=== PATIENT | male | born 1955 | race Caucasian/White ===

== ENCOUNTER 2016-06-30 14:06 | Inpatient (IN) ==
[2016-06-30] MEDS ORDERED: Naloxone 0.4 MG/ML INJ IVP PRN (17:21)
[2016-06-30] MEDS ORDERED: *HR* LORazepam 2 MG/ML VIAL IVP PRN ×2 (17:28)
[2016-06-30] MEDS ORDERED: NON-FORMULARY MEDICATION 1 EACH EACH (Albuterol Sulfate [Albuterol Sulfate] 2.5 MG) IH PRN (17:29)
--- NOTE | 2016-06-30 17:47 | Internal Med History&Physical ---
Date of Encounter: 06/30/16 Time of Encounter: 17:30 Assessment and Plan (1) Recurrent cellulitis of lower leg Current visit: Yes Status: Acute Patient will be treated with IV antibiotics-vancomycin and Zosyn. Failed outpatient treatment. Monitor vital signs. (2) Pleural effusion, right Current visit: Yes Status: Acute Right-sided large pleural effusion. No prior images available to review. We will consult IR for paracentesis. Follow results of pleural fluid analysis. (3) Essential hypertension Current visit: Yes Status: Chronic Monitor blood pressure. Continue home medications. (4) Alcohol abuse Current visit: Yes Status: Acute Chronic alcohol abuse. At risk for alcohol withdrawal. We will place patient on CIWA protocol. High risk for complications due to use of IV Ativan. (5) Pneumonia Current visit: No Status: Suspected Chest x-rays findings suggestive of underlying pneumonia. Most likely aspiration given the history of alcohol abuse. Will treat with Zosyn. Qualifiers: Pneumonia type: aspiration pneumonia Aspiration pneumonia type: unspecified Laterality: right Lung location: lower lobe of lung Qualified Code(s): J69.0 - Pneumonitis due to inhalation of food and vomit (6) Alcoholic liver disease Current visit: Yes Status: Chronic Patient appears to be having underlying alcoholic liver disease and cirrhosis. Liver enzymes are elevated. We will get ultrasound of the abdomen for further evaluation. Internal Medicine - H&P: HPI Chief complaint: Bilateral lower extremity redness and swelling Admitted From: Emergency Dept Plans for Post Hospital Care: Home History of present illness: Mr. Ackerman is a 60 year old male patient with a history of cirrhosis, chronic alcohol abuse, COPD, hyperlipidemia and hypertension who presented to the ER after being referred there by his primary care provider. Patient has been dealing with bilateral lower extremity cellulitis for about a month and has had multiple episodes of pneumonia that were treated with outpatient antibiotics. He recently was started on Keflex 1 week back with no improvement in his cellulitis. As such was asked to go to the ER for further evaluation. Patient currently complains of about 5 out of 10 pain in his bilateral lower extremities. This has progressively been getting worse. He denies any shortness of breath or chest pain. No nausea or vomiting. He drinks alcohol regularly and takes about 30 beers every day. No fever chills or night sweats. No nausea or vomiting. No hematemesis or melena. Past Med Surg Social Fam HX - Past Medical History Attestation: Yes The following information was validated with the patient. Source: patient, old records reviewed Medical history: cirrhosis, COPD, hyperlipidemia, hypertension - Social History Smoking Status: Current every day smoker Smokeless Tobacco Status: No Alcohol use: heavy Drug use: none - Additional Family History Additional family history: Reviewed and found to be noncontributory at this time Internal Medicine - H&P: Meds Albuterol Sulfate 2.5 mg IH Q6H PRN 06/30/16 [History] Albuterol Sulfate [Proair Hfa] 2 puff IH Q4H PRN 06/30/16 [History] Cephalexin [Keflex] 500 mg PO Q6HR 06/30/16 [History] Gabapentin [Neurontin] 800 mg PO Q6H 06/30/16 [History] Ibuprofen [Motrin] 800 mg PO Q8HR PRN 06/30/16 [History] Lisinopril-HCTZ 20-12.5 [Prinzide 20-12.5] 1 each PO BID 06/30/16 [History] Metoprolol [Lopressor] 50 mg PO BID 06/30/16 [History] Omeprazole 20 mg PO DAILY 06/30/16 [History] Allergies codeine Allergy (Verified 06/30/16 11:49) See Comments Penicillins Allergy (Verified 06/30/16 11:49) See Comments All Systems PM: A 10-system review of systems was performed and is negative for pertinent findings except as documented above in the HPI. - Constitutional Constitutional: no chills, no fever(s), no night sweats - EENT Eyes: no change in vision, no discharge, no pain, no photophobia Ears: no ear discharge, no ear pain, no tinnitus Nose, mouth and throat: no dysphagia, no nasal discharge, no neck pain, no sore throat - Cardiovascular Cardiovascular ROS IM: no chest pain, no diaphoresis, no dyspnea, no lightheadedness, no palpitations, no syncope - Respiratory Respiratory: no cough, no dyspnea, no wheezing, no excessive phlegm production - Gastrointestinal Gastrointestinal: no abdominal pain, no diarrhea, no hematemesis, no hematochezia, no melena, no nausea, no vomiting - Musculoskeletal Musculoskeletal ROS IM: no numbness, no tingling - Integumentary Integumentary IM: erythema (In bilateral lower extremities) - Neurological Neurological ROS: no confusion, no convulsions, no focal weakness, no numbness, no tingling, no tremor(s) - Hematologic/Lymphatic Hematologic/Lymphatic: no easy bruising - Constitutional General appearance: Present: cooperative, mild distress, A&O X 3, answers questions appropriately - Neck Neck exam general surgery: Present: supple, trachea midline. Absent: lymphadenopathy - Respiratory Respiratory exam: Present: decreased breath sounds (In right lower lobe), prolonged expiratory phase. Absent: accessory muscle use, rales, rhonchi, wheezes - Cardiovascular Cardiovascular exam: Present: RRR, +S1, +S2. Absent: diastolic murmur, gallop, rubs, systolic murmur - GI/Abdominal GI/Abdominal exam: Present: normal bowel sounds, soft, no peritoneal signs. Absent: distended, tenderness - Extremities Exam Extremities exam: Present: warm, radial pulses palpable and symetrical. Absent : calf tenderness, cyanotic, pedal edema Additional comments: Bilateral lower extremity cellulitis extending from the ankle up to the knee on both legs circumferentially. No discharge. Warm to touch. Tenderness to palpation. - Neurological Exam Neurological exam: Present: CN II-XII intact, oriented X3, no focal deficits. Absent: facial droop, speech deficit - Skin Skin exam: Present: dry, erythema (As described above), intact Internal Med - H&P Results - Impressions Reviewed chest x-ray which shows large right-sided pleural effusion with possible underlying atelectasis/infiltrate - Attending Attestation This document has been at least partially created by [employer] voice recognition technology by Dr. Naidu. Errors in grammar, wording or other phrases may exist. If errors are found after the documentation is signed, they will be addressed individually in the addendum section of this document when appropriate.
[2016-06-30] MEDS: Gabapentin 400 MG CAPSULE PO SCH ×2 (19:11→21:11)
[2016-06-30] MEDS: Lisinopril-HCTZ 20-12.5mg TABLET PO SCH (21:11)
[2016-06-30] MEDS: Lactobacillus 1 EACH CAP.SPRINK PO SCH (21:12)
[2016-06-30] MEDS: *HR* HYDROcodone/Acet 5/325 mg TABLET PO PRN (21:12)
[2016-06-30] MEDS: 0.9 % Sodium Chloride 1,000 ML IVC SCH (21:18)
[2016-06-30] MEDS: *HR* LORazepam 2 MG/ML VIAL IVP PRN (22:07)
[2016-07-01] MEDS: Clindamycin 600 MG/50 ML 600 MG/50 ML IV.SOLN IVPB SCH ×2 (00:07→07:45)
[2016-07-01] MEDS: Gabapentin 400 MG CAPSULE PO SCH ×4 (00:07→16:52)
[2016-07-01] MEDS ORDERED: Vancomycin 1,500 MG in D5% in Water 250 ML IVPB SCH (02:00)
[2016-07-01] MEDS: *HR* HYDROcodone/Acet 5/325 mg TABLET PO PRN ×2 (02:07→07:40)
[2016-07-01] MEDS: *HR* LORazepam 2 MG/ML VIAL IVP PRN ×4 (02:09→20:30)
[2016-07-01 04:58] LABS: Basophils % 0.3 %; Hematocrit 42.2 % (37.5-50.1); Hemoglobin 13.9 g/dL (12.9-16.9); Immature Granulocytes % 0.5 % (0-4); Lymphocytes # 0.4 K/mcL (0.6-4.6); Lymphocytes % 10.3 %; Mean Corpuscular HGB Conc 32.9 g/dL (31.6-35.5); Mean Corpuscular Hemoglobin 29.1 pg (28.0-33.3); Mean Corpuscular Volume 88.3 fL (83.0-100.0); Mean Platelet Volume 8.7 fL (9.4-12.4); Monocytes # 0.4 K/mcL (0.0-1.3); Monocytes % 9.8 %; Neutrophils # 2.9 K/mcL (1.6-8.9); Platelet Count 141 K/mcL (140-400); Red Blood Count 4.78 M/mcL (4.19-5.50); Red Cell Distribution Width 18.8 % (11.5-14.5); Segmented Neutrophils % 79.1 %
[2016-07-01 05:15] LABS: BUN/Creatinine Ratio 5 (6-26); Calcium 8.4 mg/dL (8.6-10.8); Carbon Dioxide 27 mEq/L (19-29); Chloride 92 mEq/L (98-109); Glucose 158 mg/dL (70-99); Osmolality,Calculated 270 (280-300); Potassium 4.3 mEq/L (3.5-4.5); Sodium 130 mEq/L (136-145); eGFR For African Americans > 60 (> 60); eGFR For Non-African Americans > 60 (> 60)
[2016-07-01 05:16] LABS: Blood Urea Nitrogen 3 mg/dL (8-26)
[2016-07-01] MEDS: *HR* Enoxaparin 40 MG/0.4 ML SYRINGE SQ SCH (05:46)
[2016-07-01] MEDS: Folic Acid 1 MG TABLET PO SCH (07:40)
[2016-07-01] MEDS: Lisinopril-HCTZ 20-12.5mg TABLET PO SCH ×2 (07:40→20:30)
[2016-07-01] MEDS: Lactobacillus 1 EACH CAP.SPRINK PO SCH ×2 (07:40→20:30)
[2016-07-01] MEDS: Vitamin B Complex/Vit C/Vit E 1 EACH TABLET PO SCH (07:40)
[2016-07-01] MEDS: Thiamine (B-1) 100 MG TABLET PO SCH (07:40)
[2016-07-01] MEDS: 0.9 % Sodium Chloride 1,000 ML IVC SCH (07:47)
--- NOTE | 2016-07-01 10:28 | IR Procedure Note ---
Date of procedure: 07/01/16 Consent Obtained: Written consent Timeout: Correct patient and procedure verified, Correct site verified, Time out performed, Skin prep completed Local anesthetic: Lidocaine 1% Indications: Right pleural effusion Procedure Performed: Right thoracentesis Complications: None; Tolerated procedure well (Monitor on floor)
--- NOTE | 2016-07-01 16:15 | Internal Med Progress Note ---
Date of Encounter: 07/01/16 Time of Encounter: 15:00 - Assessment and plan (1) Pleural effusion, right Current Visit: Yes Status: Acute Assessment and plan: s/p thoracentesis, will obtain tests to rule out exuadte vs transudate. continue monitoring. fluid restrcition. (2) Alcoholic liver disease Current Visit: Yes Status: Chronic Assessment and plan: chronic alcohol intake. risk for DT. DT prophlyaixs. librium started. monitor lfts. (3) Essential hypertension Current Visit: Yes Status: Chronic Assessment and plan: likely elevated bp due to alcohol withdrwal, will ocntinue monitiring. (4) Pneumonia Current Visit: No Status: Suspected Assessment and plan: allergic to penicilins, risk of aspiration, xray concerning for pneumonia, will switch from clindamycin and give cephalosporins, rocephin, and flagyl por possible aspiration pneumonia since he was receving keflex as outpatient wothout reactions. Qualifiers: Pneumonia type: aspiration pneumonia Aspiration pneumonia type: unspecified Laterality: right Lung location: lower lobe of lung Qualified Code(s): J69.0 - Pneumonitis due to inhalation of food and vomit - Subjective Interval history: first encounter with the patient. seen and examined s/p thoracentesis. complains of distal tremors. productive cough, he has chronic cough for many months. chronic active smoker. drinks beer daily, last drink 2 days ago. - Constitutional Vitals: Temp Pulse Resp BP Pulse Ox 97.5 F L 88 20 164/104 97 07/01/16 11:47 07/01/16 11:47 07/01/16 11:47 07/01/16 11:47 07/01/16 11:47 General appearance: Present: cooperative, mild distress, A&O X 3, answers questions appropriately - Head Head exam: Present: atraumatic, normocephalic - Eye Eye exam: Present: PERRL, conjuntiva pink, sclera anicteric Pupils: Present: PERRL - Neck Neck exam general surgery: Present: supple, trachea midline. Absent: lymphadenopathy - Respiratory Respiratory exam: Present: decreased breath sounds, CTAB. Absent: accessory muscle use, rales, rhonchi, wheezes - Cardiovascular Cardiovascular exam: Present: RRR, +S1, +S2. Absent: diastolic murmur, gallop, rubs, systolic murmur - GI/Abdominal GI/Abdominal exam: Present: normal bowel sounds, soft, no peritoneal signs. Absent: distended, tenderness - Extremities Exam Extremities exam: Present: warm, radial pulses palpable and symetrical. Absent : calf tenderness, cyanotic, pedal edema - Neurological Exam Neurological exam: Present: CN II-XII intact, oriented X3, no focal deficits. Absent: pronater drift, facial droop, speech deficit - Skin Skin exam: Present: dry, intact Internal Medicine: Result - Labs CBC & Chem 7: 07/01/16 04:30 07/01/16 04:30 Labs: Short CBC 07/01/16 Range/Units 04:30 WBC 3.7 L (4.3-11.1) K/mcL Hgb 13.9 (12.9-16.9) g/dL Hct 42.2 (37.5-50.1) % Plt Count 141 (140-400) K/mcL Neutrophils # 2.9 (1.6-8.9) K/mcL BMP 07/01/16 04:30 Sodium 130 L Potassium 4.3 Chloride 92 L Carbon Dioxide 27 BUN 3 L Creatinine 0.58 L Glucose 158 H Calcium 8.4 L - Impressions Impressions Liver Ultrasound 06/30/16 19:45 IMPRESSION: 1. Limited evaluation due to overlying bowel gas. The gallbladder is not identified and evaluated. 2. Fatty liver. 3. Right pleural effusion. D/ / Prince Kohler MD / Prince Kohler MD Interpreting Provider: Prince Kohler MD Paracentesis Ultrasound 07/01/16 00:00 IMPRESSION: 1. Successful ultrasound guided right thoracentesis. D/ / Jarrod Lopez MD / Jarrod Lopez MD Interpreting Provider: Jarrod Lopez MD Chest X-Ray 07/01/16 10:28 IMPRESSION: Decreased size of right pleural effusion status post thoracentesis. No evidence of pneumothorax. Persistent volume loss, and right basilar opacity. D/ / Yonathan Skaggs MD / Yonathan Skaggs MD Interpreting Provider: Yonathan Skaggs MD Consult Discharge Plan - Plan Referrals: Tootie Montano, SMELLER [Primary Care Provider] - 07/07/16 11:00 am (Please follow up as schedule..)
[2016-07-01] MEDS: Vancomycin 1,500 MG in D5% in Water 250 ML IVPB SCH (16:33)
[2016-07-01] MEDS: MetroNIDAZOLE 500 MG/100 ML 500 MG/100 ML BAG IVPB SCH (16:55)
[2016-07-01 17:10] LABS: LDH,Pleural Fluid 317 Units/L (No Ref Range); Total Protein,Pleural Fluid 3.4 g/dL (No Ref Range)
[2016-07-01 17:26] LABS: RBC,Pleural Fluid 0.004 M/mcL
[2016-07-01 17:50] LABS: Appearance of Pleural Fl Clear (Clear)
[2016-07-02] MEDS: Gabapentin 400 MG CAPSULE PO SCH ×4 (00:15→17:25)
[2016-07-02] MEDS: MetroNIDAZOLE 500 MG/100 ML 500 MG/100 ML BAG IVPB SCH ×3 (00:15→16:14)
[2016-07-02] MEDS: *HR* LORazepam 2 MG/ML VIAL IVP PRN ×6 (00:15→23:05)
[2016-07-02] MEDS: Vancomycin 1,500 MG in D5% in Water 250 ML IVPB SCH ×2 (03:56→17:21)
[2016-07-02 04:25] LABS: Basophils % 0.5 %; Eosinophils # 0.1 K/mcL (0.0-0.6); Eosinophils % 0.9 %; Hematocrit 39.7 % (37.5-50.1); Hemoglobin 12.8 g/dL (12.9-16.9); Immature Granulocytes % 0.3 % (0-4); Lymphocytes # 1.2 K/mcL (0.6-4.6); Mean Corpuscular HGB Conc 32.2 g/dL (31.6-35.5); Mean Corpuscular Hemoglobin 28.4 pg (28.0-33.3); Mean Platelet Volume 8.8 fL (9.4-12.4); Monocytes # 0.3 K/mcL (0.0-1.3); Monocytes % 5.2 %; Neutrophils # 4.2 K/mcL (1.6-8.9); Platelet Count 127 K/mcL (140-400); Red Blood Count 4.51 M/mcL (4.19-5.50); Red Cell Distribution Width 18.8 % (11.5-14.5); Segmented Neutrophils % 72.1 %
[2016-07-02 04:38] LABS: BUN/Creatinine Ratio 9 (6-26); Blood Urea Nitrogen 5 mg/dL (8-26); Calcium 8.2 mg/dL (8.6-10.8); Carbon Dioxide 30 mEq/L (19-29); Chloride 92 mEq/L (98-109); Glucose 107 mg/dL (70-99); Osmolality,Calculated 268 (280-300); Potassium 3.3 mEq/L (3.5-4.5); Sodium 130 mEq/L (136-145); eGFR For African Americans > 60 (> 60); eGFR For Non-African Americans > 60 (> 60)
[2016-07-02 04:42] LABS: Albumin 2.7 g/dL (3.5-5.0); Albumin/Globulin Ratio 0.8 (1.1-2.2); Bilirubin,Direct 0.5 mg/dL (0.0-0.5); Bilirubin,Indirect 0.4 mg/dL (0.0-1.2); Bilirubin,Total 0.9 mg/dL (0.2-1.2); Globulin 3.3 g/dL (2.4-3.5)
[2016-07-02] MEDS: *HR* Enoxaparin 40 MG/0.4 ML SYRINGE SQ SCH (05:43)
[2016-07-02] MEDS: Thiamine (B-1) 100 MG TABLET PO SCH (09:52)
[2016-07-02] MEDS: Lactobacillus 1 EACH CAP.SPRINK PO SCH ×2 (09:52→21:30)
[2016-07-02] MEDS: Magnesium Oxide 400 MG TABLET PO SCH ×2 (09:52→21:31)
[2016-07-02] MEDS: Lisinopril-HCTZ 20-12.5mg TABLET PO SCH ×2 (09:52→21:31)
[2016-07-02] MEDS: Folic Acid 1 MG TABLET PO SCH (09:53)
[2016-07-02] MEDS: Vitamin B Complex/Vit C/Vit E 1 EACH TABLET PO SCH (09:53)
[2016-07-02] MEDS ORDERED: Magnesium Sulfate 1 GM in D5% in Water 100 ML IVPB ONE (10:45)
[2016-07-02] MEDS: Furosemide 40 MG TABLET PO SCH (11:36)
--- NOTE | 2016-07-02 11:41 | Internal Med Progress Note ---
Date of Encounter: 07/02/16 Time of Encounter: 11:39 - Assessment and plan (1) Pleural effusion, right Current Visit: Yes Status: Acute Assessment and plan: s/p thoracentesis, loile ytransudate, follow ldh continue monitoring. fluid restrcition. lasix and aldactone added in light of pssible chronic liver disease. will ocntinue motiring. (2) Alcoholic liver disease Current Visit: Yes Status: Chronic (3) Essential hypertension Current Visit: Yes Status: Chronic (4) Pneumonia Current Visit: No Status: Suspected Assessment and plan: allergic to penicilins, risk of aspiration, xray concerning for pneumonia, continue with rocephin, and flagyl por possible aspiration pneumonia since he was receving keflex as outpatient wothout reactions. Qualifiers: Pneumonia type: aspiration pneumonia Aspiration pneumonia type: unspecified Laterality: right Lung location: lower lobe of lung Qualified Code(s): J69.0 - Pneumonitis due to inhalation of food and vomit (5) Cellulitis Current Visit: Yes Status: Acute Assessment and plan: continue with vancomycn Qualifiers: Site of cellulitis: extremity Site of cellulitis of extremity: lower extremity Laterality: unspecified laterality Qualified Code(s): L03.119 - Cellulitis of unspecified part of limb - Subjective Interval history: seen and examined had atian and was under efect of medication during this encounter. productive cough, he has chronic cough for many months. chronic active smoker. drinks beer daily, last drink 2 days ago. - Constitutional Vitals: Temp Pulse Resp BP Pulse Ox 98.1 F 88 18 105/66 94 07/02/16 11:09 07/02/16 11:09 07/02/16 11:09 07/02/16 11:09 07/02/16 11:09 General appearance: Present: cooperative, A&O X 2, mild distress, answers questions appropriately - Head Head exam: Present: atraumatic, normocephalic - Eye Eye exam: Present: PERRL, conjuntiva pink, sclera anicteric Pupils: Present: PERRL - Neck Neck exam general surgery: Present: supple, trachea midline. Absent: lymphadenopathy - Respiratory Respiratory exam: Present: decreased breath sounds. Absent: accessory muscle use, rales, rhonchi, wheezes - Cardiovascular Cardiovascular exam: Present: RRR, +S1, +S2. Absent: diastolic murmur, gallop, rubs, systolic murmur - GI/Abdominal GI/Abdominal exam: Present: normal bowel sounds, soft, no peritoneal signs. Absent: distended, tenderness - Extremities Exam Extremities exam: Present: warm, radial pulses palpable and symetrical. Absent : calf tenderness, cyanotic, pedal edema - Neurological Exam Neurological exam: Present: CN II-XII intact, oriented X3, no focal deficits. Absent: pronater drift, facial droop, speech deficit - Skin Skin exam: Present: dry, intact Internal Medicine: Result - Labs CBC & Chem 7: 07/02/16 04:11 07/02/16 04:11 Labs: Short CBC 07/02/16 Range/Units 04:11 WBC 5.8 D (4.3-11.1) K/mcL Hgb 12.8 L (12.9-16.9) g/dL Hct 39.7 (37.5-50.1) % Plt Count 127 L (140-400) K/mcL Neutrophils # 4.2 (1.6-8.9) K/mcL BMP 07/02/16 04:11 Sodium 130 L Potassium 3.3 L D Chloride 92 L Carbon Dioxide 30 H BUN 5 L Creatinine 0.54 L Glucose 107 H Calcium 8.2 L Liver Function 07/02/16 Range/Units 04:11 Total Bilirubin 0.9 (0.2-1.2) mg/dL Direct Bilirubin 0.5 (0.0-0.5) mg/dL AST 62 H (5-34) Units/L ALT 49 (0-55) Units/L Alkaline Phosphatase 121 (38-126) Units/L Albumin 2.7 L (3.5-5.0) g/dL Consult Discharge Plan - Plan Referrals: Tootie Montano, CRANE CHASER [Primary Care Provider] - 07/07/16 11:00 am (Please follow up as schedule..)
--- NOTE | 2016-07-02 16:20 | ECHO - Doppler Report ---
Echocardiogram Name: Ivan Ackerman Date of Study: 07/02/2016 Date: 1955 Ht: 70.0 in Medical Record#: [id number] Age: 60 Wt: 231.0 lb Gender: Male BSA: 2.22 Order #: [id number] Location: [facility] Room #: 2A34 Reading Physician: Neeraj Garcia DO, FACLazaro, RORY Space Control Supervisor: CHASTITY ChawlaT, RD Ordering Physician: Perry Durant MD Primary Physician: Tootie Montano CNP Indications: LVF assessment Impressions: LVEF 60-65%. Normal LV chamber size, wall thickness and function. Mild left ventricular diastolic dysfunction. Right ventricle was not well visualized. Grossly, it is normal in function. No evidence of pulmonary hypertension. No obvious significant valvular dysfunction. Left Ventricular Wall Motion: Rest Echo Findings All wall segments showed normal motion. Findings: Study Quality * Technically sub-optimal due to poor echocardiographic windows. ECG Findings * Normal sinus rhythm. Left Ventricle * LVEF 60-65%. * Normal LV chamber size, wall thickness and function. * Mild left ventricular diastolic dysfunction. Right Ventricle * Right ventricle was not well visualized. Grossly, it is normal in function. Left Atrium * Left atrium is not visualized well enough to quantify size. Right Atrium * Right atrium is not visualized well enough to quantify size. Interatrial Septum * Interatrial septum not well evaluated. Aortic Valve * Aortic valve not well visualized. * No aortic regurgitation. * No aortic stenosis. Mitral Valve * Mild mitral annular calcification. * No mitral regurgitation. * No mitral stenosis. Tricuspid Valve * Normal tricuspid valve structure and function. * Trace tricuspid regurgitation. * No evidence of pulmonary hypertension. Pulmonic Valve * Pulmonic valve not well visualized. * No pulmonic regurgitation. Aorta * Normally sized aortic root. Pericardium * The pericardium appears normal. IVC * The IVC is not well evaluated. Pulmonary Artery * Pulmonary artery not well visualized. History Hypertension Hypercholesteremia Measurements: BP: 105/ 66 2D Normal Values RVIDd: 3.90 cm <2.7 cm IVSd: 1.20 cm 0.6 - 1.0 cm LVIDd: 4.50 cm 3.7 - 5.6 cm LVPWd: 1.30 cm 0.6 - 1.1 cm LVIDs: 3.00 cm 1.5 - 3.6 cm AO: 2.50 cm < 4.0 cm LA: 4.20 cm 2.0 - 4.0cm %FS: 33.30 cm >25 % LA volume: 96 Mitral Valve Dec Time:225.00 msec Peak E:.66 m/sec Peak A:.90 m/sec E/A Ratio:0.7 Peak E' Lat Frantz:9.55 cm/s Peak E' Med Frantz:4.97 cm/s E/E' Lat Ratio:6.9 E/E' Med Ratio:13.3 Tricuspid Valve TV Regurg Peak Grad: 19.00mmHg TV Regurg Peak Frantz: 2.17m/sec Updated by Neeraj Garcia DO, FACLazaro, RORY, THADDEUS on 07/02/2016 4:15:39 PM electronically signed on 07/02/2016 4:15:58 PM with status of Final Wall Motion Ramesh: 1=Normal, 2=Hypokinesis, 3=Akinesis, 4=Dyskinesis, 5=Aneurysmal, 6=Hyperkinetic, X=Not Visualized (Blank)=Missing
[2016-07-03] MEDS: *HR* LORazepam 2 MG/ML VIAL IVP PRN ×3 (00:26→21:39)
[2016-07-03] MEDS: MetroNIDAZOLE 500 MG/100 ML 500 MG/100 ML BAG IVPB SCH ×4 (00:26→23:30)
[2016-07-03] MEDS: Gabapentin 400 MG CAPSULE PO SCH ×5 (00:26→23:36)
[2016-07-03] MEDS: Vancomycin 1,500 MG in D5% in Water 250 ML IVPB SCH ×2 (03:59→18:11)
[2016-07-03 04:54] LABS: Albumin 2.7 g/dL (3.5-5.0); Albumin/Globulin Ratio 0.7 (1.1-2.2); Bilirubin,Direct 0.5 mg/dL (0.0-0.5); Bilirubin,Indirect 0.7 mg/dL (0.0-1.2); Bilirubin,Total 1.2 mg/dL (0.2-1.2); Globulin 3.7 g/dL (2.4-3.5); Total Protein 6.4 g/dL (6.0-8.3)
[2016-07-03] MEDS: *HR* Enoxaparin 40 MG/0.4 ML SYRINGE SQ SCH (05:50)
[2016-07-03] MEDS: Vitamin B Complex/Vit C/Vit E 1 EACH TABLET PO SCH (08:11)
[2016-07-03] MEDS: Lactobacillus 1 EACH CAP.SPRINK PO SCH ×2 (08:11→21:39)
[2016-07-03] MEDS: Thiamine (B-1) 100 MG TABLET PO SCH (08:11)
[2016-07-03] MEDS: Magnesium Oxide 400 MG TABLET PO SCH ×2 (08:12→21:39)
[2016-07-03] MEDS: Lisinopril-HCTZ 20-12.5mg TABLET PO SCH ×2 (08:12→21:39)
[2016-07-03] MEDS: Furosemide 40 MG TABLET PO SCH (08:12)
[2016-07-03] MEDS: Folic Acid 1 MG TABLET PO SCH (08:12)
[2016-07-03] MEDS ORDERED: Magnesium Sulfate 2 GM in D5% in Water 100 ML IVPB ONE (08:23)
[2016-07-03 08:56] LABS: Basophils # 0.1 K/mcL (0.0-0.2); Basophils % 0.8 %; Eosinophils # 0.2 K/mcL (0.0-0.6); Eosinophils % 3.5 %; Hemoglobin 13.7 g/dL (12.9-16.9); Immature Granulocytes % 0.5 % (0-4); Lymphocytes # 1.4 K/mcL (0.6-4.6); Lymphocytes % 20.9 %; Mean Corpuscular HGB Conc 32.6 g/dL (31.6-35.5); Mean Corpuscular Hemoglobin 29.4 pg (28.0-33.3); Mean Corpuscular Volume 90.1 fL (83.0-100.0); Mean Platelet Volume 9.4 fL (9.4-12.4); Monocytes # 0.7 K/mcL (0.0-1.3); Monocytes % 9.8 %; Neutrophils # 4.3 K/mcL (1.6-8.9); Platelet Count 114 K/mcL (140-400); Red Blood Count 4.66 M/mcL (4.19-5.50); Red Cell Distribution Width 18.6 % (11.5-14.5); Segmented Neutrophils % 64.5 %
[2016-07-03 09:06] LABS: BUN/Creatinine Ratio 9 (6-26); Blood Urea Nitrogen 7 mg/dL (8-26); Calcium 9.2 mg/dL (8.6-10.8); Carbon Dioxide 33 mEq/L (19-29); Chloride 91 mEq/L (98-109); Glucose 105 mg/dL (70-99); Osmolality,Calculated 280 (280-300); Potassium 3.8 mEq/L (3.5-4.5); Sodium 136 mEq/L (136-145); eGFR For African Americans > 60 (> 60); eGFR For Non-African Americans > 60 (> 60)
--- NOTE | 2016-07-03 10:57 | Pulmonology Consult Note ---
Date of Encounter: 07/03/16 Time of Encounter: 10:30 Assessment and Plan (1) Pleural effusion, right Current Visit: Yes Status: Acute I reviewed his CT chest and pleural fluid analysis which made exudative criteria and predominantly is lymphocytic with differential diagnosis of tumor, TB, or a resolving process such as pneumonia. He also has eosinophilia in the fluid with differential diagnosis of blood or air in the pleural space (no evidence of pneumothorax), drug reaction, paragonimiasis and less, and the TB and malignancy. Since the fluid was not sent for complete workup, which confirmed there is still fluid in the lab and added workup for TB, cytology, cultures and due to his alcohol abuse added Amylase. This was discussed with primary team and thank you for consultation would have more recommendation one we have those results back. (2) Pneumonia Current Visit: No Status: Suspected Patient is high risk of aspiration and I suspect chronic aspiration since he mainly right side. Consider changing antibiotics to Unasyn with aspiration precaution.. Qualifiers: Pneumonia type: aspiration pneumonia Aspiration pneumonia type: unspecified Laterality: right Lung location: lower lobe of lung Qualified Code(s): J69.0 - Pneumonitis due to inhalation of food and vomit (3) Alcoholic liver disease Current Visit: Yes Status: Chronic (4) Cellulitis Current Visit: Yes Status: Acute Qualifiers: Site of cellulitis: extremity Site of cellulitis of extremity: lower extremity Laterality: unspecified laterality Qualified Code(s): L03.119 - Cellulitis of unspecified part of limb History of Present Illness Consult date: 07/03/16 Requesting physician: Perry Durant Reason for consult: pleural effusion Chief complaint: Bilateral lower extremity swelling/cellulitis History of present illness: This is a 60-year-old male with significant history of liver cirrhosis secondary to chronic alcohol abuse and COPD. He is very lethargic and sleepy this morning am not able to obtain a reliable history from him and not able to reach a family member for that reason this history is taken from the chart. Apparently this gentleman was referred to the emergency room by his primary care physician for the bilateral lower extremity cellulitis and multiple episodes of pneumonia which was treated as outpatient. According to the chart patient denies any shortness of breath or chest pain and there was no nausea or vomiting. He continued to drink alcohol regularly. I am not able to obtain any history regarding previous TB history or sick contact. Past Med Surg Social Fam HX - Past Medical History Medical history: cirrhosis, COPD, hyperlipidemia, hypertension - Social History Smoking Status: Current every day smoker Packs per day: 1 Smokeless Tobacco Status: No Alcohol use: heavy Drug use: none - Family History Father Hx Family Medical Disorders: (DVT) Medications and Allergies Albuterol Sulfate 2.5 mg IH Q6H PRN 06/30/16 [History] Albuterol Sulfate [Proair Hfa] 2 puff IH Q4H PRN 06/30/16 [History] Cephalexin [Keflex] 500 mg PO Q6HR 06/30/16 [History] Gabapentin [Neurontin] 800 mg PO Q6H 06/30/16 [History] Ibuprofen [Motrin] 800 mg PO Q8HR PRN 06/30/16 [History] Lisinopril-HCTZ 20-12.5 [Prinzide 20-12.5] 1 each PO BID 06/30/16 [History] Metoprolol [Lopressor] 50 mg PO BID 06/30/16 [History] Omeprazole 20 mg PO DAILY 06/30/16 [History] Allergies codeine Allergy (Verified 06/30/16 11:49) See Comments Penicillins Allergy (Verified 07/01/16 12:03) Rash ROS unobtainable: due to mental status All Systems: A 10-system review of systems was performed and is negative for pertinent findings except as documented above in the HPI. Physical Examination Vital Signs: Vital Signs, Last 4 Hours Temp Pulse Resp BP Pulse Ox 07/03/16 06:57 97.5 F L 82 18 99/62 92 General appearance: lethargic ENT: oropharynx dry, other (Food in the mouth) Neck: supple, no JVD Effort: normal Auscultation: left: rhonchi, right: diminished breath sounds Percussion: left: not dull, right: dull Cardiovascular: regular rate and rhythm Gastrointestinal: normoactive bowel sounds, soft, non-tender Extremities: edema, other (Cellulitis with erythema) unable to assess due to mental status Results - Laboratory Findings CBC and BMP: 07/03/16 08:46 07/03/16 08:46 Abnormal lab findings: Abnormal lab results RDW 18.6 % (11.5-14.5) H 07/03/16 08:46 Plt Count 114 K/mcL (140-400) L 07/03/16 08:46 Chloride 91 mEq/L (98-109) L 07/03/16 08:46 Carbon Dioxide 33 mEq/L (19-29) H 07/03/16 08:46 BUN 7 mg/dL (8-26) L 07/03/16 08:46 Glucose 105 mg/dL (70-99) H 07/03/16 08:46 Magnesium 1.2 mg/dL (1.6-2.6) L 07/03/16 04:31 AST 62 Units/L (5-34) H 07/03/16 04:31 Albumin 2.7 g/dL (3.5-5.0) L 07/03/16 04:31 Globulin 3.7 g/dL (2.4-3.5) H 07/03/16 04:31 Albumin/Globulin Ratio 0.7 (1.1-2.2) L 07/03/16 04:31 Pleural RBC 0.004 M/mcL (0.000-0.002) H 07/01/16 10:15 - Diagnostic Findings CT scan - chest: report reviewed, image reviewed - Clinical Findings Intake & Output: Intake & Output 07/02/16 07/03/16 07/03/16 23:59 07:59 15:59 Intake Total 570 / 570 100 / 100 Balance 570 / 570 100 / 100 Weight 104.6 kg Consult Discharge Plan - Plan Referrals: Tootie Montano, [employer] [Primary Care Provider] - 07/07/16 11:00 am (Please follow up as schedule..)
--- NOTE | 2016-07-03 13:14 | Internal Med Progress Note ---
Date of Encounter: 07/03/16 Time of Encounter: 11:00 - Assessment and plan (1) Pleural effusion, right Current Visit: Yes Status: Acute Assessment and plan: s/p thoracentesis, fluid consistent with exudate, ct obtained yesterday, which revealed a residual pneumothroax, pulmonology consulted in light of exudate fluid, will follow recommendations and follow pleural fluid results. broad differential including parapneumonic vs tb or even malignancy. continue monitoring. fluid restriction. lasix and aldactone stopped since fluid was not transudate. (2) Alcoholic liver disease Current Visit: Yes Status: Chronic Assessment and plan: chronic alcohol intake. risk for DT. DT prophlyaixs. librium started. monitor lfts. (3) Essential hypertension Current Visit: Yes Status: Chronic (4) Pneumonia Current Visit: No Status: Suspected Assessment and plan: allergic to penicilins, risk of aspiration, xray concerning for pneumonia, continue with rocephin, and flagyl por possible aspiration pneumonia since he was receving keflex as outpatient wothout reactions. Qualifiers: Pneumonia type: aspiration pneumonia Aspiration pneumonia type: unspecified Laterality: right Lung location: lower lobe of lung Qualified Code(s): J69.0 - Pneumonitis due to inhalation of food and vomit (5) Cellulitis Current Visit: Yes Status: Acute Assessment and plan: continue with vancomycn Qualifiers: Site of cellulitis: extremity Site of cellulitis of extremity: lower extremity Laterality: unspecified laterality Qualified Code(s): L03.119 - Cellulitis of unspecified part of limb (6) Hypomagnesemia Current Visit: Yes Status: Acute Assessment and plan: will give iv magnesium today and continue wth po. continue monitoring levels. - Subjective Interval history: seen and examined had atian and was under efect of medication during this encounter. chronic active smoker. drinks beer daily, last drink 3 days ago. - Constitutional Vitals: Temp Pulse Resp BP Pulse Ox 98.0 F 81 18 106/70 95 07/03/16 12:29 07/03/16 12:29 07/03/16 12:29 07/03/16 12:29 07/03/16 12:29 General appearance: Present: mild distress, answers questions appropriately - Head Head exam: Present: atraumatic, normocephalic - Eye Eye exam: Present: PERRL, conjuntiva pink, sclera anicteric Pupils: Present: PERRL - Neck Neck exam general surgery: Present: supple, trachea midline. Absent: lymphadenopathy - Respiratory Respiratory exam: Present: decreased breath sounds. Absent: accessory muscle use, rales, rhonchi, wheezes - Cardiovascular Cardiovascular exam: Present: RRR, +S1, +S2. Absent: diastolic murmur, gallop, rubs, systolic murmur - GI/Abdominal GI/Abdominal exam: Present: normal bowel sounds, soft, no peritoneal signs. Absent: distended, tenderness - Extremities Exam Extremities exam: Present: warm, radial pulses palpable and symetrical. Absent : calf tenderness, cyanotic, pedal edema - Neurological Exam Neurological exam: Present: CN II-XII intact, oriented X3, no focal deficits. Absent: pronater drift, facial droop, speech deficit - Skin Skin exam: Present: dry, intact Internal Medicine: Result - Labs CBC & Chem 7: 07/03/16 08:46 07/03/16 08:46 Labs: Short CBC 07/03/16 Range/Units 08:46 WBC 6.6 (4.3-11.1) K/mcL Hgb 13.7 (12.9-16.9) g/dL Hct 42.0 (37.5-50.1) % Plt Count 114 L (140-400) K/mcL Neutrophils # 4.3 (1.6-8.9) K/mcL BMP 07/03/16 08:46 Sodium 136 Potassium 3.8 Chloride 91 L Carbon Dioxide 33 H BUN 7 L Creatinine 0.77 Glucose 105 H Calcium 9.2 Liver Function 07/03/16 Range/Units 04:31 Total Bilirubin 1.2 (0.2-1.2) mg/dL Direct Bilirubin 0.5 (0.0-0.5) mg/dL AST 62 H (5-34) Units/L ALT 49 (0-55) Units/L Alkaline Phosphatase 112 (38-126) Units/L Albumin 2.7 L (3.5-5.0) g/dL - Impressions Impressions Chest CT 07/02/16 17:31 IMPRESSION: Trace right pneumothorax with moderate to large pleural effusion remaining. Trace pneumothorax may relate to previous day thoracentesis. Severe consolidative changes in the right lung as described above. More nonspecific patchy ground-glass airspace disease is seen in the left upper lobe. Pneumonia and pulmonary edema are primary considerations. Recommend follow-up chest x-ray in approximately 12 hours time to ensure that the right-sided pneumothorax does not increase in size. This could be performed at a sooner interval if clinically indicated. The findings and recommendations were discussed with Dr. Durant at 6:59 p.m., 07/02/2016. D/ / 07/02/2016 18:54:18 Alberto Christina MD / nikki Interpreting Provider: Alberto Christina MD Chest X-Ray 07/03/16 06:00 IMPRESSION: 1. Larger right pleural effusion with associated atelectasis in the right lung base. Underlying hemothorax cannot be excluded. 2. Low lung volumes. D/ / Mu Andre MD / Mu Andre MD Interpreting Provider: Mu Andre MD Consult Discharge Plan - Plan Referrals: Tootie Montano CNP [Primary Care Provider] - 07/07/16 11:00 am (Please follow up as schedule..)
[2016-07-04 04:25] LABS: Hemoglobin 13.7 g/dL (12.9-16.9)
[2016-07-04 04:28] LABS: Basophils % 0.4 %; Eosinophils # 0.4 K/mcL (0.0-0.6); Eosinophils % 6.4 %; Hematocrit 42.6 % (37.5-50.1); Immature Granulocytes % 0.4 % (0-4); Immature Platelets 4.5 % (1.1-6.1); Lymphocytes # 1.3 K/mcL (0.6-4.6); Lymphocytes % 23.3 %; Mean Corpuscular HGB Conc 32.2 g/dL (31.6-35.5); Mean Corpuscular Hemoglobin 29.3 pg (28.0-33.3); Mean Platelet Volume 9.5 fL (9.4-12.4); Monocytes # 0.6 K/mcL (0.0-1.3); Monocytes % 11.3 %; Neutrophils # 3.2 K/mcL (1.6-8.9); Red Blood Count 4.68 M/mcL (4.19-5.50); Red Cell Distribution Width 18.6 % (11.5-14.5); Segmented Neutrophils % 58.2 %
[2016-07-04 04:37] LABS: BUN/Creatinine Ratio 12 (6-26); Blood Urea Nitrogen 12 mg/dL (8-26); Calcium 8.9 mg/dL (8.6-10.8); Carbon Dioxide 29 mEq/L (19-29); Chloride 94 mEq/L (98-109); Glucose 79 mg/dL (70-99); Osmolality,Calculated 275 (280-300); Potassium 4.2 mEq/L (3.5-4.5); Sodium 133 mEq/L (136-145); eGFR For African Americans > 60 (> 60); eGFR For Non-African Americans > 60 (> 60)
[2016-07-04 04:51] LABS: Albumin 2.7 g/dL (3.5-5.0); Albumin/Globulin Ratio 0.7 (1.1-2.2); Bilirubin,Indirect 0.7 mg/dL (0.0-1.2); Total Protein 6.7 g/dL (6.0-8.3)
[2016-07-04 04:54] LABS: Bilirubin,Direct 0.3 mg/dL (0.0-0.5)
[2016-07-04] MEDS: *HR* Enoxaparin 40 MG/0.4 ML SYRINGE SQ SCH (05:13)
[2016-07-04] MEDS: Vancomycin 1,500 MG in D5% in Water 250 ML IVPB SCH (05:13)
[2016-07-04] MEDS: Gabapentin 400 MG CAPSULE PO SCH ×4 (05:15→22:37)
[2016-07-04 05:25] LABS: Platelet Count 83 K/mcL (140-400)
[2016-07-04 05:29] LABS: Anisocytosis 1+ (Not Present); Large Platelets Present (Not Present); Macrocytosis Present (Not Present); Platelet Estimate Decreased (Normal); Polychromasia 1+ (Not Present)
[2016-07-04] MEDS ORDERED: Aminoglycoside Consult 1 EACH MC ONE (07:58)
[2016-07-04] MEDS: Lactobacillus 1 EACH CAP.SPRINK PO SCH ×2 (09:11→22:37)
[2016-07-04] MEDS: Folic Acid 1 MG TABLET PO SCH (09:11)
[2016-07-04] MEDS: Thiamine (B-1) 100 MG TABLET PO SCH (09:12)
[2016-07-04] MEDS: Lisinopril-HCTZ 20-12.5mg TABLET PO SCH ×2 (09:12→22:37)
[2016-07-04] MEDS: Vitamin B Complex/Vit C/Vit E 1 EACH TABLET PO SCH (09:12)
[2016-07-04] MEDS: *HR* HYDROcodone/Acet 5/325 mg TABLET PO PRN ×2 (09:18→15:30)
[2016-07-04 09:19] LABS: Amylase,Pleural Fluid 41 Units/L (No Ref Range)
--- NOTE | 2016-07-04 10:02 | Pulmonology Progress Note ---
<Brian Camacho - Last Filed: 07/04/16 10:28> Date of Encounter: 07/04/16 Time of Encounter: 09:46 Assessment and Plan (1) Pleural effusion, right Current Visit: Yes Status: Acute Thoracentesis performed on a right-sided pleural effusion correlate with an exudative process. Patient has risk factors of chronic alcoholism and risk of aspiration, close living quarters, history of hemoptysis. Lites criteria: LDH (0.68) greater than 0.60, protein ratio (0.57) greater than 0.50, pleural cholesterol is 49, pleural pH is 7.50: Correlates with an exudative pleural effusion - Acid-fast stain of pleural fluid was negative for acid-fast bacilli. - Adenosine deaminase of the pleural fluid has been ordered. - Suspects infectious process, patient is high risk for aspiration pneumonia with chronic alcoholism. DDx: Infectious bacterial pneumonia with empyema, parapneumonic effusion, less likely malignancy - Patient's antibiotic coverage includes Flagyl and ceftriaxone. (2) Pneumonia Current Visit: No Status: Suspected Patient is a high-risk for aspiration pneumonia with his chronic alcoholism. With his right-sided pleural effusion and consolidation this is suspicious for aspiration pneumonia. - Preliminary pleural fluid culture has no bacterial growth at 24 hours. - Continue on ceftriaxone and Flagyl Qualifiers: Pneumonia type: aspiration pneumonia Aspiration pneumonia type: unspecified Laterality: right Lung location: lower lobe of lung Qualified Code(s): J69.0 - Pneumonitis due to inhalation of food and vomit (3) Alcoholic liver disease Current Visit: Yes Status: Chronic Patient is a known alcoholic who drinks roughly 30 beers per day. Continue CIWA protocol and treat symptomatically. Subjective Principal diagnosis: pleural effusion Interval history: Mr. Ackerman 60-year-old male is seen and evaluated the patient bedside this morning. He is lethargic but responsive. He complains of right sided chest discomfort which she says has been going on for some time. He said they have been treated in the outpatient setting for pneumonia but that was not improving. He continues to have occasional coughing without sputum production. Admits to a history of hemoptysis with his last episode 1 month ago, current sputum production is clear. His living situation he lives in dorm style living will with other residents. Denies fevers, chills, diaphoresis, nausea, vomiting , diarrhea, constipation. He still feels very shaky and some of his responses are not completely coherent. Objective PUL Vital signs: Last Vital Signs Temp 97.6 F 07/04/16 07:48 Pulse 72 07/04/16 07:48 Resp 18 07/04/16 07:48 BP 111/71 07/04/16 07:48 Pulse Ox 94 07/04/16 09:35 General appearance: no acute distress, alert, lethargic Eyes: nonicteric ENT: oropharynx moist Neck: supple Effort: normal Auscultation: bilateral: rhonchi (Diffuse rhonchi with mild wheezing) Cardiovascular: regular rate and rhythm Gastrointestinal: normoactive bowel sounds, soft, non-tender, non-distended Integumentary: erythema (Bilateral lower extremities.) Extremities: no cyanosis, no edema, no clubbing, pink and warm Musculoskeletal: no deformities non-focal exam, pupils equal and round mood appropriate, affect normal Results - Laboratory Findings CBC and BMP: 07/04/16 03:43 07/04/16 03:43 Abnormal lab findings: Abnormal lab results RDW 18.6 % (11.5-14.5) H 07/04/16 03:43 Plt Count 83 K/mcL (140-400) L 07/04/16 03:43 Platelet Estimate Decreased (Normal) L 07/04/16 03:43 Large Platelets Present (Not Present) A 07/04/16 03:43 Polychromasia 1+ (Not Present) A 07/04/16 03:43 Anisocytosis 1+ (Not Present) A 07/04/16 03:43 Macrocytosis Present (Not Present) A 07/04/16 03:43 Sodium 133 mEq/L (136-145) L 07/04/16 03:43 Chloride 94 mEq/L (98-109) L 07/04/16 03:43 Calculated Osmolality 275 (280-300) L 07/04/16 03:43 Magnesium 2.8 mg/dL (1.6-2.6) H 07/04/16 03:43 AST 57 Units/L (5-34) H 07/04/16 03:43 Albumin 2.7 g/dL (3.5-5.0) L 07/04/16 03:43 Globulin 4.0 g/dL (2.4-3.5) H 07/04/16 03:43 Albumin/Globulin Ratio 0.7 (1.1-2.2) L 07/04/16 03:43 Pleural RBC 0.004 M/mcL (0.000-0.002) H 07/01/16 10:15 - Microbiology Findings Microbiology Findings: Microbiology, Last 48 Hours 07/01/16 10:15 Body Fluid Culture - Preliminary Pleural Fluid 07/01/16 10:15 Acid Fast Stain - Final Pleural Fluid - Clinical Findings Intake & Output: Intake & Output 07/03/16 07/04/16 07/04/16 23:59 07:59 15:59 Intake Total 450 / 450 100 / 100 0 / 0 Output Total 0 / 0 Balance 450 / 450 100 / 100 0 / 0 Weight 103.4 kg Consult Discharge Plan - Plan Referrals: Tootie Montano CNP [Primary Care Provider] - 07/07/16 11:00 am (Please follow up as schedule..) <Erlin Melgoza - Last Filed: 07/04/16 16:34> Date of Encounter: 07/04/16 Objective PUL Vital signs: Last Vital Signs Temp 97.8 F 07/04/16 16:09 Pulse 80 07/04/16 16:09 Resp 16 07/04/16 16:09 BP 103/62 07/04/16 16:09 Pulse Ox 96 07/04/16 16:09 Results - Laboratory Findings CBC and BMP: 07/04/16 03:43 07/04/16 03:43 Abnormal lab findings: Abnormal lab results RDW 18.6 % (11.5-14.5) H 07/04/16 03:43 Plt Count 83 K/mcL (140-400) L 07/04/16 03:43 Platelet Estimate Decreased (Normal) L 07/04/16 03:43 Large Platelets Present (Not Present) A 07/04/16 03:43 Polychromasia 1+ (Not Present) A 07/04/16 03:43 Anisocytosis 1+ (Not Present) A 07/04/16 03:43 Macrocytosis Present (Not Present) A 07/04/16 03:43 Sodium 133 mEq/L (136-145) L 07/04/16 03:43 Chloride 94 mEq/L (98-109) L 07/04/16 03:43 Calculated Osmolality 275 (280-300) L 07/04/16 03:43 Magnesium 2.8 mg/dL (1.6-2.6) H 07/04/16 03:43 AST 57 Units/L (5-34) H 07/04/16 03:43 Albumin 2.7 g/dL (3.5-5.0) L 07/04/16 03:43 Globulin 4.0 g/dL (2.4-3.5) H 07/04/16 03:43 Albumin/Globulin Ratio 0.7 (1.1-2.2) L 07/04/16 03:43 Pleural RBC 0.004 M/mcL (0.000-0.002) H 07/01/16 10:15 Vancomycin Trough 26.1 mcg/mL (10-20) H* 07/04/16 14:47 - Microbiology Findings Microbiology Findings: Microbiology, Last 48 Hours 07/01/16 10:15 Body Fluid Culture - Preliminary Pleural Fluid 07/01/16 10:15 Acid Fast Stain - Final Pleural Fluid - Clinical Findings Intake & Output: Intake & Output 07/04/16 07/04/16 07/04/16 07:59 15:59 23:59 Intake Total 100 / 100 0 / 0 Output Total 0 / 0 Balance 100 / 100 0 / 0 Weight 103.4 kg - Attending Attestation I examined this patient and my medical decision-making was reviewed with the FEED PROJECT ENGINEER/PA/Advanced Practice Nurse/Resident Physician. I agree with the documented findings, disposition and treatment plan as described except to the extent set forth below. 60-year-old alcoholic with history of cirrhosis presenting with leukocytosis and pleural effusion. Suspect aspiration pneumonia Pleural fluid analysis thus far consistent with an exudative lymphocytic predominant process cytology pending from this perspective would also add on ADA to other pleural fluid studies that have ordered been collected Agree with treatment for aspiration pneumonia and would have formal speech and swallow evaluation if this has not been performed - when I saw the patient the was very somnolent and did not appear to be safe to have an a full tray of food at his bedside Defer management of ongoing cirrhosis to the primary medicine service We will continue to follow
[2016-07-04] MEDS: metroNIDAZOLE 500 MG TABLET PO SCH ×2 (10:33→16:28)
[2016-07-04] MEDS: *HR* LORazepam 2 MG/ML VIAL IVP PRN (10:33)
[2016-07-04] MEDS ORDERED: Albuterol 2.5 MG/3 ML NEBULIZER IH PRN (11:30)
[2016-07-04] MEDS ORDERED: metroNIDAZOLE 500 MG TABLET PO SCH (16:00)
[2016-07-04] MEDS: Ipratropium/Albuterol Neb 3 ML IH SCH ×2 (16:13→22:20)
--- NOTE | 2016-07-04 18:07 | Internal Med Progress Note ---
Date of Encounter: 07/04/16 Time of Encounter: 11:00 - Assessment and plan (1) Pleural effusion, right Current Visit: Yes Status: Acute Assessment and plan: s/p thoracentesis, fluid consistent with exudate, ct obtained , which revealed a residual pneumothroax, pulmonology consulted in light of exudate fluid, will follow recommendations and follow pleural fluid results. broad differential including parapneumonic vs tb or even malignancy. ada requested. continue monitoring. fluid restriction. lasix and aldactone stopped since fluid was not transudate and not significant ascites. (2) Alcoholic liver disease Current Visit: Yes Status: Chronic Assessment and plan: chronic alcohol intake. risk for DT. DT prophlyaixs. librium started, will taper down dose. monitor lfts. (3) Essential hypertension Current Visit: Yes Status: Chronic (4) Pneumonia Current Visit: No Status: Suspected Assessment and plan: allergic to penicilins, risk of aspiration, xray and ct consistent with pneumonia, continue with rocephin, and flagyl por possible aspiration pneumonia since he was receving keflex as outpatient without reactions. will d//c vancomycin. speech and swallow eval. Qualifiers: Pneumonia type: aspiration pneumonia Aspiration pneumonia type: unspecified Laterality: right Lung location: lower lobe of lung Qualified Code(s): J69.0 - Pneumonitis due to inhalation of food and vomit (5) Cellulitis Current Visit: Yes Status: Acute Assessment and plan: looks more like chronic venous stasis. Qualifiers: Site of cellulitis: extremity Site of cellulitis of extremity: lower extremity Laterality: unspecified laterality Qualified Code(s): L03.119 - Cellulitis of unspecified part of limb (6) Hypomagnesemia Current Visit: Yes Status: Acute Assessment and plan: overcorrected, will continue monitoring. - Subjective Interval history: seen and examined had ativan and was under effect of medication during this encounter. chronic active smoker. drinks beer daily, last drink 4 days ago. - Constitutional Vitals: Temp Pulse Resp BP Pulse Ox 97.8 F 80 16 103/62 96 07/04/16 16:09 07/04/16 16:09 07/04/16 16:13 07/04/16 16:09 07/04/16 16:13 General appearance: Present: A&O X 1, mild distress, answers questions appropriately - Head Head exam: Present: atraumatic, normocephalic - Eye Eye exam: Present: PERRL, conjuntiva pink, sclera anicteric Pupils: Present: PERRL - Neck Neck exam general surgery: Present: supple, trachea midline. Absent: lymphadenopathy - Respiratory Respiratory exam: Present: CTAB. Absent: accessory muscle use, rales, rhonchi, wheezes - Cardiovascular Cardiovascular exam: Present: RRR, +S1, +S2. Absent: diastolic murmur, gallop, rubs, systolic murmur - GI/Abdominal GI/Abdominal exam: Present: normal bowel sounds, soft, no peritoneal signs. Absent: distended, tenderness - Extremities Exam Extremities exam: Present: warm, radial pulses palpable and symetrical. Absent : calf tenderness, cyanotic, pedal edema - Neurological Exam Neurological exam: Present: CN II-XII intact, oriented X3, no focal deficits. Absent: pronater drift, facial droop, speech deficit - Skin Skin exam: Present: dry, intact Internal Medicine: Result - Labs CBC & Chem 7: 07/04/16 03:43 07/04/16 03:43 Labs: Short CBC 07/04/16 Range/Units 03:43 WBC 5.5 (4.3-11.1) K/mcL Hgb 13.7 (12.9-16.9) g/dL Hct 42.6 (37.5-50.1) % Plt Count 83 L (140-400) K/mcL Neutrophils # 3.2 (1.6-8.9) K/mcL BMP 07/04/16 03:43 Sodium 133 L Potassium 4.2 Chloride 94 L Carbon Dioxide 29 BUN 12 Creatinine 1.04 Glucose 79 Calcium 8.9 Liver Function 07/04/16 Range/Units 03:43 Total Bilirubin 1.0 (0.2-1.2) mg/dL Direct Bilirubin 0.3 (0.0-0.5) mg/dL AST 57 H (5-34) Units/L ALT 44 (0-55) Units/L Alkaline Phosphatase 110 (38-126) Units/L Albumin 2.7 L (3.5-5.0) g/dL Consult Discharge Plan - Plan Referrals: Tootie Montano CNP [Primary Care Provider] - 07/07/16 11:00 am (Please follow up as schedule..)
[2016-07-05] MEDS: metroNIDAZOLE 500 MG TABLET PO SCH ×3 (00:58→16:42)
[2016-07-05] MEDS: Ipratropium/Albuterol Neb 3 ML IH SCH ×4 (04:03→20:51)
[2016-07-05 05:26] LABS: Basophils % 0.5 %; Eosinophils # 0.3 K/mcL (0.0-0.6); Eosinophils % 3.8 %; Hematocrit 42.3 % (37.5-50.1); Hemoglobin 13.4 g/dL (12.9-16.9); Immature Granulocytes % 0.7 % (0-4); Lymphocytes % 13.2 %; Mean Corpuscular HGB Conc 31.7 g/dL (31.6-35.5); Mean Corpuscular Hemoglobin 29.8 pg (28.0-33.3); Mean Corpuscular Volume 94.2 fL (83.0-100.0); Mean Platelet Volume 9.7 fL (9.4-12.4); Monocytes % 12.6 %; Neutrophils # 5.3 K/mcL (1.6-8.9); Platelet Count 120 K/mcL (140-400); Red Blood Count 4.49 M/mcL (4.19-5.50); Red Cell Distribution Width 19.2 % (11.5-14.5); Segmented Neutrophils % 69.2 %
[2016-07-05 05:39] LABS: Calcium 9.3 mg/dL (8.6-10.8); Potassium 3.7 mEq/L (3.5-4.5)
[2016-07-05 05:42] LABS: Albumin 2.8 g/dL (3.5-5.0); Albumin/Globulin Ratio 0.7 (1.1-2.2); Bilirubin,Direct 0.5 mg/dL (0.0-0.5); Bilirubin,Indirect 0.4 mg/dL (0.0-1.2); Bilirubin,Total 0.9 mg/dL (0.2-1.2); Globulin 3.9 g/dL (2.4-3.5); Total Protein 6.7 g/dL (6.0-8.3)
[2016-07-05] MEDS: *HR* Enoxaparin 40 MG/0.4 ML SYRINGE SQ SCH (05:57)
[2016-07-05] MEDS: Gabapentin 400 MG CAPSULE PO SCH ×3 (05:57→17:04)
--- NOTE | 2016-07-05 07:07 | Pulmonology Progress Note ---
Date of Encounter: 07/05/16 Time of Encounter: 07:07 Assessment and Plan (1) Pleural effusion, right Current Visit: Yes Status: Acute 60-year-old gentleman with alcoholic cirrhosis who is presenting with evidence of aspiration pneumonia along with right-sided effusion. Preliminary results are consistent with lymphocytic exudative process of unclear etiology final cytology is pending Agree with continued treatment for pneumonia covering for aspiration organisms at this point given hiving trough and low suspicion for MRSA is reasonable to stop this (along with compromised kidney function) treatment can range from 7- 10 days based upon clinical course Coronary remains encephalopathic likely some degree of alcohol withdrawal and use of benzodiazepine the primary medicine service continues to monitor this each time I have evaluated him I do not feel that he is safe to eat unattended and high aspiration risk If further analysis of cytology is unremarkable would likely need to repeat thoracentesis after treatment of pneumonia and possible repeating CT scan on a non-urgent basis i.e. clinic f/u (2) Alcoholic Current Visit: Yes Status: Acute (3) Pneumonia Current Visit: No Status: Suspected Qualifiers: Pneumonia type: aspiration pneumonia Aspiration pneumonia type: due to regurgitated food Laterality: right Lung location: lower lobe of lung Qualified Code(s): J69.0 - Pneumonitis due to inhalation of food and vomit Subjective Principal diagnosis: pleural effusion Interval history: Seen at bedside he is though still very confused and somnolent and unable to participate in conversation with me Per nursing staff and medical record does not appear to have any acute changes overnight Objective PUL Vital signs: Last Vital Signs Temp 98.3 F 07/05/16 03:57 Pulse 83 07/05/16 03:57 Resp 18 07/05/16 04:05 BP 96/58 07/05/16 03:57 Pulse Ox 90 07/05/16 04:05 General appearance: lethargic ENT: oropharynx dry Auscultation: right: diminished breath sounds, bilateral: wheezes (Faint expiratory wheezes) Cardiovascular: regular rate and rhythm Gastrointestinal: normoactive bowel sounds, non-tender Extremities: edema Results - Laboratory Findings CBC and BMP: 07/05/16 04:57 07/05/16 04:57 Abnormal lab findings: Abnormal lab results RDW 19.2 % (11.5-14.5) H 07/05/16 04:57 Plt Count 120 K/mcL (140-400) L 07/05/16 04:57 Platelet Estimate Decreased (Normal) L 07/04/16 03:43 Large Platelets Present (Not Present) A 07/04/16 03:43 Polychromasia 1+ (Not Present) A 07/04/16 03:43 Anisocytosis 1+ (Not Present) A 07/04/16 03:43 Macrocytosis Present (Not Present) A 07/04/16 03:43 Chloride 93 mEq/L (98-109) L 07/05/16 04:57 Carbon Dioxide 33 mEq/L (19-29) H 07/05/16 04:57 Creatinine 1.76 mg/dL (0.72-1.25) H D 07/05/16 04:57 Est GFR ( Amer) 48 (> 60) L 07/05/16 04:57 Est GFR (Non-Af Amer) 40 (> 60) L 07/05/16 04:57 Glucose 100 mg/dL (70-99) H 07/05/16 04:57 AST 49 Units/L (5-34) H 07/05/16 04:57 Albumin 2.8 g/dL (3.5-5.0) L 07/05/16 04:57 Globulin 3.9 g/dL (2.4-3.5) H 07/05/16 04:57 Albumin/Globulin Ratio 0.7 (1.1-2.2) L 07/05/16 04:57 Pleural RBC 0.004 M/mcL (0.000-0.002) H 07/01/16 10:15 Vancomycin Trough 26.1 mcg/mL (10-20) H* 07/04/16 14:47 - Microbiology Findings Microbiology Findings: Microbiology, Last 48 Hours 07/01/16 10:15 Body Fluid Culture - Preliminary Pleural Fluid 07/01/16 10:15 Acid Fast Stain - Final Pleural Fluid - Clinical Findings Intake & Output: Intake & Output 07/04/16 07/04/16 07/05/16 15:59 23:59 07:59 Intake Total 0 / 0 240 / 240 Output Total 0 / 0 Balance 0 / 0 240 / 240 Weight 102.3 kg Consult Discharge Plan - Plan Referrals: Tootie Montano, WELDING MACHINE OPERATOR [employer] [Primary Care Provider] - 07/07/16 11:00 am (Please follow up as schedule..)
[2016-07-05] MEDS ORDERED: 0.9 % Sodium Chloride 1,000 ML IVC ONE (08:45)
[2016-07-05] MEDS: Lactobacillus 1 EACH CAP.SPRINK PO SCH ×2 (08:58→20:42)
[2016-07-05] MEDS: Thiamine (B-1) 100 MG TABLET PO SCH (08:58)
[2016-07-05] MEDS: Vitamin B Complex/Vit C/Vit E 1 EACH TABLET PO SCH (08:58)
[2016-07-05] MEDS: Folic Acid 1 MG TABLET PO SCH (08:58)
[2016-07-05] MEDS: 0.9 % Sodium Chloride 1,000 ML IVC SCH ×2 (09:35→11:27)
--- NOTE | 2016-07-05 10:07 | Internal Med Progress Note ---
Date of Encounter: 07/05/16 Time of Encounter: 10:04 - Assessment and plan (1) Pleural effusion, right Current Visit: Yes Status: Acute Assessment and plan: s/p thoracentesis, fluid consistent with exudate, ct obtained , which also revealed effusion, infiltrates and a residual pneumothroax, pulmonology consulted in light of exudate fluid. broad differential including parapneumonic vs tb or even malignancy. ada requested. continue monitoring. (2) Alcoholic liver disease Current Visit: Yes Status: Chronic Assessment and plan: chronic alcohol intake. drowsy and with tremors. ciwa score 8 during this encounter, will continue librium. DT prophlyaixs. monitor lfts. (3) Essential hypertension Current Visit: Yes Status: Chronic (4) Pneumonia Current Visit: No Status: Suspected Assessment and plan: allergic to penicilins, risk of aspiration, xray and ct consistent with pneumonia, continue with rocephin, and flagyl por possible aspiration pneumonia since he was receving keflex as outpatient without reactions. vancomycin was stopped yesterday. speech and swallow eval noted, diet modified accordinly. . Qualifiers: Pneumonia type: aspiration pneumonia Aspiration pneumonia type: due to regurgitated food Laterality: right Lung location: lower lobe of lung Qualified Code(s): J69.0 - Pneumonitis due to inhalation of food and vomit (5) Cellulitis Current Visit: Yes Status: Acute Assessment and plan: looks more like chronic venous stasis. not on antibiotics. Qualifiers: Site of cellulitis: extremity Site of cellulitis of extremity: lower extremity Laterality: unspecified laterality Qualified Code(s): L03.119 - Cellulitis of unspecified part of limb (6) Hypomagnesemia Current Visit: Yes Status: Acute Assessment and plan: wnl today, will continue monitoring. (7) Acute kidney injury Current Visit: Yes Status: Acute Assessment and plan: possible induced by vancomycin plus poor oral intake, vancomycin levels were high yesterday and vanc was stopped yesterday. will give iv fluids today and stop adilene inhibitors. (8) Generalized weakness Current Visit: Yes Status: Acute Assessment and plan: generalized weakness in setting of chronic alcohol intake and poor nutrition status, drowsiness, will decrease dose of gabapentin. avoid opiates. - Subjective Interval history: seen and examined has not had ativn in the last 24 hours, still drowsy and bilateral tremors in upper extremities. chronic active smoker. drinks beer daily, just prior to arrival. - Constitutional Vitals: Temp Pulse Resp BP Pulse Ox 98.2 F 72 18 91/59 97 07/05/16 07:00 07/05/16 07:00 07/05/16 07:00 07/05/16 07:00 07/05/16 07:00 General appearance: Present: A&O X 1, mild distress, answers questions appropriately Exam: tremors, not oriented in time, partially oriented in place, drowsy, answers questions. - Head Head exam: Present: atraumatic, normocephalic - Eye Eye exam: Present: PERRL, conjuntiva pink, sclera anicteric Pupils: Present: PERRL - Neck Neck exam general surgery: Present: supple, trachea midline. Absent: lymphadenopathy - Respiratory Respiratory exam: Present: decreased breath sounds. Absent: accessory muscle use, rales, rhonchi, wheezes - Cardiovascular Cardiovascular exam: Present: RRR, +S1, +S2. Absent: diastolic murmur, gallop, rubs, systolic murmur - GI/Abdominal GI/Abdominal exam: Present: normal bowel sounds, soft, no peritoneal signs. Absent: distended, tenderness - Extremities Exam Extremities exam: Present: warm, radial pulses palpable and symetrical. Absent : calf tenderness, cyanotic, pedal edema - Neurological Exam Neurological exam: Present: CN II-XII intact, oriented X3, no focal deficits. Absent: pronater drift, facial droop, speech deficit - Skin Skin exam: Present: dry, intact Internal Medicine: Result - Labs CBC & Chem 7: 07/05/16 04:57 07/05/16 04:57 Labs: Short CBC 07/05/16 Range/Units 04:57 WBC 7.6 (4.3-11.1) K/mcL Hgb 13.4 (12.9-16.9) g/dL Hct 42.3 (37.5-50.1) % Plt Count 120 L (140-400) K/mcL Neutrophils # 5.3 (1.6-8.9) K/mcL BMP 07/05/16 04:57 Sodium 136 Potassium 3.7 Chloride 93 L Carbon Dioxide 33 H BUN 18 Creatinine 1.76 H D Glucose 100 H Calcium 9.3 Liver Function 07/05/16 Range/Units 04:57 Total Bilirubin 0.9 (0.2-1.2) mg/dL Direct Bilirubin 0.5 (0.0-0.5) mg/dL AST 49 H (5-34) Units/L ALT 40 (0-55) Units/L Alkaline Phosphatase 117 (38-126) Units/L Albumin 2.8 L (3.5-5.0) g/dL Consult Discharge Plan - Plan Referrals: Tootie Montano, DEBBIE [Primary Care Provider] - 07/07/16 11:00 am (Please follow up as schedule..)
[2016-07-05] MEDS: *HR* LORazepam 2 MG/ML VIAL IVP PRN (16:02)
[2016-07-06] MEDS: 0.9 % Sodium Chloride 1,000 ML IVC SCH ×2 (00:57→13:36)
[2016-07-06] MEDS: metroNIDAZOLE 500 MG TABLET PO SCH ×3 (00:58→17:05)
[2016-07-06] MEDS: Gabapentin 400 MG CAPSULE PO SCH ×5 (00:58→23:14)
[2016-07-06] MEDS: Ipratropium/Albuterol Neb 3 ML IH SCH ×4 (04:00→21:32)
[2016-07-06 04:46] LABS: Basophils % 0.4 %; Eosinophils # 0.3 K/mcL (0.0-0.6); Eosinophils % 5.4 %; Hemoglobin 11.9 g/dL (12.9-16.9); Immature Granulocytes % 0.6 % (0-4); Lymphocytes # 0.8 K/mcL (0.6-4.6); Mean Corpuscular HGB Conc 31.3 g/dL (31.6-35.5); Mean Corpuscular Hemoglobin 29.3 pg (28.0-33.3); Mean Corpuscular Volume 93.6 fL (83.0-100.0); Monocytes # 0.9 K/mcL (0.0-1.3); Monocytes % 16.8 %; Neutrophils # 3.3 K/mcL (1.6-8.9); Platelet Count 122 K/mcL (140-400); Red Blood Count 4.06 M/mcL (4.19-5.50); Red Cell Distribution Width 18.8 % (11.5-14.5); Segmented Neutrophils % 61.8 %
[2016-07-06 04:59] LABS: Alanine Aminotransferase 29 Units/L (0-55); Albumin 2.5 g/dL (3.5-5.0); Albumin/Globulin Ratio 0.8 (1.1-2.2); Alkaline Phosphatase 93 Units/L (38-126); Aspartate Amino Transferase 27 Units/L (5-34); BUN/Creatinine Ratio 13 (6-26); Bilirubin,Direct 0.4 mg/dL (0.0-0.5); Bilirubin,Indirect 0.2 mg/dL (0.0-1.2); Bilirubin,Total 0.6 mg/dL (0.2-1.2); Blood Urea Nitrogen 18 mg/dL (8-26); Calcium 8.8 mg/dL (8.6-10.8); Carbon Dioxide 35 mEq/L (19-29); Chloride 99 mEq/L (98-109); Globulin 3.3 g/dL (2.4-3.5); Glucose 100 mg/dL (70-99); Magnesium 1.6 mg/dL (1.6-2.6); Osmolality,Calculated 292 (280-300); Potassium 3.5 mEq/L (3.5-4.5); Sodium 140 mEq/L (136-145); Total Protein 5.8 g/dL (6.0-8.3); eGFR For African Americans > 60 (> 60); eGFR For Non-African Americans 53 (> 60)
[2016-07-06 05:33] LABS: Folate 13.1 ng/mL (7.0-31.4)
[2016-07-06] MEDS: *HR* Enoxaparin 40 MG/0.4 ML SYRINGE SQ SCH (06:15)
[2016-07-06] MEDS: Folic Acid 1 MG TABLET PO SCH (07:49)
[2016-07-06] MEDS: Vitamin B Complex/Vit C/Vit E 1 EACH TABLET PO SCH (07:49)
[2016-07-06] MEDS: Thiamine (B-1) 100 MG TABLET PO SCH (07:49)
[2016-07-06] MEDS: Lactobacillus 1 EACH CAP.SPRINK PO SCH ×2 (07:49→21:55)
--- NOTE | 2016-07-06 08:35 | Pulmonology Progress Note ---
<Biran Camacho - Last Filed: 07/06/16 09:21> Date of Encounter: 07/06/16 Time of Encounter: 08:32 Assessment and Plan (1) Pleural effusion, right Current Visit: Yes Status: Acute Thoracentesis performed on a right-sided pleural effusion correlate with an exudative process. Patient has risk factors of chronic alcoholism and risk of aspiration, close living quarters, history of hemoptysis. Lites criteria: LDH (0.68) greater than 0.60, protein ratio (0.57) greater than 0.50, pleural cholesterol is 49, pleural pH is 7.50: Correlates with an exudative pleural effusion - Pleural fluid cytology demonstrates reactive mesothelial cells, lymphocytes and macrophages. - Acid-fast stain of pleural fluid was negative for acid-fast bacilli. - Adenosine deaminase of the pleural fluid has been ordered, received and results are still pending. - Suspects infectious process, patient is high risk for aspiration pneumonia with chronic alcoholism, speech therapy has had difficulty evaluating as he is not been cooperative with his current mental status. DDx: Infectious bacterial pneumonia with empyema, parapneumonic effusion, less likely malignancy - Patient's antibiotic coverage includes Flagyl and ceftriaxone. (2) Pneumonia Current Visit: No Status: Suspected Patient is a high-risk for aspiration pneumonia with his chronic alcoholism. With his right-sided pleural effusion and consolidation this is suspicious for aspiration pneumonia. - Final pleural fluid culture has no bacterial growth. - Continue on ceftriaxone and Flagyl (day 6) Qualifiers: Pneumonia type: aspiration pneumonia Aspiration pneumonia type: due to regurgitated food Laterality: right Lung location: lower lobe of lung Qualified Code(s): J69.0 - Pneumonitis due to inhalation of food and vomit (3) Alcoholic liver disease Current Visit: Yes Status: Chronic Patient is a known alcoholic who drinks roughly 30 beers per day. - Patient has been without alcohol since admission on 07/01/2016 - Folate 13.1, vitamin B12 417 Subjective Principal diagnosis: pleural effusion Interval history: Mr. Ackerman 60-year-old male is seen and evaluated the patient bedside this morning. He is lethargic and hard to arouse. When awoken for a brief moment he will mumble incoherent responses. He does not follow commands appropriately. Objective PUL Vital signs: Last Vital Signs Temp 97.6 F 07/06/16 07:21 Pulse 83 07/06/16 07:21 Resp 16 07/06/16 07:21 BP 117/74 07/06/16 07:21 Pulse Ox 96 07/06/16 07:21 General appearance: no acute distress, lethargic, other (Hard to arouse) Eyes: nonicteric ENT: oropharynx moist Neck: supple Auscultation: bilateral: rhonchi (Right middle and lower lung [place]) Cardiovascular: regular rate and rhythm Gastrointestinal: normoactive bowel sounds, soft, non-tender, non-distended Integumentary: normal Extremities: no cyanosis, no clubbing, pink and warm Musculoskeletal: no deformities pupils equal and round Results - Laboratory Findings CBC and BMP: 07/06/16 04:30 07/06/16 04:30 Abnormal lab findings: Abnormal lab results RBC 4.06 M/mcL (4.19-5.50) L 07/06/16 04:30 Hgb 11.9 g/dL (12.9-16.9) L D 07/06/16 04:30 MCHC 31.3 g/dL (31.6-35.5) L 07/06/16 04:30 RDW 18.8 % (11.5-14.5) H 07/06/16 04:30 Plt Count 122 K/mcL (140-400) L 07/06/16 04:30 MPV 9.0 fL (9.4-12.4) L 07/06/16 04:30 Platelet Estimate Decreased (Normal) L 07/04/16 03:43 Large Platelets Present (Not Present) A 07/04/16 03:43 Polychromasia 1+ (Not Present) A 07/04/16 03:43 Anisocytosis 1+ (Not Present) A 07/04/16 03:43 Macrocytosis Present (Not Present) A 07/04/16 03:43 Carbon Dioxide 35 mEq/L (19-29) H 07/06/16 04:30 Creatinine 1.38 mg/dL (0.72-1.25) H 07/06/16 04:30 Est GFR (Non-Af Amer) 53 (> 60) L 07/06/16 04:30 Glucose 100 mg/dL (70-99) H 07/06/16 04:30 Serum Total Protein 5.8 g/dL (6.0-8.3) L 07/06/16 04:30 Albumin 2.5 g/dL (3.5-5.0) L 07/06/16 04:30 Albumin/Globulin Ratio 0.8 (1.1-2.2) L 07/06/16 04:30 Pleural RBC 0.004 M/mcL (0.000-0.002) H 07/01/16 10:15 Vancomycin Trough 26.1 mcg/mL (10-20) H* 07/04/16 14:47 - Microbiology Findings Microbiology Findings: Microbiology, Last 48 Hours 07/01/16 10:15 Body Fluid Culture - Final Pleural Fluid - Clinical Findings Intake & Output: Intake & Output 07/05/16 07/06/16 07/06/16 23:59 07:59 15:59 Intake Total 1100 / 1100 Output Total 250 / 250 Balance 1100 / 1100 -250 / -250 Weight 101.7 kg Consult Discharge Plan - Plan Referrals: Tootie Montano [facility] SPECIALIST [Primary Care Provider] - 07/07/16 11:00 am (Please follow up as schedule..) <Erlin Melgoza - Last Filed: 07/06/16 15:57> Date of Encounter: 07/06/16 Assessment and Plan (1) Pleural effusion, right Current Visit: Yes Status: Acute (2) Alcoholic Current Visit: Yes Status: Acute (3) Pneumonia Current Visit: No Status: Suspected Qualifiers: Pneumonia type: aspiration pneumonia Aspiration pneumonia type: due to regurgitated food Laterality: right Lung location: lower lobe of lung Qualified Code(s): J69.0 - Pneumonitis due to inhalation of food and vomit Objective PUL Vital signs: Last Vital Signs Temp 97.8 F 07/06/16 12:01 Pulse 83 07/06/16 12:01 Resp 18 07/06/16 12:01 BP 127/76 07/06/16 12:01 Pulse Ox 86 07/06/16 12:01 Results - Laboratory Findings CBC and BMP: 07/06/16 04:30 07/06/16 04:30 Abnormal lab findings: Abnormal lab results RBC 4.06 M/mcL (4.19-5.50) L 07/06/16 04:30 Hgb 11.9 g/dL (12.9-16.9) L D 07/06/16 04:30 MCHC 31.3 g/dL (31.6-35.5) L 07/06/16 04:30 RDW 18.8 % (11.5-14.5) H 07/06/16 04:30 Plt Count 122 K/mcL (140-400) L 07/06/16 04:30 MPV 9.0 fL (9.4-12.4) L 07/06/16 04:30 Platelet Estimate Decreased (Normal) L 07/04/16 03:43 Large Platelets Present (Not Present) A 07/04/16 03:43 Polychromasia 1+ (Not Present) A 07/04/16 03:43 Anisocytosis 1+ (Not Present) A 07/04/16 03:43 Macrocytosis Present (Not Present) A 07/04/16 03:43 Carbon Dioxide 35 mEq/L (19-29) H 07/06/16 04:30 Creatinine 1.38 mg/dL (0.72-1.25) H 07/06/16 04:30 Est GFR (Non-Af Amer) 53 (> 60) L 07/06/16 04:30 Glucose 100 mg/dL (70-99) H 07/06/16 04:30 Serum Total Protein 5.8 g/dL (6.0-8.3) L 07/06/16 04:30 Albumin 2.5 g/dL (3.5-5.0) L 07/06/16 04:30 Albumin/Globulin Ratio 0.8 (1.1-2.2) L 07/06/16 04:30 Pleural RBC 0.004 M/mcL (0.000-0.002) H 07/01/16 10:15 Vancomycin Trough 26.1 mcg/mL (10-20) H* 07/04/16 14:47 - Microbiology Findings Microbiology Findings: Microbiology, Last 48 Hours 07/01/16 10:15 Body Fluid Culture - Final Pleural Fluid - Clinical Findings Intake & Output: Intake & Output 07/05/16 07/06/16 07/06/16 23:59 07:59 15:59 Intake Total 1100 / 1100 1000 / 1000 Output Total 250 / 250 Balance 1100 / 1100 -250 / -250 1000 / 1000 Weight 101.7 kg - Attending Attestation I examined this patient and my medical decision-making was reviewed with the CLINICAL LAB ASSISTANT/PA/Advanced Practice Nurse/Resident Physician. I agree with the documented findings, disposition and treatment plan as described except to the extent set forth below. Lymphocytic predominant exudative effusion cytology negative for malignancy. Given that etiology of effusion remains unclear at this time would recommend repeat [diagnostic] thoracentesis and mental status is improved. Given size of effusion body habitus and ongoing issues with confusion I believe this procedure is most safely accomplished on a nonurgent basis via ct guided aspiration with interventional radiology. The pleural fluid can then be processed for repeat analysis including basic chemistries, ADA, and cytology ( as outlined in previous notes). Would treat for with antimicrobials for aspiration pneumonia for 7 days.
[2016-07-06] MEDS: Magnesium Oxide 400 MG TABLET PO SCH ×2 (10:25→21:55)
--- NOTE | 2016-07-06 17:26 | Internal Med Progress Note ---
Date of Encounter: 07/06/16 Time of Encounter: 11:40 - Assessment and plan (1) Pleural effusion, right Current Visit: Yes Status: Acute Assessment and plan: s/p thoracentesis, fluid consistent with exudate, ct obtained , which also revealed effusion, infiltrates and a residual pneumothroax, pulmonology consulted in light of exudate fluid. broad differential including parapneumonic vs tb or even malignancy. ada requested. continue monitoring. continnue antibiotc for aspiration pna. follow ada. (2) Alcoholic liver disease Current Visit: Yes Status: Chronic (3) Essential hypertension Current Visit: Yes Status: Chronic (4) Pneumonia Current Visit: No Status: Suspected Assessment and plan: allergic to penicilins, risk of aspiration, xray and ct consistent with pneumonia, continue with rocephin, and flagyl por possible aspiration pneumonia since he was receving keflex as outpatient without reactions. vancomycin was stopped 2 days ago. speech and swallow eval noted, diet modified accordinly. . Qualifiers: Pneumonia type: aspiration pneumonia Aspiration pneumonia type: due to regurgitated food Laterality: right Lung location: lower lobe of lung Qualified Code(s): J69.0 - Pneumonitis due to inhalation of food and vomit (5) Cellulitis Current Visit: Yes Status: Acute Qualifiers: Site of cellulitis: extremity Site of cellulitis of extremity: lower extremity Laterality: unspecified laterality Qualified Code(s): L03.119 - Cellulitis of unspecified part of limb (6) Hypomagnesemia Current Visit: Yes Status: Acute Assessment and plan: wnl today, will continue monitoring. (7) Acute kidney injury Current Visit: Yes Status: Acute Assessment and plan: possible induced by vancomycin plus poor oral intake, vancomycin levels were high and vanc was stopped. creat improving, will continue iv fluids today and avoid nephrotoxic agents, adilene inh were stopped. . (8) Generalized weakness Current Visit: Yes Status: Acute Assessment and plan: generalized weakness in setting of chronic alcohol intake and poor nutrition status, drowsiness, decreased dose of gabapentin. avoid opiates. - Subjective Interval history: seen and examined still drowsy at intervals, eats with assistance, bilateral tremors in upper extremities. chronic active smoker. drinks beer daily, just prior to arrival. - Constitutional Vitals: Temp Pulse Resp BP Pulse Ox 98 F 69 18 115/75 94 07/06/16 15:48 05/17/17 15:48 07/06/16 16:07 07/06/16 15:48 07/06/16 16:07 General appearance: Present: A&O X 1, mild distress, answers questions appropriately Exam: tremors. - Head Head exam: Present: atraumatic, normocephalic - Eye Eye exam: Present: PERRL, conjuntiva pink, sclera anicteric Pupils: Present: PERRL - Neck Neck exam general surgery: Present: supple, trachea midline. Absent: lymphadenopathy - Respiratory Respiratory exam: Present: decreased breath sounds. Absent: accessory muscle use, rales, rhonchi, wheezes - Cardiovascular Cardiovascular exam: Present: RRR, +S1, +S2. Absent: diastolic murmur, gallop, rubs, systolic murmur - GI/Abdominal GI/Abdominal exam: Present: normal bowel sounds, soft, no peritoneal signs. Absent: distended, tenderness - Extremities Exam Extremities exam: Present: warm, radial pulses palpable and symetrical. Absent : calf tenderness, cyanotic, pedal edema - Neurological Exam Neurological exam: Present: CN II-XII intact, oriented X3, no focal deficits. Absent: pronater drift, facial droop, speech deficit - Skin Skin exam: Present: dry, intact Internal Medicine: Result - Labs CBC & Chem 7: 07/06/16 04:30 07/06/16 04:30 Labs: Short CBC 07/06/16 Range/Units 04:30 WBC 5.4 (4.3-11.1) K/mcL Hgb 11.9 L D (12.9-16.9) g/dL Hct 38.0 (37.5-50.1) % Plt Count 122 L (140-400) K/mcL Neutrophils # 3.3 (1.6-8.9) K/mcL BMP 07/06/16 04:30 Sodium 140 Potassium 3.5 Chloride 99 Carbon Dioxide 35 H BUN 18 Creatinine 1.38 H Glucose 100 H Calcium 8.8 Liver Function 07/06/16 Range/Units 04:30 Total Bilirubin 0.6 (0.2-1.2) mg/dL Direct Bilirubin 0.4 (0.0-0.5) mg/dL AST 27 (5-34) Units/L ALT 29 (0-55) Units/L Alkaline Phosphatase 93 (38-126) Units/L Albumin 2.5 L (3.5-5.0) g/dL - Impressions Impressions Chest X-Ray 07/06/16 08:59 IMPRESSION: 1. Re- demonstration of moderate to large right pleural effusion which appears slightly decreased in size with improved aeration of the right upper lobe. D/ / Waldo Bonds MD / Waldo Bonds MD Interpreting Provider: Waldo Bonds MD Consult Discharge Plan - Plan Referrals: Tootie Montano [employer] [Primary Care Provider] - 07/07/16 11:00 am (Please follow up as schedule..)
[2016-07-06] MEDS ORDERED: Magnesium Sulfate 2 GM in D5% in Water 100 ML IVPB ONE (17:27)
[2016-07-06] MEDS: *HR* LORazepam 2 MG/ML VIAL IVP PRN (23:14)
[2016-07-07] MEDS: metroNIDAZOLE 500 MG TABLET PO SCH ×3 (01:25→16:34)
[2016-07-07] MEDS: Ipratropium/Albuterol Neb 3 ML IH SCH ×4 (03:50→21:19)
[2016-07-07 05:48] LABS: BUN/Creatinine Ratio 13 (6-26); Blood Urea Nitrogen 15 mg/dL (8-26); Carbon Dioxide 31 mEq/L (19-29); Chloride 103 mEq/L (98-109); Glucose 97 mg/dL (70-99); Osmolality,Calculated 295 (280-300); Potassium 3.5 mEq/L (3.5-4.5); Sodium 142 mEq/L (136-145); eGFR For African Americans > 60 (> 60); eGFR For Non-African Americans > 60 (> 60)
[2016-07-07 05:56] LABS: Basophils % 0.4 %; Eosinophils # 0.3 K/mcL (0.0-0.6); Eosinophils % 6.3 %; Hematocrit 36.7 % (37.5-50.1); Hemoglobin 11.6 g/dL (12.9-16.9); Immature Granulocytes % 0.4 % (0-4); Lymphocytes % 19.8 %; Mean Corpuscular HGB Conc 31.6 g/dL (31.6-35.5); Mean Corpuscular Hemoglobin 29.9 pg (28.0-33.3); Mean Corpuscular Volume 94.6 fL (83.0-100.0); Mean Platelet Volume 9.5 fL (9.4-12.4); Monocytes # 0.9 K/mcL (0.0-1.3); Neutrophils # 2.8 K/mcL (1.6-8.9); Platelet Count 147 K/mcL (140-400); Red Blood Count 3.88 M/mcL (4.19-5.50); Red Cell Distribution Width 19.3 % (11.5-14.5); Segmented Neutrophils % 56.1 %
[2016-07-07 06:31] LABS: Albumin 2.6 g/dL (3.5-5.0); Albumin/Globulin Ratio 0.8 (1.1-2.2); Bilirubin,Direct 0.3 mg/dL (0.0-0.5); Bilirubin,Indirect 0.2 mg/dL (0.0-1.2); Bilirubin,Total 0.5 mg/dL (0.2-1.2); Globulin 3.3 g/dL (2.4-3.5); Total Protein 5.9 g/dL (6.0-8.3)
[2016-07-07] MEDS: *HR* Enoxaparin 40 MG/0.4 ML SYRINGE SQ SCH (06:32)
[2016-07-07] MEDS: Gabapentin 400 MG CAPSULE PO SCH ×3 (06:40→21:04)
[2016-07-07] MEDS: Magnesium Oxide 400 MG TABLET PO SCH ×2 (08:28→21:04)
[2016-07-07] MEDS: Vitamin B Complex/Vit C/Vit E 1 EACH TABLET PO SCH (08:28)
[2016-07-07] MEDS: Lactobacillus 1 EACH CAP.SPRINK PO SCH ×2 (08:28→21:04)
[2016-07-07] MEDS: Folic Acid 1 MG TABLET PO SCH (08:28)
[2016-07-07] MEDS: Thiamine (B-1) 100 MG TABLET PO SCH (08:29)
--- NOTE | 2016-07-07 13:37 | Electrocardiograph Report ---
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
[2016-07-07] MEDS: 0.9 % Sodium Chloride 1,000 ML IVC SCH (16:37)
--- NOTE | 2016-07-07 17:27 | Internal Med Progress Note ---
Date of Encounter: 07/07/16 Time of Encounter: 12:30 - Assessment and plan (1) Pleural effusion, right Current Visit: Yes Status: Acute Assessment and plan: s/p thoracentesis, fluid consistent with exudate, ct obtained , which also revealed effusion, infiltrates and a residual pneumothroax, pulmonology consulted in light of exudate fluid. broad differential including parapneumonic vs tb or even malignancy. ada requested. continue monitoring. continnue antibiotc for aspiration pna. follow ada. (2) Alcoholic liver disease Current Visit: Yes Status: Chronic Assessment and plan: chronic alcohol intake. drowsy and with tremors. continue librium. DT prophlyaixs. monitor lfts. (3) Essential hypertension Current Visit: Yes Status: Chronic (4) Pneumonia Current Visit: No Status: Suspected Assessment and plan: allergic to penicilins, risk of aspiration, xray and ct consistent with pneumonia, continue with rocephin, and flagyl por possible aspiration pneumonia since he was receving keflex as outpatient without reactions. vancomycin was stopped. speech and swallow eval noted, diet modified accordingly. Qualifiers: Pneumonia type: aspiration pneumonia Aspiration pneumonia type: due to regurgitated food Laterality: right Lung location: lower lobe of lung Qualified Code(s): J69.0 - Pneumonitis due to inhalation of food and vomit (5) Cellulitis Current Visit: Yes Status: Acute Qualifiers: Site of cellulitis: extremity Site of cellulitis of extremity: lower extremity Laterality: unspecified laterality Qualified Code(s): L03.119 - Cellulitis of unspecified part of limb (6) Hypomagnesemia Current Visit: Yes Status: Acute Assessment and plan: wnl today, will continue monitoring. (7) Acute kidney injury Current Visit: Yes Status: Acute Assessment and plan: possible induced by vancomycin plus poor oral intake, vancomycin levels were high and vanc was stopped. creat improving, will continue monitoring, avoid nephrotoxic agents, adilene inh were stopped. . (8) Generalized weakness Current Visit: Yes Status: Acute Assessment and plan: generalized weakness in setting of chronic alcohol intake and poor nutrition status, drowsiness, decreased dose of gabapentin. avoid opiates. had a fall yesteday, xray noted, did not rule out a fracutre, a ct was obtained , no evidence of fracture was found. continue with PT. - Subjective Interval history: seen and examined still drowsy at intervals, eats with assistance, bilateral tremors in upper extremities. chronic active smoker. drinks beer daily, just prior to arrival. had a fall yesterday a lumbar spine xray was ordered. - Constitutional Vitals: Temp Pulse Resp BP Pulse Ox 98.3 F 85 18 148/84 95 07/07/16 16:55 07/07/16 16:55 07/07/16 16:55 07/07/16 16:55 07/07/16 16:55 General appearance: Present: A&O X 1, mild distress, answers questions appropriately - Head Head exam: Present: atraumatic, normocephalic - Eye Eye exam: Present: PERRL, conjuntiva pink, sclera anicteric Pupils: Present: PERRL - Neck Neck exam general surgery: Present: supple, trachea midline. Absent: lymphadenopathy - Respiratory Respiratory exam: Present: CTAB. Absent: accessory muscle use, rales, rhonchi, wheezes - Cardiovascular Cardiovascular exam: Present: RRR, +S1, +S2. Absent: diastolic murmur, gallop, rubs, systolic murmur - GI/Abdominal GI/Abdominal exam: Present: normal bowel sounds, soft, no peritoneal signs. Absent: distended, tenderness - Extremities Exam Extremities exam: Present: warm, radial pulses palpable and symetrical. Absent : calf tenderness, cyanotic, pedal edema - Neurological Exam Neurological exam: Present: CN II-XII intact, oriented X3, no focal deficits. Absent: pronater drift, facial droop, speech deficit - Skin Skin exam: Present: dry, intact Internal Medicine: Result - Labs CBC & Chem 7: 07/07/16 04:12 07/07/16 04:12 Labs: Short CBC 07/07/16 Range/Units 04:12 WBC 5.1 (4.3-11.1) K/mcL Hgb 11.6 L (12.9-16.9) g/dL Hct 36.7 L (37.5-50.1) % Plt Count 147 (140-400) K/mcL Neutrophils # 2.8 (1.6-8.9) K/mcL BMP 07/07/16 04:12 Sodium 142 Potassium 3.5 Chloride 103 Carbon Dioxide 31 H BUN 15 Creatinine 1.18 Glucose 97 Calcium 9.0 Liver Function 07/07/16 Range/Units 04:12 Total Bilirubin 0.5 (0.2-1.2) mg/dL Direct Bilirubin 0.3 (0.0-0.5) mg/dL AST 26 (5-34) Units/L ALT 28 (0-55) Units/L Alkaline Phosphatase 85 (38-126) Units/L Albumin 2.6 L (3.5-5.0) g/dL - Impressions Impressions Lumbar Spine X-Ray 07/06/16 18:54 IMPRESSION: Spondylolisthesis at L5-S1 with subtle lucency through the inferior endplate. Possibility of endplate fracture cannot be excluded. Recommend follow-up evaluation with CT for further evaluation. MRI may be considered alternatively to evaluate for edema of acute injury. D/ / Mark Walls MD / Mark Walls MD Interpreting Provider: Mark Walls MD Lumbar Spine CT 07/07/16 10:15 IMPRESSION: 1. Negative for fracture. 2. L5 spondylolysis with grade 2 spondylolisthesis and severe L5/S1 spondylosis. D/ / Silver Reeves MD / Silver Reeves MD Interpreting Provider: Silver Reeves MD Consult Discharge Plan - Plan Referrals: Tootie Montano, IMPORT/EXPORT CLERK [Primary Care Provider] - 07/19/16 1:15 pm ()
[2016-07-07] MEDS: *HR* LORazepam 2 MG/ML VIAL IVP PRN (23:49)
[2016-07-08] MEDS: metroNIDAZOLE 500 MG TABLET PO SCH ×3 (01:10→16:41)
[2016-07-08] MEDS: *HR* LORazepam 2 MG/ML VIAL IVP PRN ×4 (01:10→22:50)
[2016-07-08] MEDS: Ipratropium/Albuterol Neb 3 ML IH SCH ×4 (04:25→21:39)
[2016-07-08] MEDS: *HR* Enoxaparin 40 MG/0.4 ML SYRINGE SQ SCH (05:56)
[2016-07-08] MEDS: Gabapentin 400 MG CAPSULE PO SCH ×3 (05:56→20:59)
[2016-07-08] MEDS: 0.9 % Sodium Chloride 1,000 ML IVC SCH (05:59)
[2016-07-08 06:22] LABS: Basophils % 0.6 %; Eosinophils # 0.3 K/mcL (0.0-0.6); Eosinophils % 6.4 %; Hematocrit 39.1 % (37.5-50.1); Hemoglobin 12.1 g/dL (12.9-16.9); Immature Granulocytes % 0.6 % (0-4); Mean Corpuscular HGB Conc 30.9 g/dL (31.6-35.5); Mean Corpuscular Hemoglobin 29.7 pg (28.0-33.3); Mean Corpuscular Volume 95.8 fL (83.0-100.0); Mean Platelet Volume 8.8 fL (9.4-12.4); Monocytes # 0.8 K/mcL (0.0-1.3); Monocytes % 16.7 %; Neutrophils # 2.5 K/mcL (1.6-8.9); Platelet Count 166 K/mcL (140-400); Red Blood Count 4.08 M/mcL (4.19-5.50); Red Cell Distribution Width 19.5 % (11.5-14.5); Segmented Neutrophils % 53.7 %
[2016-07-08 06:33] LABS: BUN/Creatinine Ratio 9 (6-26); Blood Urea Nitrogen 11 mg/dL (8-26); Carbon Dioxide 29 mEq/L (19-29); Chloride 107 mEq/L (98-109); Glucose 85 mg/dL (70-99); Osmolality,Calculated 299 (280-300); Potassium 3.6 mEq/L (3.5-4.5); Sodium 145 mEq/L (136-145); eGFR For African Americans > 60 (> 60); eGFR For Non-African Americans > 60 (> 60)
[2016-07-08 06:35] LABS: Albumin 2.7 g/dL (3.5-5.0); Albumin/Globulin Ratio 0.8 (1.1-2.2); Bilirubin,Direct 0.4 mg/dL (0.0-0.5); Bilirubin,Indirect 0.1 mg/dL (0.0-1.2); Bilirubin,Total 0.5 mg/dL (0.2-1.2); Globulin 3.6 g/dL (2.4-3.5); Total Protein 6.3 g/dL (6.0-8.3)
--- NOTE | 2016-07-08 08:00 | Event Note ---
Date of Encounter: 07/08/16 Time of Encounter: 07:57 Patient remains encephalopathic. My recommendations are repeat IR guided diagnostic thoracentesis for additional pleural fluid sample. This should be done when patient is more stable from a mental status perspective and able to cooperate with examination. Please send for following studies pH, Cell Count, Gram stain, Micro incuding AFB, LDH, Tot Protein, ADA, Triglycerides, Amylase, Cholesterol, and Cytology Pulmonary we will follow peripherally until procedure to be performed and fluid analysis undertaken Call with any questions
[2016-07-08] MEDS: Lactobacillus 1 EACH CAP.SPRINK PO SCH ×2 (08:24→20:59)
[2016-07-08] MEDS: Folic Acid 1 MG TABLET PO SCH (08:24)
[2016-07-08] MEDS: Thiamine (B-1) 100 MG TABLET PO SCH (08:24)
[2016-07-08] MEDS: Magnesium Oxide 400 MG TABLET PO SCH ×2 (08:25→20:59)
[2016-07-08] MEDS: Vitamin B Complex/Vit C/Vit E 1 EACH TABLET PO SCH (08:25)
[2016-07-08] MEDS ORDERED: Furosemide 20 MG/2 ML VIAL IVP ONE (10:12)
--- NOTE | 2016-07-08 16:02 | Internal Med Progress Note ---
Date of Encounter: 07/08/16 Time of Encounter: 13:20 - Assessment and plan (1) Pleural effusion, right Current Visit: Yes Status: Acute Assessment and plan: s/p thoracentesis, fluid consistent with exudate, ct obtained , which also revealed effusion, infiltrates and a residual pneumothroax, pulmonology consulted in light of exudate fluid. broad differential including parapneumonic vs tb or even malignancy. ada requested. continue monitoring. continnue antibiotc for aspiration pna. follow ada. pulmonology input noted, might need new thoracentesis, possibly monday. (2) Alcoholic liver disease Current Visit: Yes Status: Chronic Assessment and plan: chronic alcohol intake. drowsy and with tremors, however likely drowsiness induced by ativan continue librium. DT prophlyaixs. monitor lfts. (3) Essential hypertension Current Visit: Yes Status: Chronic Assessment and plan: likely elevated bp due to alcohol withdrwal, will ocntinue monitiring. (4) Pneumonia Current Visit: No Status: Inactive Assessment and plan: allergic to penicilins, risk of aspiration, xray and ct consistent with pneumonia, continue with rocephin, and flagyl por possible aspiration pneumonia since he was receving keflex as outpatient without reactions. vancomycin was stopped. speech and swallow eval noted, diet modified accordingly. Qualifiers: Pneumonia type: aspiration pneumonia Aspiration pneumonia type: due to regurgitated food Laterality: right Lung location: lower lobe of lung Qualified Code(s): J69.0 - Pneumonitis due to inhalation of food and vomit (5) Cellulitis Current Visit: Yes Status: Acute Qualifiers: Site of cellulitis: extremity Site of cellulitis of extremity: lower extremity Laterality: unspecified laterality Qualified Code(s): L03.119 - Cellulitis of unspecified part of limb (6) Hypomagnesemia Current Visit: Yes Status: Acute (7) Acute kidney injury Current Visit: Yes Status: Acute Assessment and plan: improving, possible induced by vancomycin plus poor oral intake, vancomycin levels were high and vanc was stopped. creat improving, will continue monitoring , avoid nephrotoxic agents, adilene inh were stopped. . (8) Generalized weakness Current Visit: Yes Status: Acute Assessment and plan: generalized weakness in setting of chronic alcohol intake and poor nutrition status, drowsiness, decreased dose of gabapentin. avoid opiates. continue with PT. - Subjective Interval history: seen and examined drowsy today, he did received 3 mg of ativan overnight. chronic active smoker. drinks beer daily, just prior to arrival. - Constitutional Vitals: Temp Pulse Resp BP Pulse Ox 98.0 F 86 18 130/85 92 07/08/16 15:07 07/08/16 15:07 07/08/16 15:07 07/08/16 15:07 07/08/16 15:07 General appearance: Present: A&O X 1, mild distress, answers questions appropriately - Head Head exam: Present: atraumatic, normocephalic - Eye Eye exam: Present: PERRL, conjuntiva pink, sclera anicteric Pupils: Present: PERRL - Neck Neck exam general surgery: Present: supple, trachea midline. Absent: lymphadenopathy - Respiratory Respiratory exam: Present: decreased breath sounds. Absent: accessory muscle use, rales, rhonchi, wheezes - Cardiovascular Cardiovascular exam: Present: RRR, +S1, +S2. Absent: diastolic murmur, gallop, rubs, systolic murmur - GI/Abdominal GI/Abdominal exam: Present: normal bowel sounds, soft, no peritoneal signs. Absent: distended, tenderness - Extremities Exam Extremities exam: Present: warm, radial pulses palpable and symetrical. Absent : calf tenderness, cyanotic, pedal edema - Neurological Exam Neurological exam: Present: CN II-XII intact, oriented X3, no focal deficits. Absent: pronater drift, facial droop, speech deficit - Skin Skin exam: Present: dry, intact Internal Medicine: Result - Labs CBC & Chem 7: 07/08/16 06:09 07/08/16 06:09 Labs: Short CBC 07/08/16 Range/Units 06:09 WBC 4.7 (4.3-11.1) K/mcL Hgb 12.1 L (12.9-16.9) g/dL Hct 39.1 (37.5-50.1) % Plt Count 166 (140-400) K/mcL Neutrophils # 2.5 (1.6-8.9) K/mcL BMP 07/08/16 06:09 Sodium 145 Potassium 3.6 Chloride 107 Carbon Dioxide 29 BUN 11 Creatinine 1.16 Glucose 85 Calcium 9.0 Liver Function 07/08/16 Range/Units 06:09 Total Bilirubin 0.5 (0.2-1.2) mg/dL Direct Bilirubin 0.4 (0.0-0.5) mg/dL AST 27 (5-34) Units/L ALT 26 (0-55) Units/L Alkaline Phosphatase 89 (38-126) Units/L Albumin 2.7 L (3.5-5.0) g/dL Consult Discharge Plan - Plan Referrals: Tootie Montano CNP [Primary Care Provider] - 07/19/16 1:15 pm ()
[2016-07-09] MEDS: metroNIDAZOLE 500 MG TABLET PO SCH ×3 (02:52→18:52)
[2016-07-09 04:15] LABS: Basophils % 0.8 %; Eosinophils # 0.3 K/mcL (0.0-0.6); Eosinophils % 5.9 %; Hematocrit 38.2 % (37.5-50.1); Hemoglobin 11.6 g/dL (12.9-16.9); Immature Granulocytes % 0.6 % (0-4); Lymphocytes % 19.3 %; Mean Corpuscular HGB Conc 30.4 g/dL (31.6-35.5); Mean Corpuscular Hemoglobin 29.4 pg (28.0-33.3); Monocytes # 0.8 K/mcL (0.0-1.3); Monocytes % 15.7 %; Neutrophils # 2.9 K/mcL (1.6-8.9); Platelet Count 184 K/mcL (140-400); Red Blood Count 3.94 M/mcL (4.19-5.50); Red Cell Distribution Width 19.2 % (11.5-14.5); Segmented Neutrophils % 57.7 %
[2016-07-09 04:37] LABS: Alanine Aminotransferase 23 Units/L (0-55); Albumin 2.5 g/dL (3.5-5.0); Albumin/Globulin Ratio 0.7 (1.1-2.2); Alkaline Phosphatase 79 Units/L (38-126); Aspartate Amino Transferase 24 Units/L (5-34); BUN/Creatinine Ratio 10 (6-26); Bilirubin,Direct 0.3 mg/dL (0.0-0.5); Bilirubin,Indirect 0.2 mg/dL (0.0-1.2); Bilirubin,Total 0.5 mg/dL (0.2-1.2); Blood Urea Nitrogen 11 mg/dL (8-26); Calcium 8.8 mg/dL (8.6-10.8); Carbon Dioxide 31 mEq/L (19-29); Chloride 110 mEq/L (98-109); Globulin 3.5 g/dL (2.4-3.5); Glucose 84 mg/dL (70-99); Osmolality,Calculated 307 (280-300); Potassium 3.7 mEq/L (3.5-4.5); Sodium 149 mEq/L (136-145); eGFR For African Americans > 60 (> 60); eGFR For Non-African Americans > 60 (> 60)
[2016-07-09] MEDS: Ipratropium/Albuterol Neb 3 ML IH SCH ×4 (04:49→21:23)
[2016-07-09] MEDS: Gabapentin 400 MG CAPSULE PO SCH ×3 (05:20→21:08)
[2016-07-09] MEDS: *HR* Enoxaparin 40 MG/0.4 ML SYRINGE SQ SCH (06:26)
[2016-07-09 07:46] LABS: INR 1.3; Prothrombin Time 13.9 Seconds (9.4-12.1)
[2016-07-09] MEDS ORDERED: Furosemide 20 MG/2 ML VIAL IVP ONE (07:50)
[2016-07-09] MEDS ORDERED: Furosemide 20 MG/2 ML VIAL IVP STA (07:50)
[2016-07-09 08:20] LABS: ABG Base Excess 6.8 mEq/L (-2.0 to 3.0); ABG HCO3 35.9 mEQ/L (21-27); ABG Oxygen Saturation 91 % (95-98); ABG PO2 67 mmHg (85-104); ABG TCO2 38.1 mEq/L (20-26)
[2016-07-09 08:21] LABS: Blood Gas FiO2 34 %
[2016-07-09 08:26] LABS: ABG PCO2 73 mmHg (35-45)
--- NOTE | 2016-07-09 09:20 | Internal Med Progress Note ---
Date of Encounter: 07/09/16 Time of Encounter: 07:35 - Assessment and plan (1) Altered mental status Current Visit: Yes Status: Acute Assessment and plan: multifactorial, found to have respiratory acidosis with co2 retention, likely exacerbated by ativan, will start bipap. patient with chronic alcoholic use and DTs, continue ciwa protocol. chest x ray done, reviewed, persistent effusion. Qualifiers: Altered mental status type: transient alteration of awareness Qualified Code(s): R40.4 - Transient alteration of awareness (2) Hypernatremia Current Visit: Yes Status: Acute Assessment and plan: poor oral intake, will start d5 water (3) Pleural effusion, right Current Visit: Yes Status: Acute Assessment and plan: s/p thoracentesis, fluid consistent with exudate, ct obtained , which also revealed effusion, infiltrates and a residual pneumothroax, pulmonology consulted in light of exudate fluid, broad differential including parapneumonic vs tb or even malignancy. ada requested, pulmonology input noted, might need new thoracentesis, possibly monday. (4) Alcoholic liver disease Current Visit: Yes Status: Chronic (5) Essential hypertension Current Visit: Yes Status: Chronic (6) Pneumonia Current Visit: No Status: Inactive Assessment and plan: allergic to penicilins, risk of aspiration, xray and ct consistent with pneumonia, continue with rocephin, and flagyl por possible aspiration pneumonia since he was receving keflex as outpatient without reactions. vancomycin was stopped. Qualifiers: Pneumonia type: aspiration pneumonia Aspiration pneumonia type: due to regurgitated food Laterality: right Lung location: lower lobe of lung Qualified Code(s): J69.0 - Pneumonitis due to inhalation of food and vomit (7) Cellulitis Current Visit: Yes Status: Acute Qualifiers: Site of cellulitis: extremity Site of cellulitis of extremity: lower extremity Laterality: unspecified laterality Qualified Code(s): L03.119 - Cellulitis of unspecified part of limb (8) Hypomagnesemia Current Visit: Yes Status: Acute Assessment and plan: rechck levels today (9) Acute kidney injury Current Visit: Yes Status: Acute Assessment and plan: stable, will continue monitoring. (10) Generalized weakness Current Visit: Yes Status: Acute Assessment and plan: generalized weakness in setting of chronic alcohol intake and poor nutrition status, drowsiness, decreased dose of gabapentin. avoid opiates. continue with PT. - Subjective Interval history: seen and examined drowsy today, he did received ativan overnight. tachpneic. chronic active smoker. drinks beer daily, just prior to arrival. - Constitutional Vitals: Temp Pulse Resp BP Pulse Ox 98.4 F 92 40 141/79 94 07/09/16 08:25 07/09/16 08:25 07/09/16 08:25 07/09/16 08:25 07/09/16 08:25 General appearance: Present: A&O X 1, answers questions appropriately Exam: mod distress, tachypneic - Head Head exam: Present: atraumatic, normocephalic - Eye Eye exam: Present: PERRL, conjuntiva pink, sclera anicteric Pupils: Present: PERRL - Neck Neck exam general surgery: Present: supple, trachea midline. Absent: lymphadenopathy - Respiratory Respiratory exam: Present: decreased breath sounds, respiratory distress, rhonchi. Absent: accessory muscle use, rales, wheezes - Cardiovascular Cardiovascular exam: Present: RRR, +S1, +S2. Absent: diastolic murmur, gallop, rubs, systolic murmur - GI/Abdominal GI/Abdominal exam: Present: normal bowel sounds, soft, no peritoneal signs. Absent: distended, tenderness - Extremities Exam Extremities exam: Present: warm, radial pulses palpable and symetrical. Absent : calf tenderness, cyanotic, pedal edema - Neurological Exam Neurological exam: Present: alert, CN II-XII intact, no focal deficits. Absent : pronater drift, facial droop, speech deficit - Skin Skin exam: Present: dry, intact Internal Medicine: Result - Labs CBC & Chem 7: 07/09/16 03:45 07/09/16 03:45 Labs: Short CBC 07/09/16 Range/Units 03:45 WBC 5.1 (4.3-11.1) K/mcL Hgb 11.6 L (12.9-16.9) g/dL Hct 38.2 (37.5-50.1) % Plt Count 184 (140-400) K/mcL Neutrophils # 2.9 (1.6-8.9) K/mcL BMP 07/09/16 03:45 Sodium 149 H Potassium 3.7 Chloride 110 H Carbon Dioxide 31 H BUN 11 Creatinine 1.09 Glucose 84 Calcium 8.8 Liver Function 07/09/16 Range/Units 03:45 Total Bilirubin 0.5 (0.2-1.2) mg/dL Direct Bilirubin 0.3 (0.0-0.5) mg/dL AST 24 (5-34) Units/L ALT 23 (0-55) Units/L Alkaline Phosphatase 79 (38-126) Units/L Albumin 2.5 L (3.5-5.0) g/dL - ABG Interpretation ABG results: ABG ABG pH 7.30 pH Units (7.32-7.45) L 07/09/16 08:08 ABG pCO2 73 mmHg (35-45) H* 07/09/16 08:08 ABG pO2 67 mmHg (85-104) L 07/09/16 08:08 ABG O2 Saturation 91 % (95-98) L 07/09/16 08:08 PT/INR, D-dimer PT 13.9 Seconds (9.4-12.1) H 07/09/16 07:32 - Impressions Impressions Chest X-Ray 07/09/16 07:48 IMPRESSION: Stable chest. Stable cardiomegaly. Low lung volumes. Moderate pulmonary vascular congestion. Moderate to large right pleural effusion, stable. Atelectasis at the right lung base. D/ / Lopez Rowell MD / Lopez Rowell MD Interpreting Provider: Lopez Rowell MD Consult Discharge Plan - Plan Referrals: Tootie Montano CNP [Primary Care Provider] - 07/19/16 1:15 pm ()
[2016-07-09] MEDS: Folic Acid 1 MG TABLET PO SCH (09:30)
[2016-07-09] MEDS: Magnesium Oxide 400 MG TABLET PO SCH ×2 (09:30→21:08)
[2016-07-09] MEDS: Vitamin B Complex/Vit C/Vit E 1 EACH TABLET PO SCH (09:30)
[2016-07-09] MEDS: Lactobacillus 1 EACH CAP.SPRINK PO SCH ×2 (09:30→21:08)
[2016-07-09] MEDS: D5% in Water 1,000 ML IVC SCH (09:31)
[2016-07-09] MEDS: Thiamine (B-1) 100 MG TABLET PO SCH (09:31)
[2016-07-09 12:14] LABS: ABG HCO3 37.9 mEQ/L (21-27); ABG Oxygen Saturation 94 % (95-98); ABG PCO2 67 mmHg (35-45); ABG PH 7.36 pH Units (7.32-7.45); ABG PO2 73 mmHg (85-104); Blood Gas FiO2 40 %
[2016-07-09] MEDS ORDERED: Magnesium Sulfate 2 GM in D5% in Water 100 ML IVPB ONE (12:27)
[2016-07-10] MEDS: D5% in Water 1,000 ML IVC SCH ×2 (00:50→20:38)
[2016-07-10] MEDS: metroNIDAZOLE 500 MG TABLET PO SCH ×2 (00:51→08:37)
[2016-07-10] MEDS: Ipratropium/Albuterol Neb 3 ML IH SCH ×4 (05:04→22:13)
[2016-07-10] MEDS: Gabapentin 400 MG CAPSULE PO SCH ×3 (05:55→20:37)
[2016-07-10] MEDS: *HR* Enoxaparin 40 MG/0.4 ML SYRINGE SQ SCH (05:55)
[2016-07-10 06:31] LABS: Basophils # 0.1 K/mcL (0.0-0.2); Basophils % 0.8 %; Eosinophils # 0.4 K/mcL (0.0-0.6); Eosinophils % 5.6 %; Hematocrit 38.9 % (37.5-50.1); Hemoglobin 11.8 g/dL (12.9-16.9); Immature Granulocytes % 0.3 % (0-4); Lymphocytes # 1.4 K/mcL (0.6-4.6); Lymphocytes % 19.8 %; Mean Corpuscular HGB Conc 30.3 g/dL (31.6-35.5); Mean Corpuscular Hemoglobin 29.1 pg (28.0-33.3); Mean Platelet Volume 9.6 fL (9.4-12.4); Monocytes # 0.7 K/mcL (0.0-1.3); Monocytes % 9.2 %; Neutrophils # 4.7 K/mcL (1.6-8.9); Platelet Count 210 K/mcL (140-400); Red Blood Count 4.05 M/mcL (4.19-5.50); Red Cell Distribution Width 19.2 % (11.5-14.5); Segmented Neutrophils % 64.3 %
[2016-07-10 06:46] LABS: Alanine Aminotransferase 22 Units/L (0-55); Albumin 2.6 g/dL (3.5-5.0); Albumin/Globulin Ratio 0.7 (1.1-2.2); Alkaline Phosphatase 76 Units/L (38-126); Aspartate Amino Transferase 22 Units/L (5-34); BUN/Creatinine Ratio 8 (6-26); Bilirubin,Direct 0.3 mg/dL (0.0-0.5); Bilirubin,Indirect 0.3 mg/dL (0.0-1.2); Bilirubin,Total 0.6 mg/dL (0.2-1.2); Blood Urea Nitrogen 10 mg/dL (8-26); Calcium 8.8 mg/dL (8.6-10.8); Carbon Dioxide 35 mEq/L (19-29); Chloride 102 mEq/L (98-109); Globulin 3.6 g/dL (2.4-3.5); Glucose 89 mg/dL (70-99); Osmolality,Calculated 297 (280-300); Potassium 3.3 mEq/L (3.5-4.5); Sodium 144 mEq/L (136-145); Total Protein 6.2 g/dL (6.0-8.3); eGFR For African Americans > 60 (> 60); eGFR For Non-African Americans > 60 (> 60)
[2016-07-10] MEDS: Thiamine (B-1) 100 MG TABLET PO SCH (08:37)
[2016-07-10] MEDS: Vitamin B Complex/Vit C/Vit E 1 EACH TABLET PO SCH (08:37)
[2016-07-10] MEDS: Magnesium Oxide 400 MG TABLET PO SCH ×2 (08:37→20:38)
[2016-07-10] MEDS: Aspirin 81 MG TAB.CHEW PO SCH (08:38)
[2016-07-10] MEDS: Lactobacillus 1 EACH CAP.SPRINK PO SCH ×2 (08:38→20:37)
[2016-07-10] MEDS: *HR* LORazepam 2 MG/ML VIAL IVP PRN ×2 (08:38→20:58)
[2016-07-10] MEDS: Folic Acid 1 MG TABLET PO SCH (08:38)
--- NOTE | 2016-07-10 12:11 | Internal Med Progress Note ---
Date of Encounter: 07/10/16 Time of Encounter: 09:00 - Assessment and plan (1) Altered mental status Current Visit: Yes Status: Acute Assessment and plan: multifactorial, yesterday he was found to have respiratory acidosis with co2 retention, likely exacerbated by ativan, a chest x-ray was obtained and there were no significant changes. He was placed on BiPAP and he did improve. He is CO2 retention at better and also his pH improved significantly. Qualifiers: Altered mental status type: transient alteration of awareness Qualified Code(s): R40.4 - Transient alteration of awareness (2) Hypernatremia Current Visit: Yes Status: Acute Assessment and plan: Improving. Continue with D 5 water. (3) Pleural effusion, right Current Visit: Yes Status: Acute Assessment and plan: s/p thoracentesis, fluid consistent with exudate, ct obtained , which also revealed effusion, infiltrates and a residual pneumothroax, pulmonology consulted in light of exudate fluid, pulmonology input noted, I have placed a consultation with interventional radiology for a new thoracentesis and studies of the pleural fluid. (4) Alcoholic liver disease Current Visit: Yes Status: Chronic (5) Essential hypertension Current Visit: Yes Status: Chronic (6) Pneumonia Current Visit: No Status: Inactive Qualifiers: Pneumonia type: aspiration pneumonia Aspiration pneumonia type: due to regurgitated food Laterality: right Lung location: lower lobe of lung Qualified Code(s): J69.0 - Pneumonitis due to inhalation of food and vomit (7) Cellulitis Current Visit: Yes Status: Acute Assessment and plan: Resolved Qualifiers: Site of cellulitis: extremity Site of cellulitis of extremity: lower extremity Laterality: unspecified laterality Qualified Code(s): L03.119 - Cellulitis of unspecified part of limb (8) Hypomagnesemia Current Visit: Yes Status: Acute (9) Acute kidney injury Current Visit: Yes Status: Acute (10) Generalized weakness Current Visit: Yes Status: Acute Assessment and plan: generalized weakness in setting of chronic alcohol intake and poor nutrition status, drowsiness, decreased dose of gabapentin. avoid opiates. continue with PT. recommended placement ECF - Subjective Interval history: seen and examined More alert today. Improved significantly after BiPAP yesterday. chronic active smoker. drinks beer daily, just prior to arrival. - Constitutional Vitals: Temp Pulse Resp BP Pulse Ox 98.1 F 83 18 131/72 95 07/10/16 09:21 07/10/16 09:21 07/10/16 10:57 07/10/16 09:21 07/10/16 10:57 General appearance: Present: cooperative, A&O X 2, answers questions appropriately - Head Head exam: Present: atraumatic, normocephalic - Eye Eye exam: Present: PERRL, conjuntiva pink, sclera anicteric Pupils: Present: PERRL - Neck Neck exam general surgery: Present: supple, trachea midline. Absent: lymphadenopathy - Respiratory Respiratory exam: Present: decreased breath sounds. Absent: accessory muscle use, rales, rhonchi, wheezes - Cardiovascular Cardiovascular exam: Present: RRR, +S1, +S2. Absent: diastolic murmur, gallop, rubs, systolic murmur - GI/Abdominal GI/Abdominal exam: Present: normal bowel sounds, soft, no peritoneal signs. Absent: distended, tenderness - Extremities Exam Extremities exam: Present: warm, radial pulses palpable and symetrical. Absent : calf tenderness, cyanotic, pedal edema - Neurological Exam Neurological exam: Present: CN II-XII intact, oriented X3, no focal deficits. Absent: pronater drift, facial droop, speech deficit - Skin Skin exam: Present: dry, intact Internal Medicine: Result - Labs CBC & Chem 7: 07/10/16 05:52 07/10/16 05:52 Labs: Short CBC 07/10/16 Range/Units 05:52 WBC 7.3 (4.3-11.1) K/mcL Hgb 11.8 L (12.9-16.9) g/dL Hct 38.9 (37.5-50.1) % Plt Count 210 (140-400) K/mcL Neutrophils # 4.7 (1.6-8.9) K/mcL BMP 07/10/16 05:52 Sodium 144 Potassium 3.3 L Chloride 102 Carbon Dioxide 35 H BUN 10 Creatinine 1.21 Glucose 89 Calcium 8.8 Liver Function 07/10/16 Range/Units 05:52 Total Bilirubin 0.6 (0.2-1.2) mg/dL Direct Bilirubin 0.3 (0.0-0.5) mg/dL AST 22 (5-34) Units/L ALT 22 (0-55) Units/L Alkaline Phosphatase 76 (38-126) Units/L Albumin 2.6 L (3.5-5.0) g/dL - ABG Interpretation ABG results: ABG ABG pH 7.36 pH Units (7.32-7.45) 07/09/16 12:00 ABG pCO2 67 mmHg (35-45) H 07/09/16 12:00 ABG pO2 73 mmHg (85-104) L 07/09/16 12:00 ABG O2 Saturation 94 % (95-98) L 07/09/16 12:00 PT/INR, D-dimer PT 13.9 Seconds (9.4-12.1) H 07/09/16 07:32 Consult Discharge Plan - Plan Referrals: Tootie Montano CNP [Primary Care Provider] - 07/19/16 1:15 pm ()
[2016-07-10] MEDS ORDERED: MetroNIDAZOLE 500 MG/100 ML 500 MG/100 ML BAG IVPB SCH (16:00)
[2016-07-10] MEDS: MetroNIDAZOLE 500 MG/100 ML 500 MG/100 ML BAG IVPB SCH (20:50)
[2016-07-11] MEDS: Gabapentin 400 MG CAPSULE PO SCH (03:53)
[2016-07-11] MEDS: Ipratropium/Albuterol Neb 3 ML IH SCH ×4 (04:48→21:08)
[2016-07-11] MEDS: MetroNIDAZOLE 500 MG/100 ML 500 MG/100 ML BAG IVPB SCH ×2 (05:26→13:56)
[2016-07-11] MEDS: *HR* Enoxaparin 40 MG/0.4 ML SYRINGE SQ SCH (05:26)
[2016-07-11 06:51] LABS: Basophils # 0.1 K/mcL (0.0-0.2); Basophils % 0.4 %; Eosinophils # 0.4 K/mcL (0.0-0.6); Eosinophils % 3.5 %; Hematocrit 39.7 % (37.5-50.1); Hemoglobin 12.4 g/dL (12.9-16.9); Immature Granulocytes % 0.4 % (0-4); Immature Platelets 3.3 % (1.1-6.1); Lymphocytes # 1.2 K/mcL (0.6-4.6); Lymphocytes % 10.4 %; Mean Corpuscular HGB Conc 31.2 g/dL (31.6-35.5); Mean Corpuscular Hemoglobin 29.8 pg (28.0-33.3); Mean Corpuscular Volume 95.4 fL (83.0-100.0); Mean Platelet Volume 9.5 fL (9.4-12.4); Monocytes # 0.7 K/mcL (0.0-1.3); Monocytes % 6.3 %; Neutrophils # 8.9 K/mcL (1.6-8.9); Platelet Count 250 K/mcL (140-400); Red Blood Count 4.16 M/mcL (4.19-5.50); Red Cell Distribution Width 18.9 % (11.5-14.5)
[2016-07-11 07:08] LABS: Alanine Aminotransferase 23 Units/L (0-55); Albumin 2.6 g/dL (3.5-5.0); Albumin/Globulin Ratio 0.6 (1.1-2.2); Alkaline Phosphatase 76 Units/L (38-126); Aspartate Amino Transferase 34 Units/L (5-34); BUN/Creatinine Ratio 9 (6-26); Bilirubin,Direct 0.3 mg/dL (0.0-0.5); Bilirubin,Indirect 0.4 mg/dL (0.0-1.2); Bilirubin,Total 0.7 mg/dL (0.2-1.2); Blood Urea Nitrogen 10 mg/dL (8-26); Calcium 8.9 mg/dL (8.6-10.8); Carbon Dioxide 31 mEq/L (19-29); Chloride 104 mEq/L (98-109); Globulin 4.2 g/dL (2.4-3.5); Glucose 93 mg/dL (70-99); Lactate Dehydrogenase 272 Units/L (159-327); Osmolality,Calculated 299 (280-300); Potassium 4.2 mEq/L (3.5-4.5); Sodium 145 mEq/L (136-145); Total Protein 6.8 g/dL (6.0-8.3); eGFR For African Americans > 60 (> 60); eGFR For Non-African Americans > 60 (> 60)
[2016-07-11] MEDS: Lactobacillus 1 EACH CAP.SPRINK PO SCH ×2 (10:00→21:58)
[2016-07-11] MEDS: Magnesium Oxide 400 MG TABLET PO SCH ×2 (10:00→21:58)
[2016-07-11] MEDS: Thiamine (B-1) 100 MG TABLET PO SCH (10:00)
[2016-07-11] MEDS: Aspirin 81 MG TAB.CHEW PO SCH (10:00)
[2016-07-11] MEDS: Folic Acid 1 MG TABLET PO SCH (10:00)
[2016-07-11] MEDS: Vitamin B Complex/Vit C/Vit E 1 EACH TABLET PO SCH (10:00)
[2016-07-11] MEDS ORDERED: Furosemide 20 MG/2 ML VIAL IVP ONE (10:21)
[2016-07-11 14:01] LABS: ABG Base Excess 10.7 mEq/L (-2.0 to 3.0); ABG HCO3 38.1 mEQ/L (21-27); ABG Oxygen Saturation 91 % (95-98); ABG PCO2 63 mmHg (35-45); ABG PH 7.39 pH Units (7.32-7.45); ABG PO2 62 mmHg (85-104)
[2016-07-11 14:08] LABS: Blood Gas FiO2 35 %
[2016-07-11] MEDS: Gabapentin 300 MG CAPSULE PO SCH ×2 (16:07→21:58)
[2016-07-11] MEDS ORDERED: D5% in Water 250 ML ONE (16:17)
[2016-07-11] MEDS: Piperacillin/Tazobactam 3.375 GM in D5% in Water (Mini-Bag+) 100 ML IVPB SCH (16:19)
[2016-07-11] MEDS: Vancomycin 1,000 MG in D5% in Water 250 ML IVPB SCH (16:19)
--- NOTE | 2016-07-11 17:01 | Internal Med Progress Note ---
Date of Encounter: 07/11/16 Time of Encounter: 10:40 - Assessment and plan (1) Altered mental status Current Visit: Yes Status: Acute Assessment and plan: multifactorial, likely exacerbated by ativan, a chest x-ray was obtained and there were no significant changes, gave a dose of lasix due to vascular congestion and put him back on bipap. He was placed on BiPAP and he did improve. He is CO2 retention is better and also his pH improved compared to the ones he had on the weekend. He was supposed to go for a thoracentesis today , however the due to tachypnea and respiratory distress the use was not done by our interventional radiology team. We tried to do it tomorrow if patient is more stable. Qualifiers: Altered mental status type: transient alteration of awareness Qualified Code(s): R40.4 - Transient alteration of awareness (2) Hypernatremia Current Visit: Yes Status: Acute (3) Pleural effusion, right Current Visit: Yes Status: Acute Assessment and plan: s/p thoracentesis on admission, fluid consistent with exudate, ct was obtained , which also revealed effusion, infiltrates and a residual pneumothroax, pulmonology consulted in light of exudate fluid, pulmonology input noted, I have placed a consultation with interventional radiology for a new thoracentesis and studies of the pleural fluid, plan was to repeat the thoracentesis today, this was put on hold due to patient being on distress. There is some mild increase in his white count, at this point given the fact that the patient has received antibiotic therapy for aspiration pneumonia for 10 days already and the patient is not improving clinically I will increase his antibiotic coverage with both vancomycin and Zosyn and therefore we will stop Rocephin and Flagyl. Ideally we should repeat the thoracentesis for further identification of the etiology of the Exudative effusion. (4) Alcoholic liver disease Current Visit: Yes Status: Chronic (5) Essential hypertension Current Visit: Yes Status: Chronic (6) Pneumonia Current Visit: No Status: Inactive Assessment and plan: see above. Qualifiers: Pneumonia type: aspiration pneumonia Aspiration pneumonia type: due to regurgitated food Laterality: right Lung location: lower lobe of lung Qualified Code(s): J69.0 - Pneumonitis due to inhalation of food and vomit (7) Cellulitis Current Visit: Yes Status: Acute Assessment and plan: Resolved Qualifiers: Site of cellulitis: extremity Site of cellulitis of extremity: lower extremity Laterality: unspecified laterality Qualified Code(s): L03.119 - Cellulitis of unspecified part of limb (8) Hypomagnesemia Current Visit: Yes Status: Acute (9) Acute kidney injury Current Visit: Yes Status: Acute (10) Generalized weakness Current Visit: Yes Status: Acute Assessment and plan: generalized weakness in setting of chronic alcohol intake and poor nutrition status, drowsiness, decreased dose of gabapentin. avoid opiates. continue with PT. recommended placement ECF - Subjective Interval history: seen and examined, draowsy, receied ativan last night chronic active smoker. drinks beer daily, just prior to arrival. - Constitutional Vitals: Temp Pulse Resp BP Pulse Ox 97.4 F L 84 28 111/76 93 07/11/16 16:02 07/11/16 16:02 07/11/16 16:42 07/11/16 16:02 07/11/16 16:42 General appearance: Present: A&O X 2, answers questions appropriately Exam: mod distress, tachy[penic. - Head Head exam: Present: atraumatic, normocephalic - Eye Eye exam: Present: PERRL, conjuntiva pink, sclera anicteric Pupils: Present: PERRL - Neck Neck exam general surgery: Present: supple, trachea midline. Absent: lymphadenopathy - Respiratory Respiratory exam: Present: decreased breath sounds. Absent: accessory muscle use, rales, rhonchi, wheezes - Cardiovascular Cardiovascular exam: Present: RRR, +S1, +S2. Absent: diastolic murmur, gallop, rubs, systolic murmur - GI/Abdominal GI/Abdominal exam: Present: normal bowel sounds, soft, no peritoneal signs. Absent: distended, tenderness - Extremities Exam Extremities exam: Present: warm, radial pulses palpable and symetrical. Absent : calf tenderness, cyanotic, pedal edema - Neurological Exam Neurological exam: Present: CN II-XII intact, oriented X3, no focal deficits. Absent: pronater drift, facial droop, speech deficit - Skin Skin exam: Present: dry, intact Internal Medicine: Result - Labs CBC & Chem 7: 07/11/16 06:32 07/11/16 06:37 Labs: Short CBC 07/11/16 Range/Units 06:32 WBC 11.3 H D (4.3-11.1) K/mcL Hgb 12.4 L (12.9-16.9) g/dL Hct 39.7 (37.5-50.1) % Plt Count 250 (140-400) K/mcL Neutrophils # 8.9 (1.6-8.9) K/mcL BMP 07/11/16 06:37 Sodium 145 Potassium 4.2 Chloride 104 Carbon Dioxide 31 H BUN 10 Creatinine 1.10 Glucose 93 Calcium 8.9 Liver Function 07/11/16 Range/Units 06:37 Total Bilirubin 0.7 (0.2-1.2) mg/dL Direct Bilirubin 0.3 (0.0-0.5) mg/dL AST 34 (5-34) Units/L ALT 23 (0-55) Units/L Alkaline Phosphatase 76 (38-126) Units/L Albumin 2.6 L (3.5-5.0) g/dL - ABG Interpretation ABG results: ABG ABG pH 7.39 pH Units (7.32-7.45) 07/11/16 13:50 ABG pCO2 63 mmHg (35-45) H 07/11/16 13:50 ABG pO2 62 mmHg (85-104) L 07/11/16 13:50 ABG O2 Saturation 91 % (95-98) L 07/11/16 13:50 PT/INR, D-dimer PT 13.9 Seconds (9.4-12.1) H 07/09/16 07:32 - Impressions Impressions Chest X-Ray 07/11/16 09:19 IMPRESSION: 1. Low lung volumes. 2. Enlarged cardiac silhouette with right-sided pleural effusion and right basilar atelectasis. 3. Prominence of the pulmonary vasculature with minimal patchy opacification bilaterally possibly representing pulmonary edema. D/ / Nabeel Kan MD / Nabeel Kan MD Interpreting Provider: Nabeel Kan MD Consult Discharge Plan - Plan Referrals: Tootie Montano CNP [Primary Care Provider] - 07/19/16 1:15 pm ()
[2016-07-12] MEDS: Ipratropium/Albuterol Neb 3 ML IH SCH ×4 (03:49→21:38)
[2016-07-12] MEDS: Vancomycin 1,000 MG in D5% in Water 250 ML IVPB SCH ×2 (04:06→17:09)
[2016-07-12 05:23] LABS: Basophils # 0.1 K/mcL (0.0-0.2); Basophils % 0.5 %; Eosinophils # 0.5 K/mcL (0.0-0.6); Eosinophils % 4.5 %; Hematocrit 41.1 % (37.5-50.1); Hemoglobin 12.8 g/dL (12.9-16.9); Immature Granulocytes % 0.6 % (0-4); Lymphocytes # 1.3 K/mcL (0.6-4.6); Lymphocytes % 12.4 %; Mean Corpuscular HGB Conc 31.1 g/dL (31.6-35.5); Mean Corpuscular Hemoglobin 29.4 pg (28.0-33.3); Mean Corpuscular Volume 94.3 fL (83.0-100.0); Mean Platelet Volume 9.2 fL (9.4-12.4); Monocytes # 0.7 K/mcL (0.0-1.3); Neutrophils # 8.2 K/mcL (1.6-8.9); Platelet Count 244 K/mcL (140-400); Red Blood Count 4.36 M/mcL (4.19-5.50)
[2016-07-12 05:42] LABS: Alanine Aminotransferase 23 Units/L (0-55); Albumin 2.6 g/dL (3.5-5.0); Albumin/Globulin Ratio 0.6 (1.1-2.2); Alkaline Phosphatase 78 Units/L (38-126); Aspartate Amino Transferase 26 Units/L (5-34); BUN/Creatinine Ratio 11 (6-26); Bilirubin,Direct 0.5 mg/dL (0.0-0.5); Bilirubin,Indirect 0.3 mg/dL (0.0-1.2); Bilirubin,Total 0.8 mg/dL (0.2-1.2); Blood Urea Nitrogen 13 mg/dL (8-26); Calcium 9.2 mg/dL (8.6-10.8); Carbon Dioxide 34 mEq/L (19-29); Chloride 103 mEq/L (98-109); Globulin 4.2 g/dL (2.4-3.5); Glucose 86 mg/dL (70-99); Osmolality,Calculated 295 (280-300); Potassium 4.4 mEq/L (3.5-4.5); Sodium 143 mEq/L (136-145); Total Protein 6.8 g/dL (6.0-8.3); eGFR For African Americans > 60 (> 60); eGFR For Non-African Americans > 60 (> 60)
[2016-07-12] MEDS: *HR* Enoxaparin 40 MG/0.4 ML SYRINGE SQ SCH (05:45)
[2016-07-12] MEDS: Piperacillin/Tazobactam 3.375 GM in D5% in Water (Mini-Bag+) 100 ML IVPB SCH ×4 (08:20→23:35)
[2016-07-12] MEDS: Aspirin 81 MG TAB.CHEW PO SCH (08:21)
[2016-07-12] MEDS: Gabapentin 300 MG CAPSULE PO SCH ×3 (08:21→23:06)
[2016-07-12] MEDS: Magnesium Oxide 400 MG TABLET PO SCH ×2 (08:21→23:07)
[2016-07-12] MEDS: Thiamine (B-1) 100 MG TABLET PO SCH (08:21)
[2016-07-12] MEDS: Folic Acid 1 MG TABLET PO SCH (08:21)
[2016-07-12] MEDS: Vitamin B Complex/Vit C/Vit E 1 EACH TABLET PO SCH (08:21)
[2016-07-12] MEDS: Lactobacillus 1 EACH CAP.SPRINK PO SCH ×2 (08:21→23:06)
--- NOTE | 2016-07-12 12:05 | Internal Med Progress Note ---
Date of Encounter: 07/12/16 Time of Encounter: 12:05 - Subjective Interval history: Pt seen and examined at bedside. Sleeping and difficult to arouse. However as per nursing reports, he has been agitated and falling out of bed. He is arousable but very somnolent. He has only been oriented to self and place but not to time. ABG consistent with hypercapnia which can be contributing to patient's somnolent mental status. Patient has history of noncompliance and has been reported to have mental status that waxes and wanes. Will closely monitor. - Assessment and plan (1) Altered mental status Current Visit: Yes Status: Acute Assessment and plan: Multifactorial, likely worsened with hypercapnia Will continue bipap support and closely monitor s/p Thoracentesis today (07/12/16) will closely monitor Hold all sedative agents (Librium, Gabapentin, Ativan) Qualifiers: Altered mental status type: transient alteration of awareness Qualified Code(s): R40.4 - Transient alteration of awareness (2) Hypernatremia Current Visit: Yes Status: Acute Resolved (3) Pleural effusion, right Current Visit: Yes Status: Acute Assessment and plan: s/p thoracentesis on admission, fluid consistent with exudate, ct was obtained , which also revealed effusion, infiltrates and a residual pneumothroax, pulmonology consulted in light of exudate fluid, pulmonology input noted Pt underwent recurrent thoracentesis today (07/12/16), will f/u pleural fluid analysis Will continue empiric IV abx at this time Pharmacist to dose Vancomycin and monitor trough continue zosyn. will de-escalate therapy as per clinical response and culture results (4) Alcoholic liver disease Current Visit: Yes Status: Chronic (5) Essential hypertension Current Visit: Yes Status: Chronic BP within acceptable range continue home medications (6) Pneumonia Current Visit: No Status: Inactive Assessment and plan: see above. Qualifiers: Pneumonia type: aspiration pneumonia Aspiration pneumonia type: due to regurgitated food Laterality: right Lung location: lower lobe of lung Qualified Code(s): J69.0 - Pneumonitis due to inhalation of food and vomit (7) Cellulitis Current Visit: Yes Status: Acute Assessment and plan: Resolved Qualifiers: Site of cellulitis: extremity Site of cellulitis of extremity: lower extremity Laterality: unspecified laterality Qualified Code(s): L03.119 - Cellulitis of unspecified part of limb (8) Hypomagnesemia Current Visit: Yes Status: Acute Resolved continue to monitor electrolytes and replace as needed (9) Acute kidney injury Current Visit: Yes Status: Resolved (10) Generalized weakness Current Visit: Yes Status: Acute Assessment and plan: generalized weakness in setting of chronic alcohol intake and poor nutrition status, drowsiness, decreased dose of gabapentin. avoid opiates. continue with PT. recommended placement ECF - Constitutional Vitals: Temp Pulse Resp BP Pulse Ox 98.6 F 82 17 159/78 99 07/12/16 07:29 07/12/16 07:29 07/12/16 07:29 07/12/16 07:29 07/12/16 07:29 General appearance: Present: A&O X 2, obese, answers questions appropriately - Head Head exam: Present: atraumatic, normocephalic - Eye Eye exam: Present: normal appearance, conjuntiva pink, sclera anicteric - Respiratory Respiratory exam: Present: CTAB. Absent: accessory muscle use, rales, rhonchi, wheezes - Cardiovascular Cardiovascular exam: Present: RRR, +S1, +S2. Absent: diastolic murmur, gallop, rubs, systolic murmur - GI/Abdominal GI/Abdominal exam: Present: normal bowel sounds, soft, no peritoneal signs. Absent: distended, tenderness - Extremities Exam Extremities exam: Present: warm, radial pulses palpable and symetrical. Absent : calf tenderness, cyanotic, pedal edema Internal Medicine: Result - Labs CBC & Chem 7: 07/12/16 05:05 07/12/16 05:05 Labs: Short CBC 07/12/16 Range/Units 05:05 WBC 10.8 (4.3-11.1) K/mcL Hgb 12.8 L (12.9-16.9) g/dL Hct 41.1 (37.5-50.1) % Plt Count 244 (140-400) K/mcL Neutrophils # 8.2 (1.6-8.9) K/mcL BMP 07/12/16 05:05 Sodium 143 Potassium 4.4 Chloride 103 Carbon Dioxide 34 H BUN 13 Creatinine 1.16 Glucose 86 Calcium 9.2 Liver Function 07/12/16 Range/Units 05:05 Total Bilirubin 0.8 (0.2-1.2) mg/dL Direct Bilirubin 0.5 (0.0-0.5) mg/dL AST 26 (5-34) Units/L ALT 23 (0-55) Units/L Alkaline Phosphatase 78 (38-126) Units/L Albumin 2.6 L (3.5-5.0) g/dL - ABG Interpretation ABG results: ABG ABG pH 7.39 pH Units (7.32-7.45) 07/11/16 13:50 ABG pCO2 63 mmHg (35-45) H 07/11/16 13:50 ABG pO2 62 mmHg (85-104) L 07/11/16 13:50 ABG O2 Saturation 91 % (95-98) L 07/11/16 13:50 PT/INR, D-dimer PT 13.9 Seconds (9.4-12.1) H 07/09/16 07:32 - Impressions Impressions Thoracentesis Ultrasound 07/12/16 00:00 IMPRESSION: Successful ultrasound guided thoracentesis. D/ / Waldo Pressley MD / Waldo Pressley MD Interpreting Provider: Waldo Pressley MD Chest X-Ray 07/12/16 09:10 IMPRESSION: No pneumothorax status post thoracentesis. Small right pleural effusion, mildly improved from prior exam. Mildly improved aeration to right lung base with still persistent mild bibasilar opacities, right worse than left, which may relate to atelectasis or infiltrates. D/ : / 07/12/2016 09:56:04 Thomas Richey MD / Ana Samano Interpreting Provider: Thomas Richey MD Consult Discharge Plan - Plan Referrals: Tootie Montano CNP [Primary Care Provider] - 07/19/16 1:15 pm ()
[2016-07-12 12:56] LABS: Glucose,Pleural Fluid 72 mg/dL (No Ref Range); LDH,Pleural Fluid 229 Units/L (No Ref Range)
[2016-07-12 12:57] LABS: Total Protein,Pleural Fluid 2.5 g/dL (No Ref Range)
[2016-07-12 13:13] LABS: ABG Base Excess 11.3 mEq/L (-2.0 to 3.0); ABG HCO3 39.7 mEQ/L (21-27); ABG Oxygen Saturation 94 % (95-98); ABG PH 7.35 pH Units (7.32-7.45); ABG PO2 76 mmHg (85-104); ABG TCO2 41.9 mEq/L (20-26)
[2016-07-12 13:16] LABS: ABG PCO2 72 mmHg (35-45); Blood Gas FiO2 32 %
[2016-07-12 13:32] LABS: Appearance of Pleural Fl Cloudy (Clear)
[2016-07-12 16:30] LABS: ABG Base Excess 10.2 mEq/L (-2.0 to 3.0); ABG HCO3 36.8 mEQ/L (21-27); ABG Oxygen Saturation 95 % (95-98); ABG PCO2 58 mmHg (35-45); ABG PH 7.41 pH Units (7.32-7.45); ABG PO2 74 mmHg (85-104); ABG TCO2 38.6 mEq/L (20-26)
[2016-07-12 16:32] LABS: Blood Gas FiO2 35 %
[2016-07-13] MEDS: *HR* LORazepam 2 MG/ML VIAL IVP PRN (01:36)
[2016-07-13] MEDS: Ipratropium/Albuterol Neb 3 ML IH SCH ×4 (04:04→21:42)
[2016-07-13 04:16] LABS: Basophils # 0.1 K/mcL (0.0-0.2); Basophils % 0.6 %; Eosinophils # 0.6 K/mcL (0.0-0.6); Eosinophils % 6.7 %; Hematocrit 41.4 % (37.5-50.1); Hemoglobin 12.8 g/dL (12.9-16.9); Immature Granulocytes % 0.6 % (0-4); Lymphocytes % 10.2 %; Mean Corpuscular HGB Conc 30.9 g/dL (31.6-35.5); Mean Corpuscular Hemoglobin 29.4 pg (28.0-33.3); Mean Corpuscular Volume 95.2 fL (83.0-100.0); Mean Platelet Volume 9.3 fL (9.4-12.4); Monocytes # 0.6 K/mcL (0.0-1.3); Monocytes % 6.2 %; Neutrophils # 7.2 K/mcL (1.6-8.9); Platelet Count 249 K/mcL (140-400); Red Blood Count 4.35 M/mcL (4.19-5.50); Red Cell Distribution Width 18.6 % (11.5-14.5); Segmented Neutrophils % 75.7 %
[2016-07-13 04:28] LABS: BUN/Creatinine Ratio 11 (6-26); Blood Urea Nitrogen 13 mg/dL (8-26); Carbon Dioxide 33 mEq/L (19-29); Chloride 102 mEq/L (98-109); Glucose 89 mg/dL (70-99); Magnesium 1.4 mg/dL (1.6-2.6); Osmolality,Calculated 298 (280-300); Phosphorous 3.5 mg/dL (2.3-4.7); Potassium 3.6 mEq/L (3.5-4.5); Sodium 144 mEq/L (136-145); eGFR For African Americans > 60 (> 60); eGFR For Non-African Americans > 60 (> 60)
[2016-07-13] MEDS: Vancomycin 1,000 MG in D5% in Water 250 ML IVPB SCH ×2 (04:29→15:57)
[2016-07-13] MEDS: *HR* Enoxaparin 40 MG/0.4 ML SYRINGE SQ SCH (05:37)
[2016-07-13] MEDS ORDERED: Magnesium Sulfate 1 GM in D5% in Water 100 ML IVPB ONE (07:57)
--- NOTE | 2016-07-13 08:32 | Pulmonology Progress Note ---
Date of Encounter: 07/13/16 Time of Encounter: 08:23 Assessment and Plan (1) Pleural effusion, right Current Visit: Yes Status: Acute Unclear etiology of this loculated right-sided pleural effusion. Pleural fluid analysis reveals a weakly exudative (protein gradient more consistent with transudate) lymphocyte predominant effusion. In this clinical setting, I suspect he had a prior parapneumonic effusion, possibly related to aspiration from alcoholism. There may now be a component of trapped lung, as CT scan of the chest on 07/02/2016 following his first thoracentesis revealed that the lung did not completely re-expand. A malignant effusion or tuberculosis effusion seems less likely based on the fact this is only weakly exudative. Other causes of a lymphocyte predominant effusion such as rheumatoid effusion, sarcoidosis, yellow nail syndrome, etc. all seem less likely clinically. * Follow-up pleural fluid cytology * I would not recommend any further intervention at this time * Recommend repeat chest x-ray in 6-8 weeks to ensure stability No further recommendations from a pulmonary standpoint. We will sign off. Please call with questions. Subjective Principal diagnosis: pleural effusion Interval history: Patient underwent repeat thoracentesis 07/12/2016. Unable to obtain history or review of systems as the patient is mumbling incoherently at the time of my exam. Objective PUL Vital signs: Last Vital Signs Temp 98.3 F 07/13/16 07:34 Pulse 84 07/13/16 07:34 Resp 16 07/13/16 07:34 BP 124/81 07/13/16 07:34 Pulse Ox 99 07/13/16 07:34 General: no acute distress, confused and mumbling Eyes: nonicteric ENT: BiPAP mask in place Neck: supple, no lymphadenopathy Lungs: Coarse bilateral breath sounds Cardiovascular: regular rate and rhythm Gastrointestinal: normoactive bowel sounds, soft, non-tender, non-distended Integumentary: normal Extremities: no cyanosis, no edema Musculoskeletal: no deformities Neuro: Interactive with caregivers but confused and mumbling, non-focal exam Psych: Deferred secondary to mental status Results - Laboratory Findings CBC and BMP: 07/13/16 03:59 07/13/16 03:59 ABG ABG pH 7.41 pH Units (7.32-7.45) 07/12/16 16:11 ABG pCO2 58 mmHg (35-45) H 07/12/16 16:11 ABG pO2 74 mmHg (85-104) L 07/12/16 16:11 ABG O2 Saturation 95 % (95-98) 07/12/16 16:11 PT/INR, D-dimer PT 13.9 Seconds (9.4-12.1) H 07/09/16 07:32 Abnormal lab findings: Abnormal lab results Hgb 12.8 g/dL (12.9-16.9) L 07/13/16 03:59 MCHC 30.9 g/dL (31.6-35.5) L 07/13/16 03:59 RDW 18.6 % (11.5-14.5) H 07/13/16 03:59 MPV 9.3 fL (9.4-12.4) L 07/13/16 03:59 Platelet Estimate Decreased (Normal) L 07/04/16 03:43 Large Platelets Present (Not Present) A 07/04/16 03:43 Polychromasia 1+ (Not Present) A 07/04/16 03:43 Anisocytosis 1+ (Not Present) A 07/04/16 03:43 Macrocytosis Present (Not Present) A 07/04/16 03:43 PT 13.9 Seconds (9.4-12.1) H 07/09/16 07:32 ABG pCO2 58 mmHg (35-45) H 07/12/16 16:11 ABG pO2 74 mmHg (85-104) L 07/12/16 16:11 ABG HCO3 36.8 mEQ/L (21-27) H 07/12/16 16:11 ABG Total CO2 38.6 mEq/L (20-26) H 07/12/16 16:11 ABG Base Excess 10.2 mEq/L (-2.0 to 3.0) H 07/12/16 16:11 Carbon Dioxide 33 mEq/L (19-29) H 07/13/16 03:59 Magnesium 1.4 mg/dL (1.6-2.6) L 07/13/16 03:59 Albumin 2.6 g/dL (3.5-5.0) L 07/12/16 05:05 Globulin 4.2 g/dL (2.4-3.5) H 07/12/16 05:05 Albumin/Globulin Ratio 0.6 (1.1-2.2) L 07/12/16 05:05 Pleural Appearance Cloudy (Clear) A 07/12/16 09:16 Pleural RBC 0.020 M/mcL (0.000-0.002) H 07/12/16 09:16 - Microbiology Findings Microbiology Findings: Microbiology, Last 48 Hours 07/12/16 09:16 Body Fluid Culture - Preliminary Pleural Fluid - Clinical Findings Intake & Output: Intake & Output 07/12/16 07/13/16 07/13/16 23:59 07:59 15:59 Intake Total 600 / 600 350 / 350 Output Total 500 / 500 Balance 600 / 600 -150 / -150 Weight 100.868 kg Consult Discharge Plan - Plan Referrals: Tootie Montano CNP [Primary Care Provider] - 07/19/16 1:15 pm ()
[2016-07-13] MEDS: Piperacillin/Tazobactam 3.375 GM in D5% in Water (Mini-Bag+) 100 ML IVPB SCH ×3 (09:20→23:44)
[2016-07-13] MEDS: Vitamin B Complex/Vit C/Vit E 1 EACH TABLET PO SCH (09:22)
[2016-07-13] MEDS: Magnesium Oxide 400 MG TABLET PO SCH ×2 (09:23→23:45)
[2016-07-13] MEDS: Folic Acid 1 MG TABLET PO SCH (09:23)
[2016-07-13] MEDS: Lactobacillus 1 EACH CAP.SPRINK PO SCH ×2 (09:23→23:45)
[2016-07-13] MEDS: Aspirin 81 MG TAB.CHEW PO SCH (09:23)
[2016-07-13] MEDS: Gabapentin 300 MG CAPSULE PO SCH (09:23)
[2016-07-13] MEDS: Thiamine (B-1) 100 MG TABLET PO SCH (09:23)
[2016-07-13] MEDS ORDERED: *HR* LORazepam 2 MG/ML VIAL IVP PRN (12:30)
--- NOTE | 2016-07-13 15:13 | Internal Med Progress Note ---
Date of Encounter: 07/13/16 Time of Encounter: 15:10 - Subjective Interval history: Pt seen and examined at bedside. Was awake and alert this morning and noted to have depressed mental status after he received his morning Gabapentin dose. Patient did not receive his last night's dose of gabapentin and librium and his mental status was improved. Currently saturating well on bipap and arousable but somnolent. Discontinued Librium and placed Gabapentin on hold given mental status. - Assessment and plan (1) Altered mental status Current Visit: Yes Status: Acute Assessment and plan: Multifactorial Hypercapnia improving Hold sedative agents (hold Gabapentin and d/c Librium) Will continue bipap support and closely monitor s/p Thoracentesis (07/12/16) will closely monitor Hold all sedative agents (Librium, Gabapentin, Ativan) Qualifiers: Altered mental status type: transient alteration of awareness Qualified Code(s): R40.4 - Transient alteration of awareness (2) Hypernatremia Current Visit: Yes Status: Acute Resolved (3) Pleural effusion, right Current Visit: Yes Status: Acute Assessment and plan: s/p thoracentesis on admission, fluid consistent with exudate, ct was obtained , which also revealed effusion, infiltrates and a residual pneumothroax, pulmonology consulted in light of exudate fluid, pulmonology input noted Pt underwent recurrent thoracentesis (07/12/16) Will continue empiric IV abx at this time Pharmacist to dose Vancomycin and monitor trough continue zosyn. will de-escalate therapy as per clinical response and culture results Pleural fluid analysis consistent with exudative effusion will f/u cultures (4) Alcoholic liver disease Current Visit: Yes Status: Chronic (5) Essential hypertension Current Visit: Yes Status: Chronic BP within acceptable range continue home medications (6) Pneumonia Current Visit: No Status: Inactive Assessment and plan: see above. Qualifiers: Pneumonia type: aspiration pneumonia Aspiration pneumonia type: due to regurgitated food Laterality: right Lung location: lower lobe of lung Qualified Code(s): J69.0 - Pneumonitis due to inhalation of food and vomit (7) Cellulitis Current Visit: Yes Status: Acute Assessment and plan: Resolved Qualifiers: Site of cellulitis: extremity Site of cellulitis of extremity: lower extremity Laterality: unspecified laterality Qualified Code(s): L03.119 - Cellulitis of unspecified part of limb (8) Hypomagnesemia Current Visit: Yes Status: Acute Mg supplemented continue to monitor electrolytes and replace as needed (9) Acute kidney injury Current Visit: Yes Status: Resolved (10) Generalized weakness Current Visit: Yes Status: Acute Assessment and plan: generalized weakness in setting of chronic alcohol intake and poor nutrition status, drowsiness, hold gabapentin. Avoid sedative agents continue with PT. recommended placement ECF - Constitutional Vitals: Temp Pulse Resp BP Pulse Ox 98.4 F 79 16 119/70 98 07/13/16 11:45 07/13/16 11:45 07/13/16 11:45 07/13/16 11:45 07/13/16 11:45 General appearance: Present: A&O X 2, obese, answers questions appropriately - Head Head exam: Present: atraumatic, normocephalic - Eye Eye exam: Present: normal appearance, conjuntiva pink, sclera anicteric - Respiratory Respiratory exam: Present: CTAB. Absent: respiratory distress, wheezes - Cardiovascular Cardiovascular exam: Present: RRR, +S1, +S2 - GI/Abdominal GI/Abdominal exam: Present: normal bowel sounds, soft. Absent: distended, tenderness - Extremities Exam Extremities exam: Present: warm, radial pulses palpable and symetrical. Absent : calf tenderness, pedal edema - Neurological Exam Neurological exam: Present: alert Internal Medicine: Result - Labs CBC & Chem 7: 07/13/16 03:59 07/13/16 03:59 Labs: Short CBC 07/13/16 Range/Units 03:59 WBC 9.6 (4.3-11.1) K/mcL Hgb 12.8 L (12.9-16.9) g/dL Hct 41.4 (37.5-50.1) % Plt Count 249 (140-400) K/mcL Neutrophils # 7.2 (1.6-8.9) K/mcL BMP 07/13/16 03:59 Sodium 144 Potassium 3.6 Chloride 102 Carbon Dioxide 33 H BUN 13 Creatinine 1.18 Glucose 89 Calcium 9.0 - ABG Interpretation ABG results: ABG ABG pH 7.41 pH Units (7.32-7.45) 07/12/16 16:11 ABG pCO2 58 mmHg (35-45) H 07/12/16 16:11 ABG pO2 74 mmHg (85-104) L 07/12/16 16:11 ABG O2 Saturation 95 % (95-98) 07/12/16 16:11 PT/INR, D-dimer PT 13.9 Seconds (9.4-12.1) H 07/09/16 07:32 Consult Discharge Plan - Plan Referrals: Tootie Montano CNP [Primary Care Provider] - 07/19/16 1:15 pm ()
[2016-07-13] MEDS: Gabapentin 100 MG CAPSULE PO SCH ×2 (15:52→23:45)
[2016-07-14] MEDS: Vancomycin 1,000 MG in D5% in Water 250 ML IVPB SCH ×2 (04:01→17:12)
[2016-07-14] MEDS: Ipratropium/Albuterol Neb 3 ML IH SCH ×4 (04:04→21:33)
[2016-07-14] MEDS: *HR* Enoxaparin 40 MG/0.4 ML SYRINGE SQ SCH (05:12)
[2016-07-14 05:51] LABS: Basophils # 0.1 K/mcL (0.0-0.2); Basophils % 0.9 %; Eosinophils # 0.6 K/mcL (0.0-0.6); Eosinophils % 7.9 %; Hematocrit 38.9 % (37.5-50.1); Hemoglobin 12.4 g/dL (12.9-16.9); Immature Granulocytes % 0.5 % (0-4); Lymphocytes # 1.2 K/mcL (0.6-4.6); Lymphocytes % 14.6 %; Mean Corpuscular HGB Conc 31.9 g/dL (31.6-35.5); Mean Corpuscular Hemoglobin 29.3 pg (28.0-33.3); Mean Platelet Volume 9.7 fL (9.4-12.4); Monocytes # 0.7 K/mcL (0.0-1.3); Monocytes % 8.4 %; Neutrophils # 5.5 K/mcL (1.6-8.9); Platelet Count 257 K/mcL (140-400); Red Blood Count 4.23 M/mcL (4.19-5.50); Red Cell Distribution Width 18.4 % (11.5-14.5); Segmented Neutrophils % 67.7 %
[2016-07-14 06:12] LABS: BUN/Creatinine Ratio 9 (6-26); Blood Urea Nitrogen 10 mg/dL (8-26); Calcium 8.9 mg/dL (8.6-10.8); Carbon Dioxide 30 mEq/L (19-29); Chloride 102 mEq/L (98-109); Glucose 99 mg/dL (70-99); Magnesium 1.4 mg/dL (1.6-2.6); Osmolality,Calculated 295 (280-300); Phosphorous 3.6 mg/dL (2.3-4.7); Potassium 3.4 mEq/L (3.5-4.5); Sodium 143 mEq/L (136-145); eGFR For African Americans > 60 (> 60); eGFR For Non-African Americans > 60 (> 60)
[2016-07-14] MEDS ORDERED: Gabapentin 100 MG CAPSULE PO SCH (08:07)
[2016-07-14] MEDS: Piperacillin/Tazobactam 3.375 GM in D5% in Water (Mini-Bag+) 100 ML IVPB SCH ×4 (09:14→23:50)
[2016-07-14] MEDS: Magnesium Sulfate 1 GM in D5% in Water 100 ML IVPB ONE ×2 (09:27→12:00)
[2016-07-14] MEDS: Folic Acid 1 MG TABLET PO SCH (09:28)
[2016-07-14] MEDS: Magnesium Oxide 400 MG TABLET PO SCH ×2 (09:28→20:33)
[2016-07-14] MEDS: Thiamine (B-1) 100 MG TABLET PO SCH (09:28)
[2016-07-14] MEDS: Aspirin 81 MG TAB.CHEW PO SCH (09:28)
[2016-07-14] MEDS: Lactobacillus 1 EACH CAP.SPRINK PO SCH ×2 (09:28→20:33)
[2016-07-14] MEDS: Vitamin B Complex/Vit C/Vit E 1 EACH TABLET PO SCH (09:28)
[2016-07-14] MEDS ORDERED: Haloperidol Lactate 5 MG/ML VIAL IM PRN (12:53)
--- NOTE | 2016-07-14 12:53 | Internal Med Progress Note ---
Date of Encounter: 07/14/16 Time of Encounter: 12:52 - Subjective Interval history: Pt seen and examined at bedside. Was awake, alert, and agitated this morning, pulling out IV lines and being hostile towards the staff due to which he was given Ativan IV and pt has been somnolent since then. He is arousable to tactile stimulation but remains somnolent. - Assessment and plan (1) Altered mental status Current Visit: Yes Status: Acute Assessment and plan: Multifactorial Hypercapnia improving Discontinue Gabapentin and Librium Will continue bipap support and closely monitor s/p Thoracentesis (07/12/16) will closely monitor Hold all sedative agents (Librium, Gabapentin, Ativan) Qualifiers: Altered mental status type: transient alteration of awareness Qualified Code(s): R40.4 - Transient alteration of awareness (2) Hypernatremia Current Visit: Yes Status: Acute Resolved (3) Pleural effusion, right Current Visit: Yes Status: Acute Assessment and plan: s/p thoracentesis on admission, fluid consistent with exudate, ct was obtained , which also revealed effusion, infiltrates and a residual pneumothroax, pulmonology consulted in light of exudate fluid, pulmonology input noted Pt underwent recurrent thoracentesis (07/12/16) Will continue empiric IV abx at this time Pharmacist to dose Vancomycin and monitor trough continue zosyn. will de-escalate therapy as per clinical response and culture results Pleural fluid analysis consistent with exudative effusion will f/u cultures (4) Alcoholic liver disease Current Visit: Yes Status: Chronic (5) Essential hypertension Current Visit: Yes Status: Chronic BP within acceptable range continue home medications (6) Pneumonia Current Visit: No Status: Inactive Assessment and plan: see above. Qualifiers: Pneumonia type: aspiration pneumonia Aspiration pneumonia type: due to regurgitated food Laterality: right Lung location: lower lobe of lung Qualified Code(s): J69.0 - Pneumonitis due to inhalation of food and vomit (7) Cellulitis Current Visit: Yes Status: Acute Assessment and plan: Resolved Qualifiers: Site of cellulitis: extremity Site of cellulitis of extremity: lower extremity Laterality: unspecified laterality Qualified Code(s): L03.119 - Cellulitis of unspecified part of limb (8) Hypomagnesemia Current Visit: Yes Status: Acute Mg supplemented continue to monitor electrolytes and replace as needed Hypokalemia: K supplemented (9) Acute kidney injury Current Visit: Yes Status: Resolved (10) Generalized weakness Current Visit: Yes Status: Acute Assessment and plan: generalized weakness in setting of chronic alcohol intake and poor nutrition status, drowsiness, discontinued gabapentin . Avoid sedative agents continue with PT. recommended placement ECF - Constitutional Vitals: Temp Pulse Resp BP Pulse Ox 98.3 F 75 18 130/83 93 07/14/16 12:38 07/14/16 12:38 07/14/16 12:38 07/14/16 12:38 07/14/16 12:38 General appearance: Present: A&O X 2 (somnolent but arousable ), obese, answers questions appropriately - Head Head exam: Present: atraumatic, normocephalic - Eye Eye exam: Present: normal appearance, conjuntiva pink, sclera anicteric - Respiratory Respiratory exam: Present: CTAB. Absent: respiratory distress, wheezes - Cardiovascular Cardiovascular exam: Present: RRR, +S1, +S2. Absent: diastolic murmur, gallop, rubs, systolic murmur - GI/Abdominal GI/Abdominal exam: Present: normal bowel sounds, soft, no peritoneal signs. Absent: distended, tenderness - Extremities Exam Extremities exam: Present: warm, radial pulses palpable and symetrical. Absent : calf tenderness, cyanotic, pedal edema Internal Medicine: Result - Labs CBC & Chem 7: 07/14/16 05:26 07/14/16 05:26 Labs: Short CBC 07/14/16 Range/Units 05:26 WBC 8.1 (4.3-11.1) K/mcL Hgb 12.4 L (12.9-16.9) g/dL Hct 38.9 (37.5-50.1) % Plt Count 257 (140-400) K/mcL Neutrophils # 5.5 (1.6-8.9) K/mcL BMP 07/14/16 05:26 Sodium 143 Potassium 3.4 L Chloride 102 Carbon Dioxide 30 H BUN 10 Creatinine 1.10 Glucose 99 Calcium 8.9 - ABG Interpretation ABG results: ABG ABG pH 7.41 pH Units (7.32-7.45) 07/12/16 16:11 ABG pCO2 58 mmHg (35-45) H 07/12/16 16:11 ABG pO2 74 mmHg (85-104) L 07/12/16 16:11 ABG O2 Saturation 95 % (95-98) 07/12/16 16:11 PT/INR, D-dimer PT 13.9 Seconds (9.4-12.1) H 07/09/16 07:32 Consult Discharge Plan - Plan Referrals: Tootie Montano, ACCOUNT INSTALLER [Primary Care Provider] - 07/19/16 1:15 pm ()
[2016-07-15] MEDS ORDERED: *HR* LORazepam 2 MG/ML VIAL IVP ONE (02:41)
[2016-07-15] MEDS: Ipratropium/Albuterol Neb 3 ML IH SCH ×4 (03:39→21:40)
[2016-07-15 03:52] LABS: ABG Base Excess 11.7 mEq/L (-2.0 to 3.0); ABG Oxygen Saturation 93 % (95-98); ABG PCO2 56 mmHg (35-45); ABG PH 7.44 pH Units (7.32-7.45); ABG PO2 65 mmHg (85-104); ABG TCO2 39.7 mEq/L (20-26); Blood Gas Liter Flow 4 L/MIN
[2016-07-15 03:53] LABS: Blood Gas FiO2 36 %
[2016-07-15 04:13] LABS: Basophils # 0.1 K/mcL (0.0-0.2); Basophils % 0.7 %; Eosinophils # 0.5 K/mcL (0.0-0.6); Eosinophils % 6.6 %; Hematocrit 38.5 % (37.5-50.1); Immature Granulocytes % 0.4 % (0-4); Lymphocytes # 1.2 K/mcL (0.6-4.6); Lymphocytes % 15.7 %; Mean Corpuscular HGB Conc 31.2 g/dL (31.6-35.5); Mean Corpuscular Hemoglobin 29.6 pg (28.0-33.3); Mean Corpuscular Volume 94.8 fL (83.0-100.0); Mean Platelet Volume 9.3 fL (9.4-12.4); Monocytes # 0.7 K/mcL (0.0-1.3); Monocytes % 9.4 %; Neutrophils # 5.1 K/mcL (1.6-8.9); Platelet Count 286 K/mcL (140-400); Red Blood Count 4.06 M/mcL (4.19-5.50); Segmented Neutrophils % 67.2 %
[2016-07-15 04:29] LABS: BUN/Creatinine Ratio 7 (6-26); Blood Urea Nitrogen 9 mg/dL (8-26); Calcium 8.7 mg/dL (8.6-10.8); Carbon Dioxide 29 mEq/L (19-29); Chloride 104 mEq/L (98-109); Glucose 79 mg/dL (70-99); Magnesium 1.8 mg/dL (1.6-2.6); Osmolality,Calculated 292 (280-300); Phosphorous 3.3 mg/dL (2.3-4.7); Potassium 3.8 mEq/L (3.5-4.5); Sodium 142 mEq/L (136-145); eGFR For African Americans > 60 (> 60); eGFR For Non-African Americans 57 (> 60)
[2016-07-15] MEDS: Vancomycin 1,000 MG in D5% in Water 250 ML IVPB SCH (05:10)
[2016-07-15] MEDS: *HR* Enoxaparin 40 MG/0.4 ML SYRINGE SQ SCH (05:30)
[2016-07-15] MEDS ORDERED: Aminoglycoside Consult 1 EACH MC ONE (09:23)
[2016-07-15] MEDS: Vitamin B Complex/Vit C/Vit E 1 EACH TABLET PO SCH (10:17)
[2016-07-15] MEDS: Piperacillin/Tazobactam 3.375 GM in D5% in Water (Mini-Bag+) 100 ML IVPB SCH (10:17)
[2016-07-15] MEDS: Folic Acid 1 MG TABLET PO SCH (10:18)
[2016-07-15] MEDS: Lactobacillus 1 EACH CAP.SPRINK PO SCH ×2 (10:18→21:59)
[2016-07-15] MEDS: Magnesium Oxide 400 MG TABLET PO SCH ×2 (10:18→21:59)
[2016-07-15] MEDS: Aspirin 81 MG TAB.CHEW PO SCH (10:19)
[2016-07-15] MEDS: Thiamine (B-1) 100 MG TABLET PO SCH (10:22)
--- NOTE | 2016-07-15 10:54 | Internal Med Progress Note ---
Date of Encounter: 07/15/16 Time of Encounter: 10:52 - Subjective Interval history: Pt seen and examined at bedside. Pt is awake and alert to self and place but remains confused and disoriented. He is reported of being agitated and combative towards the staff. Has been pulling on Bennett cath and IV lines. Haldol and ativan have failed to provide with appropriate relief. Pt was given one dose of Seroquel 12.5 mg PO this morning and he appears to be calm at this time. Pt is not able to tolerate Librium or Gabapentin as even a low dose causes excessive sedation that patient is only arousable to sternal rubs. Psychiatry consultation requested for agitated and confused behavior/ hallucinations - Assessment and plan (1) Altered mental status Current Visit: Yes Status: Acute Assessment and plan: Multifactorial Hypercapnia improving Discontinued Gabapentin and Librium Will continue bipap support and closely monitor s/p Thoracentesis (07/12/16) will closely monitor Hold all sedative agents (Librium, Gabapentin, Ativan) Received one time dose of Seroquel and pt appears to be calm at this time. Will closely monitor and continue therapy as per pscyhiatry recommendations Concern for Wernicke's encephalopathy given alcohol abuse history Will administer Banana bag x 3 bags and continue Folate and Thiamine supplementation IV thiamine supplementation as per wernicke encephalopathy protocol Qualifiers: Altered mental status type: transient alteration of awareness Qualified Code(s): R40.4 - Transient alteration of awareness (2) Hypernatremia Current Visit: Yes Status: Acute Resolved (3) Pleural effusion, right Current Visit: Yes Status: Acute Assessment and plan: s/p thoracentesis on admission, fluid consistent with exudate, ct was obtained , which also revealed effusion, infiltrates and a residual pneumothroax, pulmonology consulted in light of exudate fluid, pulmonology input noted Pt underwent recurrent thoracentesis (07/12/16) Pt has receiving 14 days of IV abx clinically no signs of infectious etiology present at this time noted to have slight RAMÓN secondary to Vancomcyin will discontinue all antibiotics at this time gentle IV fluid hydration at this time (4) Alcoholic liver disease Current Visit: Yes Status: Chronic (5) Essential hypertension Current Visit: Yes Status: Chronic BP within acceptable range continue home medications (6) Pneumonia Current Visit: No Status: Inactive Assessment and plan: Resolved Qualifiers: Pneumonia type: aspiration pneumonia Aspiration pneumonia type: due to regurgitated food Laterality: right Lung location: lower lobe of lung Qualified Code(s): J69.0 - Pneumonitis due to inhalation of food and vomit (7) Cellulitis Current Visit: Yes Status: Acute Assessment and plan: Resolved Qualifiers: Site of cellulitis: extremity Site of cellulitis of extremity: lower extremity Laterality: unspecified laterality Qualified Code(s): L03.119 - Cellulitis of unspecified part of limb (8) Hypomagnesemia Current Visit: Yes Status: Acute Resolved continue to monitor electrolytes and replace as needed (9) Acute kidney injury Current Visit: Yes Status: Acute Likely drug induced d/c vancomycin continue IV fluids closely monitor (10) Generalized weakness Current Visit: Yes Status: Acute Assessment and plan: generalized weakness in setting of chronic alcohol intake and poor nutrition status, drowsiness, discontinued gabapentin . Avoid sedative agents continue with PT. recommended placement ECF - Constitutional Vitals: Temp Pulse Resp BP Pulse Ox 98.4 F 70 16 141/71 92 07/15/16 04:17 07/15/16 04:17 07/15/16 04:17 07/15/16 04:17 07/15/16 04:17 General appearance: Present: A&O X 2 (alert to self and place ), obese, answers questions appropriately - Head Head exam: Present: atraumatic, normocephalic - Eye Eye exam: Present: normal appearance, conjuntiva pink, sclera anicteric - Respiratory Respiratory exam: Present: CTAB. Absent: accessory muscle use, rales, rhonchi, wheezes - Cardiovascular Cardiovascular exam: Present: RRR, +S1, +S2. Absent: diastolic murmur, gallop, rubs, systolic murmur - GI/Abdominal GI/Abdominal exam: Present: normal bowel sounds, soft, no peritoneal signs. Absent: distended, tenderness - Extremities Exam Extremities exam: Present: warm, radial pulses palpable and symetrical. Absent : calf tenderness, cyanotic, pedal edema - Neurological Exam Neurological exam: Present: alert - Psychiatric Psychiatric exam: Present: agitated Internal Medicine: Result - Labs CBC & Chem 7: 07/15/16 03:58 07/15/16 03:58 Labs: Short CBC 07/15/16 Range/Units 03:58 WBC 7.6 (4.3-11.1) K/mcL Hgb 12.0 L (12.9-16.9) g/dL Hct 38.5 (37.5-50.1) % Plt Count 286 (140-400) K/mcL Neutrophils # 5.1 (1.6-8.9) K/mcL BMP 07/15/16 03:58 Sodium 142 Potassium 3.8 Chloride 104 Carbon Dioxide 29 BUN 9 Creatinine 1.29 H Glucose 79 Calcium 8.7 - ABG Interpretation ABG results: ABG ABG pH 7.44 pH Units (7.32-7.45) 07/15/16 03:45 ABG pCO2 56 mmHg (35-45) H 07/15/16 03:45 ABG pO2 65 mmHg (85-104) L 07/15/16 03:45 ABG O2 Saturation 93 % (95-98) L 07/15/16 03:45 PT/INR, D-dimer PT 13.9 Seconds (9.4-12.1) H 07/09/16 07:32 Consult Discharge Plan - Plan Referrals: Tootie Montano, DEBBIE [Primary Care Provider] - 07/19/16 1:15 pm ()
[2016-07-15] MEDS ORDERED: THIAMINE IVPB ONE (13:00)
[2016-07-15] MEDS ORDERED: MVI IVPB ONE (13:00)
[2016-07-15] MEDS ORDERED: VITAMIN K IVPB ONE (13:00)
[2016-07-15] MEDS ORDERED: [UNRECOGNIZED DRUG - OTHER] IVPB ONE (13:00)
[2016-07-15] MEDS ORDERED: FOLIC ACID IVPB ONE (13:00)
--- NOTE | 2016-07-15 13:34 | Psychiatry Progress Note ---
Date of Encounter: 07/15/16 Time of Encounter: 13:28 Subjective Interval history: Case was discussed with Dr. kelsey by phone regarding medication management of agitation and delirium of this patient's. Review of his chart indicates that he is in a stat of delirium due to multiple etiologies, metabolic, infection, pneumonia etc. Patient did not respond well to Ativan and Haldol. Recommendation: 1. May benefit from Seroquel 25 mg twice a day as needed 2. May benefit from Geodon 20 mg IM or by mouth for agitation. Thank you for consultation and please address any questions. Results - Vital Signs Vital Signs: Temp Pulse Resp BP Pulse Ox 97.8 F 81 20 138/79 96 07/15/16 11:42 07/15/16 11:42 07/15/16 11:42 07/15/16 11:42 07/15/16 11:42 - Labs Labs: Laboratory Results - last 24 hr 07/12/16 07/14/16 07/14/16 09:16 08:16 20:42 WBC RBC Hgb Hct MCV MCH MCHC RDW Plt Count MPV Immature Gran % Seg Neutrophils % Lymphocytes % Monocytes % Eosinophils % Basophils % Neutrophils # Lymphocytes # Monocytes # Eosinophils # Basophils # ABG pH ABG pCO2 ABG pO2 ABG HCO3 ABG Total CO2 ABG O2 Saturation ABG Base Excess Liter Flow Blood Gas Modality Inspired O2 Sodium Potassium Chloride Carbon Dioxide BUN Creatinine Est GFR ( Amer) Est GFR (Non-Af Amer) BUN/Creatinine Ratio Glucose POC Glucose 81 85 Calculated Osmolality Calcium Phosphorus Magnesium Pleur Adenosine Deamin 3.2 Vancomycin Trough 07/15/16 07/15/16 07/15/16 03:45 03:58 03:58 WBC 7.6 RBC 4.06 L Hgb 12.0 L Hct 38.5 MCV 94.8 MCH 29.6 MCHC 31.2 L RDW 18.0 H Plt Count 286 MPV 9.3 L Immature Gran % 0.4 Seg Neutrophils % 67.2 Lymphocytes % 15.7 Monocytes % 9.4 Eosinophils % 6.6 Basophils % 0.7 Neutrophils # 5.1 Lymphocytes # 1.2 Monocytes # 0.7 Eosinophils # 0.5 Basophils # 0.1 ABG pH 7.44 ABG pCO2 56 H ABG pO2 65 L ABG HCO3 38.0 H ABG Total CO2 39.7 H ABG O2 Saturation 93 L ABG Base Excess 11.7 H Liter Flow 4 Blood Gas Modality NC Inspired O2 36 Sodium Potassium Chloride Carbon Dioxide BUN Creatinine Est GFR ( Amer) Est GFR (Non-Af Amer) BUN/Creatinine Ratio Glucose POC Glucose Calculated Osmolality Calcium Phosphorus Magnesium Pleur Adenosine Deamin Vancomycin Trough 28.5 H* 07/15/16 03:58 WBC RBC Hgb Hct MCV MCH MCHC RDW Plt Count MPV Immature Gran % Seg Neutrophils % Lymphocytes % Monocytes % Eosinophils % Basophils % Neutrophils # Lymphocytes # Monocytes # Eosinophils # Basophils # ABG pH ABG pCO2 ABG pO2 ABG HCO3 ABG Total CO2 ABG O2 Saturation ABG Base Excess Liter Flow Blood Gas Modality Inspired O2 Sodium 142 Potassium 3.8 Chloride 104 Carbon Dioxide 29 BUN 9 Creatinine 1.29 H Est GFR ( Amer) > 60 Est GFR (Non-Af Amer) 57 L BUN/Creatinine Ratio 7 Glucose 79 POC Glucose Calculated Osmolality 292 Calcium 8.7 Phosphorus 3.3 Magnesium 1.8 Pleur Adenosine Deamin Vancomycin Trough - Impressions ITS Impressions Liver Ultrasound 06/30/16 19:45 IMPRESSION: 1. Limited evaluation due to overlying bowel gas. The gallbladder is not identified and evaluated. 2. Fatty liver. 3. Right pleural effusion. D/ / Prince Kohler MD / Prince Kohler MD Interpreting Provider: Prince Kohler MD Paracentesis Ultrasound 07/01/16 00:00 IMPRESSION: 1. Successful ultrasound guided right thoracentesis. D/ / Jarrod Lopez MD / Jarrod Lopez MD Interpreting Provider: Jarrod Lopez MD Chest X-Ray 07/01/16 10:28 IMPRESSION: Decreased size of right pleural effusion status post thoracentesis. No evidence of pneumothorax. Persistent volume loss, and right basilar opacity. D/ / Yonathan Skaggs MD / Yonathan Skaggs MD Interpreting Provider: Yonathan Skaggs MD Chest CT 07/02/16 17:31 IMPRESSION: Trace right pneumothorax with moderate to large pleural effusion remaining. Trace pneumothorax may relate to previous day thoracentesis. Severe consolidative changes in the right lung as described above. More nonspecific patchy ground-glass airspace disease is seen in the left upper lobe. Pneumonia and pulmonary edema are primary considerations. Recommend follow-up chest x-ray in approximately 12 hours time to ensure that the right-sided pneumothorax does not increase in size. This could be performed at a sooner interval if clinically indicated. The findings and recommendations were discussed with Dr. Durant at 6:59 p.m., 07/02/2016. D/ / 07/02/2016 18:54:18 Alberto Christina MD / nikki Interpreting Provider: Alberto Christina MD Chest X-Ray 07/03/16 06:00 IMPRESSION: 1. Larger right pleural effusion with associated atelectasis in the right lung base. Underlying hemothorax cannot be excluded. 2. Low lung volumes. D/ / Mu Andre MD / Mu Andre MD Interpreting Provider: Mu Andre MD Chest X-Ray 07/06/16 08:59 IMPRESSION: 1. Re- demonstration of moderate to large right pleural effusion which appears slightly decreased in size with improved aeration of the right upper lobe. D/ / Waldo Bonds MD / Waldo Bonds MD Interpreting Provider: Waldo Bonds MD Lumbar Spine X-Ray 07/06/16 18:54 IMPRESSION: Spondylolisthesis at L5-S1 with subtle lucency through the inferior endplate. Possibility of endplate fracture cannot be excluded. Recommend follow-up evaluation with CT for further evaluation. MRI may be considered alternatively to evaluate for edema of acute injury. D/ / Mark Walls MD / Mark Walls MD Interpreting Provider: Mark Walls MD Lumbar Spine CT 07/07/16 10:15 IMPRESSION: 1. Negative for fracture. 2. L5 spondylolysis with grade 2 spondylolisthesis and severe L5/S1 spondylosis. D/ / Silver Reeves MD / Silver Reeves MD Interpreting Provider: Silver Reeves MD Chest X-Ray 07/09/16 07:48 IMPRESSION: Stable chest. Stable cardiomegaly. Low lung volumes. Moderate pulmonary vascular congestion. Moderate to large right pleural effusion, stable. Atelectasis at the right lung base. D/ / Lopez Rowell MD / Lopez Rowell MD Interpreting Provider: Lopez Rowell MD Chest X-Ray 07/11/16 09:19 IMPRESSION: 1. Low lung volumes. 2. Enlarged cardiac silhouette with right-sided pleural effusion and right basilar atelectasis. 3. Prominence of the pulmonary vasculature with minimal patchy opacification bilaterally possibly representing pulmonary edema. D/ / Nabeel Kan MD / Nabeel Kan MD Interpreting Provider: Nabeel Kan MD Thoracentesis Ultrasound 07/12/16 00:00 IMPRESSION: Successful ultrasound guided thoracentesis. D/ / Waldo Pressley MD / Waldo Pressley MD Interpreting Provider: Waldo Pressley MD Chest X-Ray 07/12/16 09:10 IMPRESSION: No pneumothorax status post thoracentesis. Small right pleural effusion, mildly improved from prior exam. Mildly improved aeration to right lung base with still persistent mild bibasilar opacities, right worse than left, which may relate to atelectasis or infiltrates. D/ / 07/12/2016 09:56:04 Thomas Richey MD / Ana Samano Interpreting Provider: Thomas Richey MD Assessment and Plan (1) Delirium due to multiple etiologies Current visit: Yes Status: Acute Plan: Continue hospitalization, Close observation, Suicide Precautions per unit protocol, Encourage participation in unit milieu, Group Therapy, Monitor sleep, Monitor appetite Additional Plan: 1. Seroquel 25 mg twice a day when necessary 2. Geodon 20 mg IM or by mouth when necessary for agitation. Consult Discharge Plan - Plan Referrals: Tootie Montano CNP [Primary Care Provider] - 07/19/16 1:15 pm ()
[2016-07-15 16:02] LABS: Bilirubin,Urine Negative (Negative); Blood,Urine Moderate (Negative); Clarity,Urine Clear (Clear); Color,Urine Yellow (Yellow); Glucose,Urine (UA) Normal (Normal); Ketones,Urine Negative (Negative); Leukocyte Esterase,Urine Small (Negative); Nitrite,Urine Negative (Negative); Protein,Urine 30 mg/dL (Neg-Trace); Specific Gravity,Urine 1.021 (1.010-1.025); Urobilinogen,Urine Normal (Normal)
[2016-07-15 16:05] LABS: Bacteria,Urine None Seen per hpf (None-Few); Hyaline Casts,Urine None Seen per lpf (None-Few); RBC,Urine 30-50 per hpf (0-3); Squamous Epithelial Cell,Urine Many per lpf (None-Few)
[2016-07-15] MEDS: 0.9 % Sodium Chloride 1,000 ML IVC SCH (22:02)
[2016-07-15] MEDS: Thiamine (B-1) 500 MG in 0.9 % Sodium Chloride 50 ML IVPB SCH (23:03)
[2016-07-16] MEDS: Nicotine 21 MG PATCH.TD24 TD SCH ×2 (04:03→10:13)
[2016-07-16] MEDS: Ipratropium/Albuterol Neb 3 ML IH SCH ×4 (04:39→21:26)
[2016-07-16] MEDS: *HR* Enoxaparin 40 MG/0.4 ML SYRINGE SQ SCH (05:45)
[2016-07-16 06:03] LABS: Basophils # 0.1 K/mcL (0.0-0.2); Basophils % 0.8 %; Eosinophils # 0.6 K/mcL (0.0-0.6); Eosinophils % 8.5 %; Hematocrit 36.9 % (37.5-50.1); Hemoglobin 11.5 g/dL (12.9-16.9); Immature Granulocytes % 0.3 % (0-4); Lymphocytes # 1.1 K/mcL (0.6-4.6); Lymphocytes % 15.7 %; Mean Corpuscular HGB Conc 31.2 g/dL (31.6-35.5); Mean Corpuscular Hemoglobin 29.9 pg (28.0-33.3); Mean Corpuscular Volume 96.1 fL (83.0-100.0); Mean Platelet Volume 9.4 fL (9.4-12.4); Monocytes # 0.6 K/mcL (0.0-1.3); Monocytes % 8.5 %; Neutrophils # 4.8 K/mcL (1.6-8.9); Platelet Count 281 K/mcL (140-400); Red Blood Count 3.84 M/mcL (4.19-5.50); Red Cell Distribution Width 18.2 % (11.5-14.5); Segmented Neutrophils % 66.2 %
[2016-07-16 06:15] LABS: Calcium 8.5 mg/dL (8.6-10.8); Magnesium 1.9 mg/dL (1.6-2.6); Phosphorous 4.5 mg/dL (2.3-4.7); Potassium 3.5 mEq/L (3.5-4.5)
[2016-07-16] MEDS: Folic Acid 1 MG TABLET PO SCH (10:13)
[2016-07-16] MEDS: Magnesium Oxide 400 MG TABLET PO SCH ×2 (10:13→22:23)
[2016-07-16] MEDS: Aspirin 81 MG TAB.CHEW PO SCH (10:13)
[2016-07-16] MEDS: Lactobacillus 1 EACH CAP.SPRINK PO SCH ×2 (10:13→22:23)
[2016-07-16] MEDS: Thiamine (B-1) 500 MG in 0.9 % Sodium Chloride 50 ML IVPB SCH ×3 (10:14→22:24)
[2016-07-16] MEDS: Vitamin B Complex/Vit C/Vit E 1 EACH TABLET PO SCH (10:16)
--- NOTE | 2016-07-16 11:40 | Internal Med Progress Note ---
Date of Encounter: 07/16/16 Time of Encounter: 11:37 - Subjective Interval history: Pt seen and examined at bedside. Pt is awake and alert to self and place but remains confused and disoriented. As per nursing reports, patient tolerated Seroquel therapy well and was calm for majority of the day. He was noted to be agitated this morning which subsided after administration of seroquel. Overnight patient's family was concerned about his mental status due to which MRI brain was ordered. Awaiting study. As per nursing staff and my evaluation, patient's mental status is improving. He is able to converse, which is better than how he was two days ago. - Assessment and plan (1) Altered mental status Current Visit: Yes Status: Acute Assessment and plan: Multifactorial Mental status improving will continue to all Sedative agents pt responding well to Seroquel, will continue Seroquel 12.5mg PO q12h Will continue bipap support and closely monitor s/p Thoracentesis (07/12/16) will closely monitor Hold all sedative agents (Librium, Gabapentin, Ativan) Concern for Wernicke's encephalopathy given alcohol abuse history =ontinue Folate and Thiamine supplementation IV thiamine supplementation as per wernicke encephalopathy protocol Qualifiers: Altered mental status type: transient alteration of awareness Qualified Code(s): R40.4 - Transient alteration of awareness (2) Hypernatremia Current Visit: Yes Status: Acute Resolved (3) Pleural effusion, right Current Visit: Yes Status: Acute Assessment and plan: s/p thoracentesis on admission, fluid consistent with exudate, ct was obtained , which also revealed effusion, infiltrates and a residual pneumothroax, pulmonology consulted in light of exudate fluid, pulmonology input noted Pt underwent recurrent thoracentesis (07/12/16) Pt has receiving 14 days of IV abx clinically no signs of infectious etiology present at this time RAMÓN secondary to Vancomcyin discontinued all antibiotics at this time gentle IV fluid hydration at this time (4) Alcoholic liver disease Current Visit: Yes Status: Chronic (5) Essential hypertension Current Visit: Yes Status: Chronic BP within acceptable range continue home medications (6) Pneumonia Current Visit: No Status: Inactive Assessment and plan: Resolved Qualifiers: Pneumonia type: aspiration pneumonia Aspiration pneumonia type: due to regurgitated food Laterality: right Lung location: lower lobe of lung Qualified Code(s): J69.0 - Pneumonitis due to inhalation of food and vomit (7) Cellulitis Current Visit: Yes Status: Acute Assessment and plan: Resolved Qualifiers: Site of cellulitis: extremity Site of cellulitis of extremity: lower extremity Laterality: unspecified laterality Qualified Code(s): L03.119 - Cellulitis of unspecified part of limb (8) Hypomagnesemia Current Visit: Yes Status: Acute Resolved continue to monitor electrolytes and replace as needed (9) Acute kidney injury Current Visit: Yes Status: Acute Likely drug induced continue IV fluids closely monitor (10) Generalized weakness Current Visit: Yes Status: Acute Assessment and plan: generalized weakness in setting of chronic alcohol intake and poor nutrition status, drowsiness, discontinued gabapentin . Avoid sedative agents continue with PT. recommended placement ECF - Constitutional Vitals: Temp Pulse Resp BP Pulse Ox 97.6 F 81 18 147/87 92 07/16/16 11:32 07/16/16 11:32 07/16/16 11:32 07/16/16 11:32 07/16/16 11:32 General appearance: Present: A&O X 2 (alert to self and place ), no acute distress, obese, answers questions appropriately - Head Head exam: Present: atraumatic, normocephalic - Eye Eye exam: Present: conjuntiva pink, sclera anicteric - Respiratory Respiratory exam: Present: CTAB. Absent: accessory muscle use, rales, rhonchi, wheezes - Cardiovascular Cardiovascular exam: Present: RRR, +S1, +S2. Absent: diastolic murmur, gallop, rubs, systolic murmur - GI/Abdominal GI/Abdominal exam: Present: normal bowel sounds, soft, no peritoneal signs. Absent: distended, tenderness - Extremities Exam Extremities exam: Present: warm, radial pulses palpable and symetrical. Absent : calf tenderness, pedal edema - Neurological Exam Neurological exam: Present: alert Internal Medicine: Result - Labs CBC & Chem 7: 07/16/16 05:44 07/16/16 05:44 Labs: Short CBC 07/16/16 Range/Units 05:44 WBC 7.3 (4.3-11.1) K/mcL Hgb 11.5 L (12.9-16.9) g/dL Hct 36.9 L (37.5-50.1) % Plt Count 281 (140-400) K/mcL Neutrophils # 4.8 (1.6-8.9) K/mcL BMP 07/16/16 05:44 Sodium 145 Potassium 3.5 Chloride 105 Carbon Dioxide 34 H BUN 10 Creatinine 1.68 H Glucose 89 Calcium 8.5 L Urine 07/15/16 Range/Units 15:30 Urine Color Yellow (Yellow) Urine Clarity Clear (Clear) Urine pH 6.0 (5.0-8.0) pH Units Ur Specific [place] 1.021 (1.010-1.025) Urine Protein 30 H (Neg-Trace) mg/dL Urine Glucose (UA) Normal (Normal) mg/dL - ABG Interpretation ABG results: ABG ABG pH 7.44 pH Units (7.32-7.45) 07/15/16 03:45 ABG pCO2 56 mmHg (35-45) H 07/15/16 03:45 ABG pO2 65 mmHg (85-104) L 07/15/16 03:45 ABG O2 Saturation 93 % (95-98) L 07/15/16 03:45 PT/INR, D-dimer PT 13.9 Seconds (9.4-12.1) H 07/09/16 07:32 Consult Discharge Plan - Plan Referrals: Tootie Montano CNP [Primary Care Provider] - 07/19/16 1:15 pm ()
[2016-07-16] MEDS: 0.9 % Sodium Chloride 1,000 ML IVC SCH (14:33)
[2016-07-17] MEDS: Ipratropium/Albuterol Neb 3 ML IH SCH ×4 (04:04→21:53)
[2016-07-17] MEDS: 0.9 % Sodium Chloride 1,000 ML IVC SCH ×3 (05:02→19:03)
[2016-07-17] MEDS: *HR* Enoxaparin 40 MG/0.4 ML SYRINGE SQ SCH (05:06)
[2016-07-17 05:21] LABS: Calcium 8.7 mg/dL (8.6-10.8); Phosphorous 4.8 mg/dL (2.3-4.7); Potassium 4.3 mEq/L (3.5-4.5)
[2016-07-17 05:23] LABS: Magnesium 2.1 mg/dL (1.6-2.6)
[2016-07-17 05:32] LABS: Basophils # 0.1 K/mcL (0.0-0.2); Basophils % 0.9 %; Eosinophils # 0.6 K/mcL (0.0-0.6); Eosinophils % 8.2 %; Hematocrit 41.9 % (37.5-50.1); Hemoglobin 13.1 g/dL (12.9-16.9); Immature Granulocytes % 0.5 % (0-4); Immature Platelets 2.7 % (1.1-6.1); Lymphocytes # 1.5 K/mcL (0.6-4.6); Lymphocytes % 19.9 %; Mean Corpuscular HGB Conc 31.3 g/dL (31.6-35.5); Mean Corpuscular Hemoglobin 29.8 pg (28.0-33.3); Mean Corpuscular Volume 95.2 fL (83.0-100.0); Monocytes # 0.6 K/mcL (0.0-1.3); Monocytes % 7.8 %; Neutrophils # 4.7 K/mcL (1.6-8.9); Platelet Count 303 K/mcL (140-400); Red Cell Distribution Width 18.1 % (11.5-14.5); Segmented Neutrophils % 62.7 %
[2016-07-17 05:55] LABS: Platelet Estimate Normal (Normal)
[2016-07-17] MEDS: Vitamin B Complex/Vit C/Vit E 1 EACH TABLET PO SCH (09:02)
[2016-07-17] MEDS: Magnesium Oxide 400 MG TABLET PO SCH ×2 (09:02→21:59)
[2016-07-17] MEDS: Nicotine 21 MG PATCH.TD24 TD SCH (09:03)
[2016-07-17] MEDS: Folic Acid 1 MG TABLET PO SCH (09:04)
[2016-07-17] MEDS: Lactobacillus 1 EACH CAP.SPRINK PO SCH ×2 (09:04→21:59)
[2016-07-17] MEDS: Aspirin 81 MG TAB.CHEW PO SCH (09:04)
[2016-07-17] MEDS: Thiamine (B-1) 500 MG in 0.9 % Sodium Chloride 50 ML IVPB SCH (09:04)
--- NOTE | 2016-07-17 11:52 | Internal Med Progress Note ---
Date of Encounter: 07/17/16 Time of Encounter: 11:49 - Subjective Interval history: Pt seen and examined at bedside. Resting in bed. Mental status improved from previous day. More oriented and able to converse better. Speech remains garbled but improved from previous day. MRI brain pending - Assessment and plan (1) Altered mental status Current Visit: Yes Status: Acute Assessment and plan: Multifactorial Mental status improving will continue to all Sedative agents pt responding well to Seroquel, will continue Seroquel 12.5mg PO q12h Will continue bipap support and closely monitor s/p Thoracentesis (07/12/16) will closely monitor Hold all sedative agents (Librium, Gabapentin, Ativan) Concern for Wernicke's encephalopathy given alcohol abuse history Continue Folate and Thiamine supplementation IV thiamine supplementation as per wernicke encephalopathy protocol Qualifiers: Altered mental status type: transient alteration of awareness Qualified Code(s): R40.4 - Transient alteration of awareness (2) Hypernatremia Current Visit: Yes Status: Acute Resolved (3) Pleural effusion, right Current Visit: Yes Status: Acute Assessment and plan: s/p thoracentesis on admission, fluid consistent with exudate, ct was obtained , which also revealed effusion, infiltrates and a residual pneumothroax, pulmonology consulted in light of exudate fluid, pulmonology input noted Pt underwent recurrent thoracentesis (07/12/16) Pt has receiving 14 days of IV abx clinically no signs of infectious etiology present at this time RAMÓN secondary to Vancomcyin discontinued all antibiotics at this time gentle IV fluid hydration at this time (4) Alcoholic liver disease Current Visit: Yes Status: Chronic (5) Essential hypertension Current Visit: Yes Status: Chronic Noted to remain hypertensive will start Amlodipine 5mg PO qd closely monitor BP Hydralazine 10mg IVP q6h prn SBP>150 (6) Pneumonia Current Visit: No Status: Inactive Assessment and plan: Resolved Qualifiers: Pneumonia type: aspiration pneumonia Aspiration pneumonia type: due to regurgitated food Laterality: right Lung location: lower lobe of lung Qualified Code(s): J69.0 - Pneumonitis due to inhalation of food and vomit (7) Cellulitis Current Visit: Yes Status: Acute Assessment and plan: Resolved Qualifiers: Site of cellulitis: extremity Site of cellulitis of extremity: lower extremity Laterality: unspecified laterality Qualified Code(s): L03.119 - Cellulitis of unspecified part of limb (8) Hypomagnesemia Current Visit: Yes Status: Acute Resolved continue to monitor electrolytes and replace as needed (9) Acute kidney injury Current Visit: Yes Status: Acute Likely drug induced vs. hypertensive nephropathy continue IV fluids closely monitor closely monitor BP will obtain Renal US (10) Generalized weakness Current Visit: Yes Status: Acute Assessment and plan: generalized weakness in setting of chronic alcohol intake and poor nutrition status, drowsiness, discontinued gabapentin . Avoid sedative agents continue with PT. recommended placement ECF - Constitutional Vitals: Temp Pulse Resp BP Pulse Ox 98.4 F 85 16 156/97 93 07/17/16 07:52 07/17/16 07:52 07/17/16 09:45 07/17/16 09:45 07/17/16 09:45 General appearance: Present: A&O X 2, no acute distress, obese, answers questions appropriately - Head Head exam: Present: atraumatic, normocephalic - Eye Eye exam: Present: normal appearance, conjuntiva pink, sclera anicteric - Respiratory Respiratory exam: Present: CTAB. Absent: accessory muscle use, rales, rhonchi, wheezes - Cardiovascular Cardiovascular exam: Present: RRR, +S1, +S2. Absent: diastolic murmur, gallop, rubs, systolic murmur - GI/Abdominal GI/Abdominal exam: Present: normal bowel sounds, soft, no peritoneal signs. Absent: distended, tenderness - Extremities Exam Extremities exam: Present: warm, radial pulses palpable and symetrical. Absent : calf tenderness, cyanotic, pedal edema - Neurological Exam Neurological exam: Present: alert - Psychiatric Psychiatric exam: Present: normal affect, normal mood Internal Medicine: Result - Labs CBC & Chem 7: 07/17/16 04:23 07/17/16 04:23 Labs: Short CBC 07/17/16 Range/Units 04:23 WBC 7.5 (4.3-11.1) K/mcL Hgb 13.1 D (12.9-16.9) g/dL Hct 41.9 (37.5-50.1) % Plt Count 303 (140-400) K/mcL Neutrophils # 4.7 (1.6-8.9) K/mcL BMP 07/17/16 04:23 Sodium 142 Potassium 4.3 Chloride 106 Carbon Dioxide 28 BUN 9 Creatinine 1.68 H Glucose 72 Calcium 8.7 - ABG Interpretation ABG results: ABG ABG pH 7.44 pH Units (7.32-7.45) 07/15/16 03:45 ABG pCO2 56 mmHg (35-45) H 07/15/16 03:45 ABG pO2 65 mmHg (85-104) L 07/15/16 03:45 ABG O2 Saturation 93 % (95-98) L 07/15/16 03:45 PT/INR, D-dimer PT 13.9 Seconds (9.4-12.1) H 07/09/16 07:32 Consult Discharge Plan - Plan Referrals: Tootie Montano, DEBBIE [Primary Care Provider] - 07/19/16 1:15 pm ()
[2016-07-17] MEDS: amLODIPine 5 MG TABLET PO SCH (12:36)
[2016-07-17] MEDS ORDERED: VITAMIN K IVPB SCH (15:00)
[2016-07-17] MEDS ORDERED: MVI IVPB SCH (15:00)
[2016-07-17] MEDS ORDERED: [UNRECOGNIZED DRUG - OTHER] IVPB SCH (15:00)
[2016-07-17] MEDS ORDERED: THIAMINE IVPB SCH (15:00)
[2016-07-17] MEDS ORDERED: FOLIC ACID IVPB SCH (15:00)
[2016-07-18] MEDS: Ipratropium/Albuterol Neb 3 ML IH SCH ×4 (04:00→21:18)
[2016-07-18 08:39] LABS: Basophils # 0.1 K/mcL (0.0-0.2); Basophils % 0.7 %; Eosinophils # 0.6 K/mcL (0.0-0.6); Eosinophils % 6.5 %; Hematocrit 40.6 % (37.5-50.1); Hemoglobin 12.8 g/dL (12.9-16.9); Immature Granulocytes % 0.4 % (0-4); Immature Platelets 2.1 % (1.1-6.1); Lymphocytes # 1.6 K/mcL (0.6-4.6); Mean Corpuscular HGB Conc 31.5 g/dL (31.6-35.5); Mean Corpuscular Hemoglobin 29.7 pg (28.0-33.3); Mean Corpuscular Volume 94.2 fL (83.0-100.0); Mean Platelet Volume 9.1 fL (9.4-12.4); Monocytes # 0.6 K/mcL (0.0-1.3); Monocytes % 6.4 %; Neutrophils # 6.1 K/mcL (1.6-8.9); Platelet Count 373 K/mcL (140-400); Red Blood Count 4.31 M/mcL (4.19-5.50); Red Cell Distribution Width 18.4 % (11.5-14.5)
[2016-07-18] MEDS: amLODIPine 5 MG TABLET PO SCH (08:47)
[2016-07-18] MEDS: Vitamin B Complex/Vit C/Vit E 1 EACH TABLET PO SCH (08:47)
[2016-07-18] MEDS: Lactobacillus 1 EACH CAP.SPRINK PO SCH ×2 (08:47→23:28)
[2016-07-18] MEDS: Nicotine 21 MG PATCH.TD24 TD SCH (08:47)
[2016-07-18] MEDS: Aspirin 81 MG TAB.CHEW PO SCH (08:47)
[2016-07-18] MEDS: Magnesium Oxide 400 MG TABLET PO SCH ×2 (08:47→23:28)
[2016-07-18] MEDS: Folic Acid 1 MG TABLET PO SCH (08:47)
[2016-07-18 08:50] LABS: Calcium 9.1 mg/dL (8.6-10.8); Phosphorous 3.9 mg/dL (2.3-4.7)
[2016-07-18 08:56] LABS: Potassium 3.9 mEq/L (3.5-4.5)
--- NOTE | 2016-07-18 11:23 | Internal Med Progress Note ---
Date of Encounter: 07/18/16 Time of Encounter: 10:45 - Subjective Interval history: Pt seen and examined at bedside. Resting in bed. Mental status improved from previous day. More oriented and able to converse better. Speech remains garbled but improved from previous day. MRI brain pending initiate discharge planning mental status AAO x 3 reports of having tremors in his extremities for the last three months able to tell his home med list however has not taken metoprolol since april - Assessment and plan (1) Altered mental status Current Visit: Yes Status: Acute Assessment and plan: Multifactorial Mental status improving will continue to all Sedative agents pt responding well to Seroquel, will continue Seroquel 12.5mg PO q12h Will continue bipap support and closely monitor s/p Thoracentesis (07/12/16) will closely monitor Hold all sedative agents (Librium, Gabapentin, Ativan) Concern for Wernicke's encephalopathy given alcohol abuse history Continue Folate and Thiamine supplementation IV thiamine supplementation as per wernicke encephalopathy protocol initiate discharge planning social media analyst to set up rehab placement after discharge pt encouraged to get out of bed to chair and ambulate with assistance Qualifiers: Altered mental status type: transient alteration of awareness Qualified Code(s): R40.4 - Transient alteration of awareness (2) Hypernatremia Current Visit: Yes Status: Acute Resolved (3) Pleural effusion, right Current Visit: Yes Status: Acute Assessment and plan: s/p thoracentesis on admission, fluid consistent with exudate, ct was obtained , which also revealed effusion, infiltrates and a residual pneumothroax, pulmonology consulted in light of exudate fluid, pulmonology input noted Pt underwent recurrent thoracentesis (07/12/16) Pt has receiving 14 days of IV abx clinically no signs of infectious etiology present at this time RAMÓN secondary to Vancomcyin discontinued all antibiotics at this time gentle IV fluid hydration at this time (4) Alcoholic liver disease Current Visit: Yes Status: Chronic (5) Essential hypertension Current Visit: Yes Status: Chronic continue Amlodipine 5mg PO qd restart Pt's Metoprolol, reported of taking Metoprolol 50mg PO BID however has not filled prescription since April, will start with Metoprolol 25mg PO BID and increase as needed closely monitor BP Hydralazine 10mg IVP q6h prn SBP>150 (6) Pneumonia Current Visit: No Status: Inactive Assessment and plan: Resolved Qualifiers: Pneumonia type: aspiration pneumonia Aspiration pneumonia type: due to regurgitated food Laterality: right Lung location: lower lobe of lung Qualified Code(s): J69.0 - Pneumonitis due to inhalation of food and vomit (7) Cellulitis Current Visit: Yes Status: Acute Assessment and plan: Resolved Qualifiers: Site of cellulitis: extremity Site of cellulitis of extremity: lower extremity Laterality: unspecified laterality Qualified Code(s): L03.119 - Cellulitis of unspecified part of limb (8) Hypomagnesemia Current Visit: Yes Status: Acute Resolved continue to monitor electrolytes and replace as needed (9) Acute kidney injury Current Visit: Yes Status: Acute improving Likely drug induced vs. hypertensive nephropathy continue IV fluids closely monitor closely monitor BP awaiting Renal US (10) Generalized weakness Current Visit: Yes Status: Acute Assessment and plan: generalized weakness in setting of chronic alcohol intake and poor nutrition status, drowsiness, discontinued gabapentin . Avoid sedative agents continue with PT. recommended placement ECF - Constitutional Vitals: Temp Pulse Resp BP Pulse Ox 97.7 F 85 20 164/90 93 07/18/16 10:51 07/18/16 10:51 07/18/16 10:51 07/18/16 10:51 07/18/16 10:51 General appearance: Present: A&O X 3, no acute distress, obese, answers questions appropriately - Head Head exam: Present: atraumatic, normocephalic - Eye Eye exam: Present: normal appearance, conjuntiva pink, sclera anicteric - Respiratory Respiratory exam: Present: CTAB. Absent: accessory muscle use, rales, rhonchi, wheezes - Cardiovascular Cardiovascular exam: Present: RRR, +S1, +S2. Absent: diastolic murmur, gallop, rubs, systolic murmur - GI/Abdominal GI/Abdominal exam: Present: normal bowel sounds, soft, no peritoneal signs. Absent: distended, tenderness - Extremities Exam Extremities exam: Present: warm, radial pulses palpable and symetrical. Absent : calf tenderness, cyanotic, pedal edema - Neurological Exam Neurological exam: Present: alert, oriented X3, speech deficit - Psychiatric Psychiatric exam: Present: normal mood Internal Medicine: Result - Labs CBC & Chem 7: 07/18/16 08:14 07/18/16 08:14 Labs: Short CBC 07/18/16 Range/Units 08:14 WBC 9.0 (4.3-11.1) K/mcL Hgb 12.8 L (12.9-16.9) g/dL Hct 40.6 (37.5-50.1) % Plt Count 373 (140-400) K/mcL Neutrophils # 6.1 (1.6-8.9) K/mcL BMP 07/18/16 08:14 Sodium 144 Potassium 3.9 Chloride 106 Carbon Dioxide 25 BUN 10 Creatinine 1.62 H Glucose 89 Calcium 9.1 - ABG Interpretation ABG results: ABG ABG pH 7.44 pH Units (7.32-7.45) 07/15/16 03:45 ABG pCO2 56 mmHg (35-45) H 07/15/16 03:45 ABG pO2 65 mmHg (85-104) L 07/15/16 03:45 ABG O2 Saturation 93 % (95-98) L 07/15/16 03:45 PT/INR, D-dimer PT 13.9 Seconds (9.4-12.1) H 07/09/16 07:32 Consult Discharge Plan - Plan Referrals: Tootie Montano, BRIDGES SUPERVISOR [Primary Care Provider] - 07/19/16 1:15 pm ()
[2016-07-18] MEDS: Thiamine (B-1) 250 MG in 0.9 % Sodium Chloride 50 ML IVPB SCH (14:57)
[2016-07-19] MEDS: Ipratropium/Albuterol Neb 3 ML IH SCH ×4 (05:22→21:40)
[2016-07-19] MEDS: amLODIPine 5 MG TABLET PO SCH (07:46)
[2016-07-19] MEDS: Lactobacillus 1 EACH CAP.SPRINK PO SCH ×2 (07:46→21:10)
[2016-07-19] MEDS: Magnesium Oxide 400 MG TABLET PO SCH ×2 (07:47→21:10)
[2016-07-19] MEDS: Folic Acid 1 MG TABLET PO SCH (07:47)
[2016-07-19] MEDS: Nicotine 21 MG PATCH.TD24 TD SCH (07:48)
[2016-07-19] MEDS: Aspirin 81 MG TAB.CHEW PO SCH (07:48)
[2016-07-19] MEDS: Vitamin B Complex/Vit C/Vit E 1 EACH TABLET PO SCH (07:48)
[2016-07-19 11:19] LABS: Basophils # 0.1 K/mcL (0.0-0.2); Basophils % 0.6 %; Eosinophils # 0.6 K/mcL (0.0-0.6); Eosinophils % 5.9 %; Hematocrit 38.8 % (37.5-50.1); Hemoglobin 12.5 g/dL (12.9-16.9); Immature Granulocytes % 0.5 % (0-4); Lymphocytes # 1.5 K/mcL (0.6-4.6); Lymphocytes % 15.6 %; Mean Corpuscular HGB Conc 32.2 g/dL (31.6-35.5); Mean Corpuscular Volume 93.3 fL (83.0-100.0); Mean Platelet Volume 9.4 fL (9.4-12.4); Monocytes # 0.7 K/mcL (0.0-1.3); Monocytes % 6.9 %; Platelet Count 334 K/mcL (140-400); Red Blood Count 4.16 M/mcL (4.19-5.50); Red Cell Distribution Width 18.6 % (11.5-14.5); Segmented Neutrophils % 70.5 %
[2016-07-19 11:29] LABS: Calcium 8.7 mg/dL (8.6-10.8); Magnesium 1.6 mg/dL (1.6-2.6); Phosphorous 4.1 mg/dL (2.3-4.7); Potassium 3.6 mEq/L (3.5-4.5)
--- NOTE | 2016-07-19 14:03 | Internal Med Progress Note ---
Date of Encounter: 07/19/16 Time of Encounter: 13:59 - Subjective Interval history: Pt seen and examined at bedside. Resting in bed. Mental status improved from previous day. More oriented and able to converse better. Speech remains garbled but improved from previous day. Noted to be more confused after receiving Seroquel dose Will change seroquel to prn for agitation initiate discharge planning, awaiting placement mental status AAO x 3 - Assessment and plan (1) Altered mental status Current Visit: Yes Status: Acute Assessment and plan: Multifactorial Mental status improving will continue to all Sedative agents Change Seroquel to prn Will continue bipap support and closely monitor s/p Thoracentesis (07/12/16) will closely monitor Hold all sedative agents (Librium, Gabapentin, Ativan) Concern for Wernicke's encephalopathy given alcohol abuse history Continue Folate and Thiamine supplementation initiate discharge planning medical social worker to set up rehab placement after discharge pt encouraged to get out of bed to chair and ambulate with assistance Qualifiers: Altered mental status type: transient alteration of awareness Qualified Code(s): R40.4 - Transient alteration of awareness (2) Hypernatremia Current Visit: Yes Status: Acute Resolved (3) Pleural effusion, right Current Visit: Yes Status: Acute Assessment and plan: s/p thoracentesis on admission, fluid consistent with exudate, ct was obtained , which also revealed effusion, infiltrates and a residual pneumothroax, pulmonology consulted in light of exudate fluid, pulmonology input noted Pt underwent recurrent thoracentesis (07/12/16) Pt has receiving 14 days of IV abx clinically no signs of infectious etiology present at this time RAMÓN secondary to Vancomcyin discontinued all antibiotics at this time (4) Alcoholic liver disease Current Visit: Yes Status: Chronic (5) Essential hypertension Current Visit: Yes Status: Chronic continue Amlodipine 5mg PO qd Increased Metoprolol to 50mg PO BID closely monitor BP Hydralazine 10mg IVP q6h prn SBP>150 (6) Pneumonia Current Visit: No Status: Inactive Assessment and plan: Resolved Qualifiers: Pneumonia type: aspiration pneumonia Aspiration pneumonia type: due to regurgitated food Laterality: right Lung location: lower lobe of lung Qualified Code(s): J69.0 - Pneumonitis due to inhalation of food and vomit (7) Cellulitis Current Visit: Yes Status: Acute Assessment and plan: Resolved Qualifiers: Site of cellulitis: extremity Site of cellulitis of extremity: lower extremity Laterality: unspecified laterality Qualified Code(s): L03.119 - Cellulitis of unspecified part of limb (8) Hypomagnesemia Current Visit: Yes Status: Acute Resolved continue to monitor electrolytes and replace as needed (9) Acute kidney injury Current Visit: Yes Status: Acute improving Likely drug induced vs. hypertensive nephropathy continue IV fluids closely monitor closely monitor BP awaiting Renal US (10) Generalized weakness Current Visit: Yes Status: Acute Assessment and plan: generalized weakness in setting of chronic alcohol intake and poor nutrition status, drowsiness, discontinued gabapentin . Avoid sedative agents continue with PT. recommended placement ECF - Constitutional Vitals: Temp Pulse Resp BP Pulse Ox 97.4 F L 83 18 148/81 92 07/19/16 12:03 07/19/16 12:03 07/19/16 12:03 07/19/16 12:03 07/19/16 12:03 General appearance: Present: A&O X 3, no acute distress, obese, answers questions appropriately - Head Head exam: Present: atraumatic, normocephalic - Eye Eye exam: Present: normal appearance, conjuntiva pink, sclera anicteric - Respiratory Respiratory exam: Present: CTAB. Absent: respiratory distress, wheezes - Cardiovascular Cardiovascular exam: Present: RRR, +S1, +S2. Absent: diastolic murmur, gallop, rubs, systolic murmur - GI/Abdominal GI/Abdominal exam: Present: normal bowel sounds, soft, no peritoneal signs. Absent: distended, tenderness - Extremities Exam Extremities exam: Present: warm, radial pulses palpable and symetrical. Absent : calf tenderness, pedal edema - Neurological Exam Neurological exam: Present: alert, oriented X3, speech deficit - Psychiatric Psychiatric exam: Present: normal affect, normal mood Internal Medicine: Result - Labs CBC & Chem 7: 07/19/16 10:57 07/19/16 10:57 Labs: Short CBC 07/19/16 Range/Units 10:57 WBC 9.9 (4.3-11.1) K/mcL Hgb 12.5 L (12.9-16.9) g/dL Hct 38.8 (37.5-50.1) % Plt Count 334 (140-400) K/mcL Neutrophils # 7.0 (1.6-8.9) K/mcL BMP 07/19/16 10:57 Sodium 144 Potassium 3.6 Chloride 109 Carbon Dioxide 28 BUN 10 Creatinine 1.54 H Glucose 80 Calcium 8.7 - ABG Interpretation ABG results: ABG ABG pH 7.44 pH Units (7.32-7.45) 07/15/16 03:45 ABG pCO2 56 mmHg (35-45) H 07/15/16 03:45 ABG pO2 65 mmHg (85-104) L 07/15/16 03:45 ABG O2 Saturation 93 % (95-98) L 07/15/16 03:45 PT/INR, D-dimer PT 13.9 Seconds (9.4-12.1) H 07/09/16 07:32 Consult Discharge Plan - Plan Referrals: Tootie Montano CNP [Primary Care Provider] - 07/19/16 1:15 pm ()
[2016-07-19] MEDS: Thiamine (B-1) 250 MG in 0.9 % Sodium Chloride 50 ML IVPB SCH (16:36)
[2016-07-20] MEDS: Ipratropium/Albuterol Neb 3 ML IH SCH ×2 (04:29→10:25)
[2016-07-20 05:14] LABS: Basophils # 0.1 K/mcL (0.0-0.2); Eosinophils # 0.5 K/mcL (0.0-0.6); Hematocrit 43.5 % (37.5-50.1); Hemoglobin 13.9 g/dL (12.9-16.9); Immature Granulocytes % 0.4 % (0-4); Lymphocytes # 1.6 K/mcL (0.6-4.6); Lymphocytes % 15.9 %; Mean Corpuscular Volume 93.8 fL (83.0-100.0); Mean Platelet Volume 10.6 fL (9.4-12.4); Monocytes # 0.5 K/mcL (0.0-1.3); Monocytes % 5.4 %; Platelet Count 323 K/mcL (140-400); Red Blood Count 4.64 M/mcL (4.19-5.50); Red Cell Distribution Width 18.3 % (11.5-14.5); Segmented Neutrophils % 72.3 %
[2016-07-20 05:32] LABS: Calcium 9.3 mg/dL (8.6-10.8); Magnesium 1.5 mg/dL (1.6-2.6); Phosphorous 4.2 mg/dL (2.3-4.7); Potassium 3.6 mEq/L (3.5-4.5)
[2016-07-20 05:39] LABS: Anisocytosis 1+ (Not Present); Neutrophils # 7.2 K/mcL (1.6-8.9); Platelet Estimate Normal (Normal)
[2016-07-20 05:40] LABS: Macrocytosis Present (Not Present)
[2016-07-20] MEDS ORDERED: Magnesium Sulfate 1 GM in D5% in Water 100 ML IVPB ONE (07:52)
[2016-07-20] MEDS: Vitamin B Complex/Vit C/Vit E 1 EACH TABLET PO SCH (08:11)
[2016-07-20] MEDS: amLODIPine 5 MG TABLET PO SCH ×2 (08:12→14:53)
[2016-07-20] MEDS: Folic Acid 1 MG TABLET PO SCH (08:12)
[2016-07-20] MEDS: Aspirin 81 MG TAB.CHEW PO SCH (08:12)
[2016-07-20] MEDS: Lactobacillus 1 EACH CAP.SPRINK PO SCH (08:12)
[2016-07-20] MEDS: Magnesium Oxide 400 MG TABLET PO SCH (08:12)
[2016-07-20] MEDS: Nicotine 21 MG PATCH.TD24 TD SCH (08:13)
--- NOTE | 2016-07-20 11:10 | Discharge Summary ---
Date of Encounter: 07/20/16 Time of Encounter: 11:09 - Discharge Diagnosis (1) Pleural effusion, right Priority: Primary Status: Resolved (2) Essential hypertension Priority: Secondary Status: Chronic (3) Alcoholic liver disease Priority: Primary Status: Chronic (4) Cellulitis Priority: Primary Status: Resolved Qualifiers: Site of cellulitis: extremity Site of cellulitis of extremity: lower extremity Laterality: unspecified laterality Qualified Code(s): L03.119 - Cellulitis of unspecified part of limb (5) Alcoholic Priority: Primary Status: Acute (6) Altered mental status Priority: Primary Status: Resolved Qualifiers: Altered mental status type: transient alteration of awareness Qualified Code(s): R40.4 - Transient alteration of awareness - Discharge Medications Prescriptions: amLODIPine [Norvasc] 5 mg PO DAILY #30 tablet Aspirin 81 mg PO DAILY #30 tab.chew Folic Acid 1 mg PO DAILY #30 tablet Quetiapine Fumarate [Seroquel] 12.5 mg PO BID PRN #30 tablet PRN Reason: Agitation/Hallucinations Thiamine (B-1) [Vitamin B-1] 100 mg PO DAILY #30 tablet Home Medications: Albuterol Sulfate 2.5 mg IH Q6H PRN 06/30/16 [History] Albuterol Sulfate [Proair Hfa] 2 puff IH Q4H PRN 06/30/16 [History] Ibuprofen [Motrin] 800 mg PO Q8HR PRN 06/30/16 [History] Lisinopril-HCTZ 20-12.5 [Prinzide 20-12.5] 1 each PO BID 06/30/16 [History] Metoprolol [Lopressor] 50 mg PO BID 06/30/16 [History] Omeprazole 20 mg PO DAILY 06/30/16 [History] Aspirin 81 mg PO DAILY #30 tab.chew 07/20/16 [Rx] Folic Acid 1 mg PO DAILY #30 tablet 07/20/16 [Rx] Quetiapine Fumarate [Seroquel] 12.5 mg PO BID PRN #30 tablet 07/20/16 [Rx] Thiamine (B-1) [Vitamin B-1] 100 mg PO DAILY #30 tablet 07/20/16 [Rx] amLODIPine [Norvasc] 5 mg PO DAILY #30 tablet 07/20/16 [Rx] Allergies/Adverse Reactions: Allergies codeine Allergy (Verified 06/30/16 11:49) See Comments Penicillins Allergy (Verified 07/01/16 12:03) Rash Procedures/tests Complete & Pending: Procedures Performed prior 72 hours Category Date Time Status US retroperitoneal comp [US] Routine Exams 07/19/16 15:00 Completed Date of admission: 06/30/16 17:21 Primary care physician: Lazaro Ervin Consults: 06/30/16 17:28 Consult to [place] [CONS] Routine Reason for SW Consult: Alcohol abuse 06/30/16 18:01 Consult to Interventional Radiology [CONS] Routine Consulting Provider: Radiology Inter[facility] Reason for Consult: RIght pleural effusion for thoracentesis Call Completed: No 07/03/16 08:32 Consult to Pulmonology [CONS] Routine Consulting Provider: [facility] [place] Reason for Consult: right sided effusion, exudate Call Completed: Yes 07/04/16 08:50 Consult to Physical Therapy [CONS] Routine Comment: Evaluate, develop and implement POC Reason for Consult: servics vs placement OT [Consult to Occupational Therapy] [CONS] Routine Comment: Evaluate, develop and implement POC Reason for Consult: servics vs placement 07/04/16 17:58 Consult to Speech Therapy [CONS] Routine Comment: Evaluate, develop and implement POC Reason for Consult: aspiration pna Call Completed: No 07/11/16 07:00 Consult to Interventional Radiology [CONS] Routine Consulting Provider: Radiology [facility] Reason for Consult: Right sided effusion, needs repeat thoracnetesis. Check pH, Cell Count, Gram stain, Micro incuding AFB, LDH, Tot Protein, ADA, Triglycerides, Amylase, Cholesterol, and Cytology Call Completed: No 07/13/16 08:57 Consult to Physical Therapy [CONS] Routine Comment: Evaluate, develop and implement POC Reason for Consult: re-evaluation. 07/14/16 10:52 Consult to Invasive Line Access Team [CONS] Routine Reason for Consult: needs iv access Line Type: EPIV 07/14/16 19:36 Consult to Speech Therapy [CONS] Routine Comment: Evaluate, develop and implement POC Reason for Consult: difficulty swallowing Call Completed: No 07/15/16 10:54 Consult to Psychiatry [CONS] Stat Consulting Provider: Psych[facility] [place] Reason for Consult: hallucinations, alcohol abuse, agitation Call Completed: Yes Discharging clinician: Andreia Marcellus Anticipated date of discharge: 07/20/16 - Patient Status Disposition: Home Health Service Condition: Fair Functional capacity at discharge: wheelchair bound Overall status at discharge: patient is progressing back to baseline - Discharge Instructions Follow Up With: Tootie Montano CNP [Primary Care Provider] - 07/19/16 1:15 pm (Please follow up as schedule... The office will call for an appointment...) Additional Instructions: Please follow up with your primary care physician with five days after your discharge from the hospital. Please follow up with neurology within 1 week after her discharge from the hospital. Amlodipine 5mg once a day has been added to your home medications if your SBP> 150. Please closely monitor your BP at home, if SBP>150, then take Amlodipine in addition to your other home antihypertensive medications. Alcohol abstinence is recommended Folic acid and thiamine have been added to your home meds. Gabapentin has been discontinued Seroquel 12.5mg twice a day as needed is added for agitation Resume all other medications as prescribed by your primary care physician. - Diet and Activity Activity: as per physical therapy Diet: low salt diet Hospital course: Mr. Ackerman is a 60 year old male with history of cirrhosis, chronic alcohol abuse , COPD, hyperlipidemia, and hypertension who was admitted for bilateral lower extremity cellulitis after failed outpatient therapy. Patient was noted to have right pleural effusion concerning for pneumonia. He was started on IV antibiotics and underwent thoracentesis. Patient's hospital course was prolonged due to recurrent pleural effusion requiring longer duration of IV antibiotics and altered mental status secondary to alcohol withdrawal. Patient' s home medications were readjusted and he was aggressively treated with IV fluids, IV thiamine, folic acid. Patient's mental status has returned to baseline however he has been extremely weak due to his prolonged hospital course. Physical therapy has recommended ECF however patient adamantly refuses and only wants home health. Extensive discussion was held with the patient and family in regards to the risks associated with patient's discharge to home given his weakened condition, however patient adamantly refused and only wants home health. Patient's family includes his daughter and brother and other relatives are willing to take responsibility for the patient and states that the can provide 24/7 care. At this time patient is hemodynamically stable, mental status at baseline, he will be discharged to home with follow-up with primary care physician, and neurology. Patient and family demonstrates understanding of his diagnosis and agree with the discharge care and plan. - Time Spent with Patient Total time spent providing and/or coordinating discharge services: Greater than 30 minutes - Constitutional Vitals: Temp Pulse Resp BP Pulse Ox 98.5 F 83 18 165/94 92 07/20/16 07:31 07/20/16 07:31 07/20/16 07:31 07/20/16 07:07/20/16 08:22 General appearance: Present: A&O X 3, no acute distress, obese, answers questions appropriately - Head Head exam: Present: atraumatic, normocephalic - Eye Eye exam: Present: normal appearance, conjuntiva pink, sclera anicteric - Respiratory Respiratory exam: Present: CTAB. Absent: respiratory distress, wheezes - Cardiovascular Cardiovascular exam: Present: RRR, +S1, +S2. Absent: diastolic murmur, gallop, rubs, systolic murmur - GI/Abdominal GI/Abdominal exam: Present: normal bowel sounds, soft, no peritoneal signs. Absent: distended, tenderness - Extremities Exam Extremities exam: Present: warm, radial pulses palpable and symetrical. Absent : calf tenderness - Neurological Exam Neurological exam: Present: alert, oriented X3 - Psychiatric Psychiatric exam: Present: normal mood
[2016-07-20 11:40] VITALS: BP 158/97
[2016-07-20] MEDS ORDERED: amLODIPine 5 MG TABLET PO ONE (14:27)
--- NOTE | 2016-07-20 14:35 | Physician Discharge Referral ---
Home Health/Hosp Referral Info Transfer to: Home Health Provider in Charge Post Discharge: PCP - Diagnosis (1) Pleural effusion, right Priority: Primary Status: Resolved (2) Essential hypertension Priority: Secondary Status: Chronic (3) Alcoholic liver disease Priority: Primary Status: Chronic (4) Cellulitis Priority: Primary Status: Resolved (5) Alcoholic Priority: Primary Status: Acute (6) Altered mental status Priority: Secondary Status: Resolved - Respiratory Orders Smoking Cessation: Smoking cessation has been advised. For more information, call the [place] Tobacco Quit Line at 3-233-EGXG-NOW. - Services Needed Following services are medically necessary services: Nursing, Home Health Aide, Physical Therapy, Occupational Therapy - Transfer Medications Prescriptions: amLODIPine [Norvasc] 5 mg PO DAILY #30 tablet Aspirin 81 mg PO DAILY #30 tab.chew Folic Acid 1 mg PO DAILY #30 tablet Quetiapine Fumarate [Seroquel] 12.5 mg PO BID PRN #30 tablet PRN Reason: Agitation/Hallucinations Thiamine (B-1) [Vitamin B-1] 100 mg PO DAILY #30 tablet Home Medications: Albuterol Sulfate 2.5 mg IH Q6H PRN 06/30/16 [History] Albuterol Sulfate [Proair Hfa] 2 puff IH Q4H PRN 06/30/16 [History] Ibuprofen [Motrin] 800 mg PO Q8HR PRN 06/30/16 [History] Lisinopril-HCTZ 20-12.5 [Prinzide 20-12.5] 1 each PO BID 06/30/16 [History] Metoprolol [Lopressor] 50 mg PO BID 06/30/16 [History] Omeprazole 20 mg PO DAILY 06/30/16 [History] Aspirin 81 mg PO DAILY #30 tab.chew 07/20/16 [Rx] Folic Acid 1 mg PO DAILY #30 tablet 07/20/16 [Rx] Quetiapine Fumarate [Seroquel] 12.5 mg PO BID PRN #30 tablet 07/20/16 [Rx] Thiamine (B-1) [Vitamin B-1] 100 mg PO DAILY #30 tablet 07/20/16 [Rx] amLODIPine [Norvasc] 5 mg PO DAILY #30 tablet 07/20/16 [Rx] Allergies/Adverse Reactions: Allergies codeine Allergy (Verified 06/30/16 11:49) See Comments Penicillins Allergy (Verified 07/01/16 12:03) Rash Certification: Further, I certify that my clinical findings support that this patient is homebound (i.e. absences from home require considerable and taxing effort and are for medical reasons or protestant services or infrequently or short duration when for other reasons) because: Homebound Reason: Patient requires assistance of a person or device to safely leave home Attestation: My signature below is to certify that this patient is under my care and that I, or nurse practitioner, or a physician's conservation assistant working with me, has a face-to -face encounter with this patient.
[2016-07-21] MEDS ORDERED: Thiamine (B-1) 100 MG TABLET PO SCH (09:00)
== END 2016-07-20 15:15 | disposition home health service (06) | DRG 137 ==
LOC: 3NENU → SUATTDRO 17:21 → 2ANU 20:01
PROVIDERS: ADMIT Internal Medicine; ATTEND Internal Medicine

== ENCOUNTER 2019-10-11 10:48 | Inpatient (IN) ==
[2019-10-11] MEDS ORDERED: Ondansetron 4 MG/2 ML VIAL IVP PRN (15:15)
[2019-10-11] MEDS ORDERED: Naloxone 0.4 MG/ML INJ IVP PRN (15:15)
[2019-10-11] MEDS ORDERED: Isovue-370 500 ML BOTTLE IVP ONE (15:59)
[2019-10-11] MEDS ORDERED: *HR* HYDROmorphone (PF) 1 MG/ML SYRINGE IVP ONE (16:03)
[2019-10-11 16:15] LABS: Nucleated Red Blood Cells 0.5 /100 WBC (0); Red Cell Distribution Width 18.6 % (11.5-14.5)
[2019-10-11 16:16] LABS: Basophils # 0.1 K/mcL (0.0-0.2); Basophils % 0.6 %; Eosinophils # 0.8 K/mcL (0.0-0.6); Eosinophils % 7.9 %; Hematocrit 23.1 % (37.5-50.1); Hemoglobin 6.2 g/dL (12.9-16.9); Immature Granulocytes % 0.8 % (0-4); Lymphocytes # 1.1 K/mcL (0.6-4.6); Lymphocytes % 11.5 %; Mean Corpuscular HGB Conc 26.8 g/dL (31.6-35.5); Mean Corpuscular Hemoglobin 20.3 pg (28.0-33.3); Mean Corpuscular Volume 75.5 fL (83.0-100.0); Mean Platelet Volume 9.2 fL (9.4-12.4); Monocytes # 0.7 K/mcL (0.0-1.3); Monocytes % 7.4 %; Platelet Count 235 K/mcL (140-400); Red Blood Count 3.06 M/mcL (4.19-5.50); Segmented Neutrophils % 71.8 %; White Blood Count 9.8 K/mcL (4.3-11.1)
[2019-10-11] MEDS ORDERED: 0.9 % Sodium Chloride 250 ML IVC SCH (16:30)
[2019-10-11 16:31] LABS: Prothrombin Time 22.4 Seconds (9.4-12.1)
[2019-10-11 16:33] LABS: Activated Partial Thrombo Time 31.7 Seconds (26.0-36.0)
[2019-10-11] MEDS ORDERED: Dextrose Gel 15 GM/37.5 ML TUBE PO PRN ×2 (16:34)
[2019-10-11] MEDS ORDERED: *HR* Dextrose 50 % in Water (Vial) 50 ML VIAL IVP PRN (16:34)
[2019-10-11] MEDS ORDERED: D5% in Water 1,000 ML IVC PRN (16:34)
[2019-10-11] MEDS ORDERED: *HR* LORazepam 2 MG/ML VIAL IVP PRN ×3 (16:35)
[2019-10-11 16:43] LABS: Anisocytosis 1+ (Not Present); Hypochromasia Present (Not Present); Macrocytosis Present (Not Present); Platelet Estimate Normal (Normal); Polychromasia 1+ (Not Present)
[2019-10-11 17:40] LABS: Hemoglobin 6.1 g/dL (12.9-16.9)
[2019-10-11 17:41] LABS: Alanine Aminotransferase 716 Units/L (7-52); Albumin 3.6 g/dL (3.5-5.7); Albumin/Globulin Ratio 0.8 (1.1-2.2); Alkaline Phosphatase 124 Units/L (34-104); Aspartate Amino Transferase 519 Units/L (13-39); BUN/Creatinine Ratio 30 (6-26); Bilirubin,Total 0.5 mg/dL (0.3-1.0); Blood Urea Nitrogen 26 mg/dL (8-23); Calcium 8.9 mg/dL (8.6-10.3); Carbon Dioxide 36 mEq/L (23-29); Chloride 96 mEq/L (98-107); Globulin 4.4 g/dL (2.4-3.5); Glucose 104 mg/dL (70-105); Osmolality,Calculated 287 (280-300); Potassium 4.1 mEq/L (3.5-5.1); Sodium 136 mEq/L (136-145); eGFR For African Americans > 60 (> 60); eGFR For Non-African Americans > 60 (> 60)
[2019-10-11 18:16] LABS: Ferritin 29 ng/mL (20-250); Iron < 10 mcg/dL (65-175); Transferrin 366 mg/dL (203-362)
[2019-10-11 18:22] LABS: Folate > 22.3 ng/mL (3.0-16.0); Vitamin B12 626 pg/mL (250-1100)
[2019-10-11 19:14] LABS: Hepatitis B Surface Antigen Nonreactive (Nonreactive)
[2019-10-11 19:43] LABS: Hepatitis C Virus Antibody Nonreactive (Nonreactive)
[2019-10-11 19:44] LABS: Hepatitis B Core IgM Nonreactive (Nonreactive)
[2019-10-11 19:45] LABS: Hepatitis A Antibody IgM Nonreactive (Nonreactive)
[2019-10-11] MEDS: Insulin LISPRO 300 UNITS/3 ML VIAL SQ SCH (20:44)
[2019-10-11] MEDS ORDERED: Albuterol 2.5 MG/3 ML NEBULIZER IH PRN (21:34)
[2019-10-12] MEDS ORDERED: Morphine Sulfate 2 MG/ML SYRINGE IVP ONE (04:37)
[2019-10-12 06:48] LABS: Hematocrit 27.5 % (37.5-50.1); Hemoglobin 7.6 g/dL (12.9-16.9); Mean Corpuscular HGB Conc 27.6 g/dL (31.6-35.5); Mean Corpuscular Hemoglobin 21.4 pg (28.0-33.3); Mean Corpuscular Volume 77.5 fL (83.0-100.0); Mean Platelet Volume 9.3 fL (9.4-12.4); Platelet Count 206 K/mcL (140-400); Red Blood Count 3.55 M/mcL (4.19-5.50); Red Cell Distribution Width 18.5 % (11.5-14.5); White Blood Count 11.1 K/mcL (4.3-11.1)
[2019-10-12 06:49] LABS: Hematocrit 27.6 % (37.5-50.1); Hemoglobin 7.5 g/dL (12.9-16.9)
[2019-10-12 07:07] LABS: BUN/Creatinine Ratio 28 (6-26); Blood Urea Nitrogen 24 mg/dL (8-23); Calcium 8.9 mg/dL (8.6-10.3); Carbon Dioxide 32 mEq/L (23-29); Chloride 98 mEq/L (98-107); Glucose 107 mg/dL (70-105); Osmolality,Calculated 287 (280-300); Potassium 4.1 mEq/L (3.5-5.1); Sodium 136 mEq/L (136-145); eGFR For African Americans > 60 (> 60); eGFR For Non-African Americans > 60 (> 60)
[2019-10-12] MEDS: Insulin LISPRO 300 UNITS/3 ML VIAL SQ SCH ×4 (08:09→20:58)
[2019-10-12] MEDS: Vitamin B Complex/Vit C/Vit E 1 EACH TABLET PO SCH (08:15)
[2019-10-12] MEDS: Thiamine (B-1) 100 MG TABLET PO SCH (08:15)
[2019-10-12] MEDS: Budesonide/Formoterol 80/4.5 1 PUFF INH IH SCH (08:31)
[2019-10-12] MEDS ORDERED: Folic Acid 1 MG TABLET PO SCH (09:00)
[2019-10-12] MEDS: Aspirin Enteric Coated 81 MG Tablet PO SCH (10:42)
[2019-10-12] MEDS: Magnesium Oxide 400 MG TABLET PO SCH ×2 (10:42→21:03)
[2019-10-12] MEDS: Gabapentin 300 MG CAPSULE PO SCH ×2 (10:42→17:35)
[2019-10-12] MEDS: Sennosides 8.6 MG TABLET PO SCH ×2 (10:42→21:04)
[2019-10-12] MEDS: Cholecalciferol (D-3) 1,000 UNIT (25MCG) TABLET PO SCH (10:43)
[2019-10-12] MEDS: Multivit/Ca/Min/Fe/FA 1 TAB TABLET PO SCH (10:43)
[2019-10-12] MEDS: Furosemide 40 MG TABLET PO SCH ×2 (10:47→17:35)
[2019-10-12] MEDS: Levothyroxine 25 MCG TABLET PO SCH (10:48)
[2019-10-12] MEDS: Fluticasone Propionate Nasal 50 MCG/SPRAY BOTTLE NS SCH ×2 (10:50→21:04)
[2019-10-12] MEDS: Sodium Ferric Gluconat/Sucrose 125 MG in 0.9 % Sodium Chloride 100 ML IVPB SCH (10:50)
[2019-10-12 15:19] LABS: VBG HCO3 34 mEq/L (21-27); VBG PCO2 73 mmHg (41-51); VBG PH 7.28 pH Units (7.32-7.42); VBG PO2 183 mmHg (25-50)
[2019-10-12 15:55] LABS: VBG HCO3 34 mEq/L (21-27); VBG PCO2 69 mmHg (41-51); VBG PO2 232 mmHg (25-50)
[2019-10-12 16:18] LABS: Acetaminophen < 10 mcg/mL (10-20); Alanine Aminotransferase 626 Units/L (7-52); Albumin 3.5 g/dL (3.5-5.7); Albumin/Globulin Ratio 0.8 (1.1-2.2); Alkaline Phosphatase 125 Units/L (34-104); Aspartate Amino Transferase 355 Units/L (13-39); BUN/Creatinine Ratio 25 (6-26); Bilirubin,Total 0.6 mg/dL (0.3-1.0); Blood Urea Nitrogen 22 mg/dL (8-23); Calcium 8.7 mg/dL (8.6-10.3); Carbon Dioxide 34 mEq/L (23-29); Chloride 99 mEq/L (98-107); Ethanol < 10 mg/dL (Less than 10); Globulin 4.4 g/dL (2.4-3.5); Glucose 123 mg/dL (70-105); Osmolality,Calculated 291 (280-300); Potassium 4.1 mEq/L (3.5-5.1); Sodium 138 mEq/L (136-145); Total Protein 7.9 g/dL (6.4-8.9); eGFR For African Americans > 60 (> 60); eGFR For Non-African Americans > 60 (> 60)
[2019-10-12] MEDS: *HR* Heparin 5,000 UNIT/ML VIAL SQ SCH (17:37)
[2019-10-12] MEDS: polyethylene glycoL 3350 17 GM POWD.PACK PO SCH (17:37)
[2019-10-12 17:47] LABS: VBG HCO3 34 mEq/L (21-27); VBG PCO2 62 mmHg (41-51); VBG PH 7.34 pH Units (7.32-7.42); VBG PO2 135 mmHg (25-50)
[2019-10-12] MEDS ORDERED: *HR* HYDROmorphone PF 0.5 MG/0.5 ML SYRINGE IVP PRN (17:58)
[2019-10-12 18:04] LABS: Bilirubin,Urine Negative (Negative); Blood,Urine Negative (Negative); Clarity,Urine Clear (Clear); Color,Urine Light-Yellow (Yellow); Glucose,Urine (UA) Normal (Normal); Ketones,Urine Negative (Negative); Leukocyte Esterase,Urine Negative (Negative); Nitrite,Urine Negative (Negative); Protein,Urine Negative (Neg-Trace); Specific Gravity,Urine 1.011 (1.010-1.025); Urobilinogen,Urine Normal (Normal)
[2019-10-12 20:16] LABS: Adenovirus Not Detected (Not Detect); Bordetella Pertussis Not Detected (Not Detect); Chlamydophila pneumoniae Not Detected (Not Detect); Coronavirus 229E Not Detected (Not Detect); Coronavirus HKU1 Not Detected (Not Detect); Coronavirus NL63 Not Detected (Not Detect); Coronavirus OC43 Not Detected (Not Detect); Human Metapneumovirus Not Detected (Not Detect); Human Rhinovirus/Enterovirus Not Detected (Not Detect); Influenza A Subtype 2009 H1 Not Detected (Not Detect); Influenza B Not Detected (Not Detect); Mycoplasma pneumoniae Not Detected (Not Detect); Parainfluenza Virus 1 Not Detected (Not Detect); Parainfluenza Virus 2 Not Detected (Not Detect); Parainfluenza Virus 3 Not Detected (Not Detect); Parainfluenza Virus 4 Not Detected (Not Detect); Respiratory Syncytial Virus Not Detected (Not Detect)
[2019-10-12] MEDS: Melatonin 3 MG TABLET PO SCH (21:04)
[2019-10-12 22:22] LABS: VBG HCO3 35 mEq/L (21-27); VBG PCO2 54 mmHg (41-51); VBG PH 7.42 pH Units (7.32-7.42); VBG PO2 211 mmHg (25-50)
[2019-10-13] MEDS: Gabapentin 300 MG CAPSULE PO SCH ×3 (00:15→17:40)
[2019-10-13 04:25] LABS: VBG HCO3 32 mEq/L (21-27); VBG PCO2 38 mmHg (41-51); VBG PH 7.53 pH Units (7.32-7.42); VBG PO2 201 mmHg (25-50)
[2019-10-13 04:31] LABS: Basophils % 0.3 %; Mean Corpuscular Hemoglobin 20.7 pg (28.0-33.3); Nucleated Red Blood Cells 1.1 /100 WBC (0); Red Cell Distribution Width 19.2 % (11.5-14.5)
[2019-10-13 04:32] LABS: Basophils # 0.1 K/mcL (0.0-0.2); Eosinophils # 0.8 K/mcL (0.0-0.6); Eosinophils % 5.3 %; Hematocrit 30.8 % (37.5-50.1); Hemoglobin 8.2 g/dL (12.9-16.9); Immature Granulocytes % 0.9 % (0-4); Immature Platelets 5.1 % (1.1-6.1); Lymphocytes % 6.4 %; Mean Corpuscular HGB Conc 26.6 g/dL (31.6-35.5); Mean Corpuscular Volume 77.6 fL (83.0-100.0); Mean Platelet Volume 9.9 fL (9.4-12.4); Monocytes # 0.7 K/mcL (0.0-1.3); Monocytes % 4.5 %; Neutrophils # 12.6 K/mcL (1.6-8.9); Platelet Count 146 K/mcL (140-400); Red Blood Count 3.97 M/mcL (4.19-5.50); Segmented Neutrophils % 82.6 %; White Blood Count 15.2 K/mcL (4.3-11.1)
[2019-10-13] MEDS: *HR* Heparin 5,000 UNIT/ML VIAL SQ SCH ×2 (04:46→17:40)
[2019-10-13] MEDS: Levothyroxine 25 MCG TABLET PO SCH (04:46)
[2019-10-13 05:25] LABS: Anisocytosis 1+ (Not Present); Hypochromasia Present (Not Present); Macrocytosis Present (Not Present); Platelet Estimate Normal (Normal)
[2019-10-13] MEDS: Insulin LISPRO 300 UNITS/3 ML VIAL SQ SCH ×4 (07:26→20:20)
[2019-10-13] MEDS: Budesonide/Formoterol 80/4.5 1 PUFF INH IH SCH (07:28)
[2019-10-13] MEDS: Furosemide 40 MG TABLET PO SCH ×2 (07:56→17:40)
[2019-10-13] MEDS: Magnesium Oxide 400 MG TABLET PO SCH ×2 (07:57→19:24)
[2019-10-13] MEDS: Cholecalciferol (D-3) 1,000 UNIT (25MCG) TABLET PO SCH (07:57)
[2019-10-13] MEDS: Vitamin B Complex/Vit C/Vit E 1 EACH TABLET PO SCH (07:57)
[2019-10-13] MEDS: Sennosides 8.6 MG TABLET PO SCH ×2 (07:57→19:24)
[2019-10-13] MEDS: Thiamine (B-1) 100 MG TABLET PO SCH (07:57)
[2019-10-13] MEDS: Folic Acid 1 MG TABLET PO SCH (07:57)
[2019-10-13] MEDS: Aspirin Enteric Coated 81 MG Tablet PO SCH (07:57)
[2019-10-13] MEDS: Multivit/Ca/Min/Fe/FA 1 TAB TABLET PO SCH (07:57)
[2019-10-13] MEDS: Sodium Ferric Gluconat/Sucrose 125 MG in 0.9 % Sodium Chloride 100 ML IVPB SCH (08:17)
[2019-10-13] MEDS: Fluticasone Propionate Nasal 50 MCG/SPRAY BOTTLE NS SCH ×2 (08:20→19:34)
[2019-10-13] MEDS: *HR* HYDROmorphone PF 0.5 MG/0.5 ML SYRINGE IVP PRN (08:23)
[2019-10-13 09:31] LABS: Alanine Aminotransferase 527 Units/L (7-52); Albumin 3.5 g/dL (3.5-5.7); Albumin/Globulin Ratio 0.9 (1.1-2.2); Alkaline Phosphatase 141 Units/L (34-104); Aspartate Amino Transferase 252 Units/L (13-39); BUN/Creatinine Ratio 25 (6-26); Bilirubin,Direct 0.2 mg/dL (0.0-0.2); Bilirubin,Indirect 0.6 mg/dL (0.0-1.0); Bilirubin,Total 0.8 mg/dL (0.3-1.0); Blood Urea Nitrogen 20 mg/dL (8-23); Calcium 8.9 mg/dL (8.6-10.3); Carbon Dioxide 33 mEq/L (23-29); Chloride 96 mEq/L (98-107); Globulin 4.1 g/dL (2.4-3.5); Glucose 123 mg/dL (70-105); Osmolality,Calculated 286 (280-300); Potassium 3.9 mEq/L (3.5-5.1); Sodium 136 mEq/L (136-145); Total Protein 7.6 g/dL (6.4-8.9); eGFR For African Americans > 60 (> 60); eGFR For Non-African Americans > 60 (> 60)
[2019-10-13] MEDS: polyethylene glycoL 3350 17 GM POWD.PACK PO SCH (17:41)
[2019-10-13] MEDS: Melatonin 3 MG TABLET PO SCH (19:24)
[2019-10-13 22:26] LABS: Bilirubin,Urine Negative (Negative); Blood,Urine Negative (Negative); Clarity,Urine Clear (Clear); Color,Urine Yellow (Yellow); Glucose,Urine (UA) Normal (Normal); Ketones,Urine Negative (Negative); Leukocyte Esterase,Urine Negative (Negative); Nitrite,Urine Negative (Negative); Protein,Urine Trace mg/dL (Neg-Trace); Specific Gravity,Urine 1.016 (1.010-1.025); Urobilinogen,Urine Normal (Normal)
[2019-10-14] MEDS: Gabapentin 300 MG CAPSULE PO SCH ×3 (00:01→16:04)
[2019-10-14 03:07] LABS: Basophils % 0.4 %; Hemoglobin 7.3 g/dL (12.9-16.9)
[2019-10-14 03:09] LABS: Basophils # 0.1 K/mcL (0.0-0.2); Eosinophils # 0.6 K/mcL (0.0-0.6); Eosinophils % 3.2 %; Hematocrit 26.6 % (37.5-50.1); Immature Granulocytes % 0.9 % (0-4); Lymphocytes # 1.8 K/mcL (0.6-4.6); Lymphocytes % 10.1 %; Mean Corpuscular HGB Conc 27.4 g/dL (31.6-35.5); Mean Corpuscular Hemoglobin 21.4 pg (28.0-33.3); Mean Platelet Volume 9.8 fL (9.4-12.4); Monocytes # 1.2 K/mcL (0.0-1.3); Monocytes % 6.8 %; Neutrophils # 13.7 K/mcL (1.6-8.9); Nucleated Red Blood Cells 0.7 /100 WBC (0); Platelet Count 213 K/mcL (140-400); Red Blood Count 3.41 M/mcL (4.19-5.50); Red Cell Distribution Width 19.9 % (11.5-14.5); Segmented Neutrophils % 78.6 %; White Blood Count 17.4 K/mcL (4.3-11.1)
[2019-10-14 03:27] LABS: BUN/Creatinine Ratio 19 (6-26); Blood Urea Nitrogen 16 mg/dL (8-23); Calcium 8.7 mg/dL (8.6-10.3); Carbon Dioxide 33 mEq/L (23-29); Chloride 95 mEq/L (98-107); Glucose 96 mg/dL (70-105); Osmolality,Calculated 283 (280-300); Potassium 3.9 mEq/L (3.5-5.1); Sodium 136 mEq/L (136-145); eGFR For African Americans > 60 (> 60); eGFR For Non-African Americans > 60 (> 60)
[2019-10-14 03:32] LABS: Anisocytosis 1+ (Not Present); Hypochromasia Present (Not Present); Platelet Estimate Normal (Normal); Polychromasia 1+ (Not Present)
[2019-10-14] MEDS: Levothyroxine 25 MCG TABLET PO SCH (06:01)
[2019-10-14] MEDS: *HR* Heparin 5,000 UNIT/ML VIAL SQ SCH ×2 (06:01→16:05)
[2019-10-14] MEDS ORDERED: Lidocaine -MPF 2% 2 ML VIAL ONE (07:19)
[2019-10-14] MEDS: Sennosides 8.6 MG TABLET PO SCH ×2 (10:28→20:39)
[2019-10-14] MEDS: Multivit/Ca/Min/Fe/FA 1 TAB TABLET PO SCH (10:28)
[2019-10-14] MEDS: Folic Acid 1 MG TABLET PO SCH (10:29)
[2019-10-14] MEDS: Furosemide 40 MG TABLET PO SCH ×2 (10:29→16:04)
[2019-10-14] MEDS: Thiamine (B-1) 100 MG TABLET PO SCH (10:29)
[2019-10-14] MEDS: Aspirin Enteric Coated 81 MG Tablet PO SCH (10:29)
[2019-10-14] MEDS: Magnesium Oxide 400 MG TABLET PO SCH ×2 (10:29→20:39)
[2019-10-14] MEDS: Insulin LISPRO 300 UNITS/3 ML VIAL SQ SCH ×4 (10:30→20:58)
[2019-10-14] MEDS: Vitamin B Complex/Vit C/Vit E 1 EACH TABLET PO SCH (10:30)
[2019-10-14] MEDS: Vancomycin 2,000 MG/520 ML IV.SOLN IVPB SCH ×2 (10:30→20:39)
[2019-10-14] MEDS: Cholecalciferol (D-3) 1,000 UNIT (25MCG) TABLET PO SCH (10:32)
[2019-10-14] MEDS: levoFLOXacin 750 MG/150 ML 750 MG/150 ML BAG IVPB SCH (10:32)
[2019-10-14] MEDS: Budesonide/Formoterol 80/4.5 1 PUFF INH IH SCH (10:35)
[2019-10-14] MEDS: Fluticasone Propionate Nasal 50 MCG/SPRAY BOTTLE NS SCH ×2 (10:51→20:40)
[2019-10-14 11:28] LABS: Albumin 3.6 g/dL (3.5-5.7); Albumin/Globulin Ratio 0.9 (1.1-2.2); Bilirubin,Direct 0.2 mg/dL (0.0-0.2); Bilirubin,Indirect 0.6 mg/dL (0.0-1.0); Bilirubin,Total 0.8 mg/dL (0.3-1.0); Total Protein 7.6 g/dL (6.4-8.9)
[2019-10-14] MEDS ORDERED: Perflutren Lipid Microsphere 1.3 ML in 0.9 % Sodium Chloride 8.7 ML IVP PRN (12:02)
[2019-10-14] MEDS: Pantoprazole 40 MG VIAL IVP SCH (16:04)
[2019-10-14] MEDS: polyethylene glycoL 3350 17 GM POWD.PACK PO SCH (16:05)
[2019-10-14] MEDS: Sodium Ferric Gluconat/Sucrose 125 MG in 0.9 % Sodium Chloride 100 ML IVPB SCH (16:05)
[2019-10-14] MEDS: carvediloL 6.25 MG TABLET PO SCH (16:05)
[2019-10-14] MEDS: Melatonin 3 MG TABLET PO SCH (20:39)
[2019-10-15] MEDS: Gabapentin 300 MG CAPSULE PO SCH ×3 (00:21→16:33)
[2019-10-15 01:48] LABS: Hemoglobin 8.1 g/dL (12.9-16.9); Mean Platelet Volume 9.7 fL (9.4-12.4)
[2019-10-15 01:50] LABS: Basophils # 0.1 K/mcL (0.0-0.2); Basophils % 0.4 %; Eosinophils % 8.1 %; Hematocrit 29.2 % (37.5-50.1); Immature Granulocytes % 0.6 % (0-4); Lymphocytes # 1.7 K/mcL (0.6-4.6); Lymphocytes % 14.3 %; Mean Corpuscular HGB Conc 27.7 g/dL (31.6-35.5); Mean Corpuscular Hemoglobin 22.2 pg (28.0-33.3); Monocytes # 0.9 K/mcL (0.0-1.3); Monocytes % 7.6 %; Neutrophils # 8.1 K/mcL (1.6-8.9); Nucleated Red Blood Cells 0.4 /100 WBC (0); Platelet Count 197 K/mcL (140-400); Red Blood Count 3.65 M/mcL (4.19-5.50); Red Cell Distribution Width 20.8 % (11.5-14.5); White Blood Count 11.8 K/mcL (4.3-11.1)
[2019-10-15 02:09] LABS: BUN/Creatinine Ratio 19 (6-26); Blood Urea Nitrogen 15 mg/dL (8-23); Calcium 8.9 mg/dL (8.6-10.3); Carbon Dioxide 31 mEq/L (23-29); Chloride 96 mEq/L (98-107); Glucose 97 mg/dL (70-105); Osmolality,Calculated 279 (280-300); Potassium 3.9 mEq/L (3.5-5.1); Sodium 134 mEq/L (136-145); eGFR For African Americans > 60 (> 60); eGFR For Non-African Americans > 60 (> 60)
[2019-10-15 02:16] LABS: Anisocytosis 1+ (Not Present); Hypochromasia Present (Not Present); Macrocytosis Present (Not Present); Polychromasia 1+ (Not Present)
[2019-10-15 02:17] LABS: Platelet Estimate Normal (Normal)
[2019-10-15] MEDS: Pantoprazole 40 MG VIAL IVP SCH ×2 (06:04→18:03)
[2019-10-15] MEDS: *HR* Heparin 5,000 UNIT/ML VIAL SQ SCH ×2 (06:04→18:04)
[2019-10-15] MEDS: Levothyroxine 25 MCG TABLET PO SCH (06:04)
[2019-10-15] MEDS: Vancomycin 2,000 MG/520 ML IV.SOLN IVPB SCH (07:55)
[2019-10-15] MEDS: levoFLOXacin 750 MG/150 ML 750 MG/150 ML BAG IVPB SCH (07:56)
[2019-10-15] MEDS: Budesonide/Formoterol 80/4.5 1 PUFF INH IH SCH (08:05)
[2019-10-15] MEDS: Multivit/Ca/Min/Fe/FA 1 TAB TABLET PO SCH (08:08)
[2019-10-15] MEDS: Sennosides 8.6 MG TABLET PO SCH ×2 (08:08→22:01)
[2019-10-15] MEDS: Cholecalciferol (D-3) 1,000 UNIT (25MCG) TABLET PO SCH (08:08)
[2019-10-15] MEDS: Furosemide 40 MG TABLET PO SCH ×2 (08:08→16:33)
[2019-10-15] MEDS: Magnesium Oxide 400 MG TABLET PO SCH ×2 (08:08→22:00)
[2019-10-15] MEDS: Vitamin B Complex/Vit C/Vit E 1 EACH TABLET PO SCH (08:08)
[2019-10-15] MEDS: Thiamine (B-1) 100 MG TABLET PO SCH (08:09)
[2019-10-15] MEDS: Folic Acid 1 MG TABLET PO SCH (08:10)
[2019-10-15] MEDS: Aspirin Enteric Coated 81 MG Tablet PO SCH (08:10)
[2019-10-15] MEDS: Fluticasone Propionate Nasal 50 MCG/SPRAY BOTTLE NS SCH ×2 (08:32→22:50)
[2019-10-15] MEDS: Insulin LISPRO 300 UNITS/3 ML VIAL SQ SCH ×4 (08:33→21:44)
[2019-10-15] MEDS: carvediloL 6.25 MG TABLET PO SCH ×2 (08:35→16:33)
[2019-10-15] MEDS: Sodium Ferric Gluconat/Sucrose 125 MG in 0.9 % Sodium Chloride 100 ML IVPB SCH (11:47)
[2019-10-15] MEDS ORDERED: *HR* Propofol 500 MG/50 ML BOTTLE IVP ONE (14:48)
[2019-10-15] MEDS ORDERED: Lidocaine -MPF 2% 5 ML VIAL SQ ONE (14:48)
[2019-10-15] MEDS: polyethylene glycoL 3350 17 GM POWD.PACK PO SCH (18:04)
[2019-10-15] MEDS: Vancomycin 1,750 MG/517.5 ML IV.SOLN IVPB SCH (22:03)
[2019-10-15] MEDS: Melatonin 3 MG TABLET PO SCH (22:09)
[2019-10-16] MEDS: Gabapentin 300 MG CAPSULE PO SCH ×3 (00:18→16:37)
[2019-10-16 05:24] LABS: Hematocrit 30.7 % (37.5-50.1); Hemoglobin 8.2 g/dL (12.9-16.9); Mean Corpuscular HGB Conc 26.7 g/dL (31.6-35.5); Red Cell Distribution Width 22.3 % (11.5-14.5)
[2019-10-16 05:26] LABS: Mean Corpuscular Hemoglobin 21.9 pg (28.0-33.3); Mean Corpuscular Volume 82.1 fL (83.0-100.0); Mean Platelet Volume 9.7 fL (9.4-12.4); Platelet Count 178 K/mcL (140-400); Red Blood Count 3.74 M/mcL (4.19-5.50); White Blood Count 9.7 K/mcL (4.3-11.1)
[2019-10-16 05:46] LABS: BUN/Creatinine Ratio 17 (6-26); Blood Urea Nitrogen 17 mg/dL (8-23); Calcium 9.1 mg/dL (8.6-10.3); Carbon Dioxide 32 mEq/L (23-29); Chloride 97 mEq/L (98-107); Glucose 101 mg/dL (70-105); Osmolality,Calculated 280 (280-300); Potassium 4.4 mEq/L (3.5-5.1); Sodium 134 mEq/L (136-145); eGFR For African Americans > 60 (> 60); eGFR For Non-African Americans > 60 (> 60)
[2019-10-16] MEDS: Levothyroxine 25 MCG TABLET PO SCH (06:17)
[2019-10-16] MEDS: Pantoprazole 40 MG VIAL IVP SCH (06:17)
[2019-10-16] MEDS: *HR* Heparin 5,000 UNIT/ML VIAL SQ SCH (06:17)
[2019-10-16] MEDS: Budesonide/Formoterol 80/4.5 1 PUFF INH IH SCH (07:20)
[2019-10-16] MEDS: Insulin LISPRO 300 UNITS/3 ML VIAL SQ SCH ×4 (07:47→22:03)
[2019-10-16] MEDS: levoFLOXacin 750 MG/150 ML 750 MG/150 ML BAG IVPB SCH (08:02)
[2019-10-16] MEDS: Vancomycin 1,750 MG/517.5 ML IV.SOLN IVPB SCH (08:03)
[2019-10-16] MEDS: Cholecalciferol (D-3) 1,000 UNIT (25MCG) TABLET PO SCH (08:14)
[2019-10-16] MEDS: Furosemide 40 MG TABLET PO SCH ×2 (08:15→16:37)
[2019-10-16] MEDS: Thiamine (B-1) 100 MG TABLET PO SCH (08:15)
[2019-10-16] MEDS: Vitamin B Complex/Vit C/Vit E 1 EACH TABLET PO SCH (08:15)
[2019-10-16] MEDS: Multivit/Ca/Min/Fe/FA 1 TAB TABLET PO SCH (08:16)
[2019-10-16] MEDS: Sennosides 8.6 MG TABLET PO SCH ×2 (08:16→17:54)
[2019-10-16] MEDS: carvediloL 6.25 MG TABLET PO SCH ×2 (08:16→16:56)
[2019-10-16] MEDS: Folic Acid 1 MG TABLET PO SCH (08:16)
[2019-10-16] MEDS: Aspirin Enteric Coated 81 MG Tablet PO SCH (08:16)
[2019-10-16] MEDS: Magnesium Oxide 400 MG TABLET PO SCH ×2 (08:17→18:12)
[2019-10-16] MEDS: Apixaban 5 MG TABLET PO SCH ×2 (09:54→18:12)
[2019-10-16] MEDS: Sodium Ferric Gluconat/Sucrose 125 MG in 0.9 % Sodium Chloride 100 ML IVPB SCH (10:01)
[2019-10-16] MEDS: Fluticasone Propionate Nasal 50 MCG/SPRAY BOTTLE NS SCH ×2 (10:03→22:04)
[2019-10-16 11:12] LABS: VBG HCO3 33 mEq/L (21-27); VBG PCO2 68 mmHg (41-51); VBG PO2 201 mmHg (25-50)
[2019-10-16] MEDS: polyethylene glycoL 3350 17 GM POWD.PACK PO SCH (16:44)
[2019-10-16] MEDS: Melatonin 3 MG TABLET PO SCH (21:56)
[2019-10-16] MEDS: Doxycycline 100 MG CAPSULE PO SCH (21:57)
[2019-10-17] MEDS: Gabapentin 300 MG CAPSULE PO SCH ×4 (00:22→23:35)
[2019-10-17] MEDS: *HR* HYDROmorphone PF 0.5 MG/0.5 ML SYRINGE IVP PRN (02:17)
[2019-10-17] MEDS: Levothyroxine 25 MCG TABLET PO SCH (05:59)
[2019-10-17 06:21] LABS: VBG HCO3 32 mEq/L (21-27); VBG PCO2 61 mmHg (41-51); VBG PH 7.32 pH Units (7.32-7.42); VBG PO2 53 mmHg (25-50)
[2019-10-17 06:25] LABS: Hematocrit 29.4 % (37.5-50.1); Mean Corpuscular HGB Conc 27.2 g/dL (31.6-35.5); Mean Corpuscular Hemoglobin 22.4 pg (28.0-33.3); Mean Corpuscular Volume 82.4 fL (83.0-100.0); Mean Platelet Volume 9.6 fL (9.4-12.4); Platelet Count 198 K/mcL (140-400); Red Blood Count 3.57 M/mcL (4.19-5.50); Red Cell Distribution Width 23.4 % (11.5-14.5); White Blood Count 11.7 K/mcL (4.3-11.1)
[2019-10-17 06:49] LABS: BUN/Creatinine Ratio 17 (6-26); Blood Urea Nitrogen 19 mg/dL (8-23); Calcium 9.2 mg/dL (8.6-10.3); Carbon Dioxide 32 mEq/L (23-29); Chloride 96 mEq/L (98-107); Glucose 151 mg/dL (70-105); Osmolality,Calculated 281 (280-300); Potassium 3.8 mEq/L (3.5-5.1); Sodium 133 mEq/L (136-145); eGFR For African Americans > 60 (> 60); eGFR For Non-African Americans > 60 (> 60)
[2019-10-17] MEDS: Budesonide/Formoterol 80/4.5 1 PUFF INH IH SCH (08:06)
[2019-10-17] MEDS: Insulin LISPRO 300 UNITS/3 ML VIAL SQ SCH ×4 (08:17→21:15)
[2019-10-17] MEDS: Sodium Ferric Gluconat/Sucrose 125 MG in 0.9 % Sodium Chloride 100 ML IVPB SCH (08:27)
[2019-10-17] MEDS: levoFLOXacin 750 MG TABLET PO SCH (08:31)
[2019-10-17] MEDS: Aspirin Enteric Coated 81 MG Tablet PO SCH (08:32)
[2019-10-17] MEDS: Vitamin B Complex/Vit C/Vit E 1 EACH TABLET PO SCH (08:32)
[2019-10-17] MEDS: Thiamine (B-1) 100 MG TABLET PO SCH (08:32)
[2019-10-17] MEDS: Cholecalciferol (D-3) 1,000 UNIT (25MCG) TABLET PO SCH (08:34)
[2019-10-17] MEDS: Folic Acid 1 MG TABLET PO SCH (08:34)
[2019-10-17] MEDS: carvediloL 6.25 MG TABLET PO SCH ×2 (08:35→16:22)
[2019-10-17] MEDS: Furosemide 40 MG TABLET PO SCH ×2 (08:35→16:27)
[2019-10-17] MEDS: Magnesium Oxide 400 MG TABLET PO SCH ×2 (08:35→21:23)
[2019-10-17] MEDS: Apixaban 5 MG TABLET PO SCH ×2 (08:35→21:23)
[2019-10-17] MEDS: Doxycycline 100 MG CAPSULE PO SCH ×2 (08:36→21:23)
[2019-10-17] MEDS: Multivit/Ca/Min/Fe/FA 1 TAB TABLET PO SCH (08:36)
[2019-10-17] MEDS: Sennosides 8.6 MG TABLET PO SCH ×2 (08:36→21:23)
[2019-10-17] MEDS: Fluticasone Propionate Nasal 50 MCG/SPRAY BOTTLE NS SCH ×2 (08:40→21:24)
[2019-10-17] MEDS: polyethylene glycoL 3350 17 GM POWD.PACK PO SCH (16:22)
[2019-10-17] MEDS: Melatonin 3 MG TABLET PO SCH (21:23)
[2019-10-18] MEDS: *HR* HYDROmorphone PF 0.5 MG/0.5 ML SYRINGE IVP PRN ×2 (01:33→10:35)
[2019-10-18] MEDS: Levothyroxine 25 MCG TABLET PO SCH (05:24)
[2019-10-18] MEDS: Budesonide/Formoterol 80/4.5 1 PUFF INH IH SCH (07:45)
[2019-10-18] MEDS: Insulin LISPRO 300 UNITS/3 ML VIAL SQ SCH ×2 (09:01→12:16)
[2019-10-18] MEDS: Aspirin Enteric Coated 81 MG Tablet PO SCH (09:02)
[2019-10-18] MEDS: Magnesium Oxide 400 MG TABLET PO SCH (09:02)
[2019-10-18] MEDS: Apixaban 5 MG TABLET PO SCH (09:02)
[2019-10-18] MEDS: Sennosides 8.6 MG TABLET PO SCH (09:02)
[2019-10-18] MEDS: carvediloL 6.25 MG TABLET PO SCH (09:03)
[2019-10-18] MEDS: Vitamin B Complex/Vit C/Vit E 1 EACH TABLET PO SCH (09:03)
[2019-10-18] MEDS: Gabapentin 300 MG CAPSULE PO SCH (09:03)
[2019-10-18] MEDS: levoFLOXacin 750 MG TABLET PO SCH (09:03)
[2019-10-18] MEDS: Thiamine (B-1) 100 MG TABLET PO SCH (09:03)
[2019-10-18] MEDS: Folic Acid 1 MG TABLET PO SCH (09:04)
[2019-10-18] MEDS: Cholecalciferol (D-3) 1,000 UNIT (25MCG) TABLET PO SCH (09:04)
[2019-10-18] MEDS: Doxycycline 100 MG CAPSULE PO SCH (09:04)
[2019-10-18] MEDS: Furosemide 40 MG TABLET PO SCH (09:04)
[2019-10-18] MEDS: Multivit/Ca/Min/Fe/FA 1 TAB TABLET PO SCH (09:04)
[2019-10-18] MEDS: Sodium Ferric Gluconat/Sucrose 125 MG in 0.9 % Sodium Chloride 100 ML IVPB SCH (09:04)
[2019-10-18 10:16] VITALS: BP 130/82
[2019-10-18] MEDS: Fluticasone Propionate Nasal 50 MCG/SPRAY BOTTLE NS SCH (12:39)
== END 2019-10-18 14:30 | DRG 342 ==
LOC: 3NENU → SUATTDRO 14:33
PROVIDERS: ADMIT Family Medicine; ATTEND Internal Medicine